=== PATIENT | female | born 1935 | race Caucasian/White ===

== ENCOUNTER 2018-02-10 00:02 | Outpatient (CLI) | payer MEDICARE, BC, SELFPAY ==
--- NOTE | 2018-02-10 09:00 | DI.MAMMO_ITS ---
SYMPTOMS/DIAGNOSIS: SCREENING MAMMO, Z12.31, FAMILY H/O BREAST CA, Z80.3 BILATERAL SCREENING MAMMOGRAM: Mammograms were interpreted according to the usual protocol including computer analysis with CAD system, tomosynthesis and C view imaging. Comparison is made with exams from 2014 through 2017. The breasts are composed of scattered fibroglandular densities. No suspicious masses or suspicious microcalcifications are seen. There has been no significant change. IMPRESSION: Category 1B, negative mammogram. Continued screening should be based on the patient's clinical status given her age. [facility] ASSESSMENT OF FINDINGS: Negative. Category 1. Patient will receive a letter notifying them of these results. BI-RADS category B. There are scattered areas of fibroglandular density.
== END 2018-02-10 00:22 ==
PROVIDERS: PCP Nurse Practitioner Family; Visit Provider Nurse Practitioner Family
DX: Z12.31 Encounter for screening mammogram for malignant neoplasm of breast (principal); Z80.3 Family history of malignant neoplasm of breast
CPT/HCPCS: 77063; 77067

== ENCOUNTER 2018-02-12 08:05 | Outpatient (REF) | payer MEDICARE, BC, SELFPAY ==
[2018-02-12 13:03] LABS: Anion Gap 6.3 mmol/L (3-11); BUN 15 mg/dL (7-18); CO2 30.7 mmol/L (21.0-32.0); CREATININE 0.67 mg/dL (0.55-1.02); Calcium 9.2 mg/dL (8.5-10.1); Chloride 104 mmol/L (98-107); Cholesterol 279 mg/dL (50-200); Glucose 94 mg/dL (70-100); HDL Cholesterol 73 mg/dL (40-60); LDL CHOLESTEROL 188 mg/dL (<100); Potassium 4.1 mmol/L (3.5-5.1); Sodium 141 mmol/L (136-145); Triglyceride 89 mg/dL (30-150)
== END 2018-02-12 08:25 ==
LOC: NCHCN 08:05
PROVIDERS: PCP Nurse Practitioner Family; Visit Provider Nurse Practitioner Family
DX: I10 Essential (primary) hypertension (principal); E78.5 Hyperlipidemia, unspecified
CPT/HCPCS: 80048; 80061; 83721

== ENCOUNTER 2018-03-31 08:09 | Emergency (ER) | payer MEDICARE, BC, SELFPAY ==
[2018-03-31 08:23] VITALS: BP 159/78; PULSE 77; RESP 16; TEMP 36.5; O2SAT 97
[2018-03-31 08:28] LABS: Bilirubin Negative (Negative); Blood Small (Negative); Clarity Clear; Glucose Negative (Negative); Ketones Negative (Negative); Leukocyte Esterase Negative (Negative); Nitrite Negative (Negative); Specific Gravity 1.015 (1.005-1.025); Urobilinogen 0.2 EU/dL (Up TO 0.2); pH 7.5 (5-8)
[2018-03-31 08:40] LABS: Bacteria Few HPF (Negative); C & S Indicated? No/Sq. Contamination; Casts Negative LPF (Negative); Crystals Negative HPF (Negative); Epithelial Cells Moderate HPF (Negative); Mucus Moderate (Negative); Other Cells Rare Yeast (Negative); RBC 0-2 (0-2); WBC 0-2 HPF (0-5)
--- NOTE | 2018-03-31 08:42 | DI.CT_ITS ---
SYMPTOM/DIAGNOSIS: RT LOWER/ ? ABD WALL PAIN CT ABDOMEN AND PELVIS: There are no prior comparison exams. Images were performed from the lung bases through the ischial tuberosities after IV and oral contrast. The lung bases are clear. There is a small hiatal hernia. There are several liver cysts, the largest in the right lobe measuring k7.5 cm in diameter. The patient is status post cholecystectomy. There is no biliary dilatation. The spleen, adrenals and pancreas appear normal. There are no renal calculi or hydronephrosis. The bladder appears normal. The patient is status post hysterectomy. There is prominent colonic diverticulosis, greatest at the sigmoid. There is a moderate increased quantity of stool. There are no inflammatory changes. The appendix appears normal. There is no small bowel dilatation. Degenerative changes are seen in the spine. The aorta shows calcification and is normal in diameter. There is no inguinal or abdominal wall hernia. IMPRESSION: Diverticulosis. No evidence of diverticulitis. Small hiatal hernia. Large liver cysts.
--- NOTE | 2018-03-31 08:46 | ED.GENADUL_ITS ---
Discharge Plan Disposition Patient Disposition: HOME Condition: Improving Discharge Details Chief Complaint: Abd Prob Clinical Impression: Abdominal wall strain Primary Care Provider: Elyssa Mi ED Provider: Jerman Severino Home Meds and New Rx's Prescriptions: No Action No Known Home Meds RF: 0 Discharge Instructions Instructions: Muscle Strain (ED) Additional Instructions: May use ibuprofen 400-600 mg every 8 hours as needed for pain, take with food. May apply warm compress to area. Resume routine and activities as tolerated. Please follow-up with regular doctor if not improving in 3-5 days time Return if you develop a fever, vomiting, worsening pain, a rash or any other acute concern Medical Decision Making Pleasant 82-year-old female with intermittent episodes of abdominal pain that has been primarily positional over days to weeks time. No change of bowel or bladder habits. No fever. No weight loss or night sweats. She is well-appearing with unremarkable vital signs. I do not appreciate a spigelian hernia or other mass on exam. Differential diagnosis would include colitis, adenitis, abdominal wall strain or pathology. Patient's laboratories including CBC, conference of panel with LFTs, and urinalysis are unremarkable. Her imaging reveals a hepatic cyst and other chronic changes but no acute findings. She subsequently recalls initiating a new abdominal exercise program and this may be abdominal wall strain. Discussed with her home management as well as return precautions. Stable for outpatient management at this time. Lab Data Lab results reviewed: Yes I reviewed the patient's lab results. Laboratory Results - last 24 hr 03/31/18 03/31/18 03/31/18 08:20 08:50 08:50 WBC 6.12 RBC 4.83 Hgb 15.1 Hct 44.0 MCV 91.1 MCH 31.3 MCHC 34.3 RDW 12.9 Plt Count 263 MPV 10.5 Immature Gran % 0.0 Neutrophils % 71.3 Lymphocytes % 16.2 Monocytes % 8.3 Eosinophils % 3.9 Basophils % 0.3 Absolute Neutrophils 4.36 Absolute Lymphocytes 0.99 L Absolute Monocytes 0.51 Absolute Eosinophils 0.24 Absolute Basophils 0.02 Sodium 142 Potassium 3.8 Chloride 105 Carbon Dioxide 27.4 Anion Gap 9.6 BUN 14 Creatinine 0.67 Estimated GFR/1.73 m2 >= 60.00 Glucose 105 H Calcium 8.7 Magnesium 2.2 Total Bilirubin 0.6 AST 15 ALT 19 Alkaline Phosphatase 93 Total Protein 7.3 Albumin 3.6 Urine Color Yellow Urine Clarity Clear Urine pH 7.5 Ur Specific [place] 1.015 Urine Protein Negative Urine Ketones Negative Urine Blood Small H Urine Nitrite Negative Urine Bilirubin Negative Urine Urobilinogen 0.2 Ur Leukocyte Esterase Negative Urine RBC 0-2 Urine WBC 0-2 Ur Epithelial Cells Moderate Urine Crystals Negative Urine Bacteria Few Urine Casts Negative Urine Mucus Moderate Urine Other Rare yeast Ur Culture Indicated? No/sq. contamination Urine Glucose Negative HPI General Mode of arrival: ambulatory . Date/Time Provider Initiated Documentation: 03/31/18 08:21 . Limitations to Documentation: no limitations . Information obtained by: patient . History of Present Illness 82 year old F presents to the emergency department with the chief complaint of Right abdominal pain, intermittent over days time. No change with urine, described as mild, Quality is described as dull, and is localized to the abdomen and right. Patient reports no radiation. Patient started experiencing this day(s) and it has been intermittent. No relieving factors improve symptom(s), No exacerbating factors reported . Patient notes no other symptoms.. HPI Narrative: Abdominal pain is been intermittent, primarily occurs while standing, improved with resting. Denies trauma or injury. No bowel or bladder changes per Related Data Home Medications Medication Instructions Recorded Confirmed Unknown [No Known Home Meds] 03/31/18 03/31/18 Allergies Allergy/AdvReac Type Severity Reaction Status Date / Time No Known Allergies Allergy Unverified 03/31/18 08:30 General Stated Complaint: Abd Prob NADINE: 3 Review of Systems Review of Systems 8 systems reviewed and otherwise neg PFSH Social History Smoking/Tobacco Use Status: Former Tobacco Use Social History Smoking/Tobacco Use Status: Former Tobacco Use Exam Narrative Exam Narrative: GEN: awake, alert, oriented 3. Pleasant, well groomed, interactive. HEAD: Normocephalic, atraumatic ENT: Mucous membranes moist, oropharynx unremarkable, External ear exam unremarkable EYES: PERRL, EOMI NECK: Full ROM, no JACKI, no menigismus CHEST/RESP: Nontender, clear to auscultation bilateral, no wheeze/rhonchi/rales CARDIOVASCULAR: RRR, no murmur, rub minna. 2+ Rad pulse bilateral ABDOMEN: Soft, tender in the right lower quadrant/abdominal wall, no mass. + Bowel sounds EXT: Full ROM, no edema, no rash Neuro: Grossly normal neurologic exam, conversant, interactive. Psych: Speech fluent, thoughts congruent, affect normal Course Vital Signs Temperature 36.5 C 03/31/18 08:23 Pulse 77 03/31/18 08:23 Respiratory Rate 16 03/31/18 08:23 Blood Pressure 159/78 H 03/31/18 08:23 Pulse Oximetry 97 03/31/18 08:23 Temperature 36.5 C 03/31/18 08:23 Temperature Source Temporal Artery Scan 03/31/18 08:23 Pulse 77 03/31/18 08:23 Respiratory Rate 16 03/31/18 08:23 Respiratory Effort Non-Labored 03/31/18 08:28 Blood Pressure 159/78 H 03/31/18 08:23 Blood Pressure Position Sitting 03/31/18 08:23 Pulse Oximetry 97 03/31/18 08:23 Oxygen Delivery Method Room Air 03/31/18 08:23 Oxygen Flow Rate 0 03/31/18 08:23 Pain Level 2 03/31/18 08:23 Lab/Test Results Lab/Test Results: Laboratory Tests Range/Units 03/31/18 08:20 Urine Color (Yellow) Yellow Urine Clarity Clear Urine pH (5-8) 7.5 Ur Specific [place] (1.005-1.025) 1.015 Urine Protein (Negative) mg/dL Negative Urine Ketones (Negative) mg/dL Negative Urine Blood (Negative) Small H Urine Nitrite (Negative) Negative Urine Bilirubin (Negative) Negative Urine Urobilinogen (Up TO 0.2) EU/dL 0.2 Ur Leukocyte Esterase (Negative) Negative Urine RBC (0-2) 0-2 Urine WBC (0-5) HPF 0-2 Ur Epithelial Cells (Negative) HPF Moderate Urine Crystals (Negative) HPF Negative Urine Bacteria (Negative) HPF Few Urine Casts (Negative) LPF Negative Urine Mucus (Negative) Moderate Urine Other (Negative) Rare yeast Ur Culture Indicated? No/sq. contamination Urine Glucose (Negative) mg/dL Negative
[2018-03-31] MEDS: Omnipaque 350 MG/ML 50 ML BTL PO (08:52)
[2018-03-31 09:02] LABS: Absolute Basophil Count 0.02 k/cumm (0.0-0.2); Absolute Eosinophil Count 0.24 k/cumm (0.0-0.7); Absolute Lymphocyte Count 0.99 k/cumm (1.2-3.4); Absolute Monocyte Count 0.51 k/cumm (0.11-0.7); Absolute Neutrophil Count 4.36 k/cumm (1.2-6.7); Basophils % 0.3; Eosinophils % 3.9; HGB 15.1 g/dL (12.0-15.5); Lymphocytes % 16.2; Mean Corp. HGB Concentration 34.3 g/dL (32.0-36.0); Mean Corpuscular Hemoglobin 31.3 pg (27.0-33.0); Mean Corpuscular Volume 91.1 fL (80-95); Mean Platelet Volume 10.5 fL (8.0-11.0); Monocytes % 8.3; Neutrophils % 71.3; Platelet Count 263 x1000/uL (130-400); RBC 4.83 m/cumm (4.00-5.20); RBC Distribution Width 12.9 % (11.7-14.6); White Blood Cell Count 6.12 k/cumm (4.4-10.8)
[2018-03-31 09:13] LABS: ALT 19 U/L (12-78); AST 15 U/L (15-37); Albumin 3.6 g/dL (3.4-5.0); Alkaline Phosphatase 93 U/L (46-116); Anion Gap 9.6 mmol/L (3-11); BUN 14 mg/dL (7-18); Bilirubin, Total 0.6 mg/dL (0.2-1.0); CO2 27.4 mmol/L (21.0-32.0); CREATININE 0.67 mg/dL (0.55-1.02); Calcium 8.7 mg/dL (8.5-10.1); Chloride 105 mmol/L (98-107); Glucose 105 mg/dL (70-100); Magnesium 2.2 mg/dL (1.8-2.4); Potassium 3.8 mmol/L (3.5-5.1); Sodium 142 mmol/L (136-145); Total Protein 7.3 g/dL (6.4-8.2)
[2018-03-31] MEDS: Omnipaque 350 MG/ML 100 ML BTL IV (10:37)
[2018-03-31 10:39] VITALS: BP 172/65; PULSE 70; RESP 18; TEMP 36.7; O2SAT 97
[2018-03-31 11:06] VITALS: BP 172/65; PULSE 70; RESP 18; TEMP 36.7; O2SAT 97
== END 2018-03-31 10:57 | disposition home or self-care (01) ==
LOC: ER 11:24
PROVIDERS: Emergency Provider Emergency Medicine; PCP Nurse Practitioner Family
DX: S39.011A Strain of muscle, fascia and tendon of abdomen, initial encounter (principal); X50.9XXA Other and unspecified overexertion or strenuous movements or postures, initial encounter; I10 Essential (primary) hypertension
CPT/HCPCS: 36415; 80053; 99285; 74177; 81003; 81015; 83735; 85025; 99284; J3490; Q9967

== ENCOUNTER 2019-03-31 11:45 | Outpatient (REF) | payer MEDICARE, BC, SELFPAY ==
[2019-03-31 20:43] LABS: ALT 19 U/L (14-59); AST 15 U/L (15-37); Albumin 3.6 g/dL (3.4-5.0); Alkaline Phosphatase 85 U/L (46-116); BUN 17 mg/dL (7-18); Bilirubin, Total 0.5 mg/dL (0.2-1.0); CREATININE 0.71 mg/dL (0.55-1.02); Calcium 9.1 mg/dL (8.5-10.1); Calculated LDL 193 mg/dL; Chloride 106 mmol/L (98-107); Cholesterol 271 mg/dL (<200); Glucose 90 mg/dL (74-106); HDL Cholesterol 68 mg/dL (40-60); Potassium 4.4 mmol/L (3.5-5.1); Sodium 144 mmol/L (136-145); Triglyceride 54 mg/dL (<150)
== END 2019-03-31 12:05 ==
LOC: NCHCN 11:45
PROVIDERS: PCP Nurse Practitioner Family; Visit Provider Nurse Practitioner Family
DX: E78.5 Hyperlipidemia, unspecified (principal); I10 Essential (primary) hypertension; K30 Functional dyspepsia; M85.80 Other specified disorders of bone density and structure, unspecified site; F17.210 Nicotine dependence, cigarettes, uncomplicated
CPT/HCPCS: 80053; 80061

== ENCOUNTER 2019-05-14 12:32 | Outpatient (REF) | payer MEDICARE, BC, SELFPAY ==
[2019-05-14 14:00] LABS: ALT 20 U/L (14-59); AST 16 U/L (15-37); Albumin 3.8 g/dL (3.4-5.0); Alkaline Phosphatase 95 U/L (46-116); Anion Gap 9.1 mmol/L (3-11); BUN 14 mg/dL (7-18); Bilirubin, Total 0.6 mg/dL (0.2-1.0); CO2 29.9 mmol/L (21.0-32.0); CREATININE 0.71 mg/dL (0.55-1.02); Calcium 9.4 mg/dL (8.5-10.1); Calculated LDL 171 mg/dL; Chloride 105 mmol/L (98-107); Cholesterol 257 mg/dL (<200); Glucose 94 mg/dL (74-106); HDL Cholesterol 70 mg/dL (40-60); Potassium 4.7 mmol/L (3.5-5.1); Sodium 144 mmol/L (136-145); Total Protein 7.1 g/dL (6.4-8.2); Triglyceride 80 mg/dL (<150)
== END 2019-05-14 12:52 ==
LOC: NCHCN 12:32
PROVIDERS: PCP Nurse Practitioner Family; Visit Provider Nurse Practitioner Family
DX: E78.5 Hyperlipidemia, unspecified (principal); I10 Essential (primary) hypertension
CPT/HCPCS: 80053; 80061

== ENCOUNTER 2019-06-11 16:34 | Outpatient (REF) | payer MEDICARE, BC, SELFPAY ==
[2019-06-11 21:21] LABS: Abs Immature Grans 0.01 k/cumm (0.0-0.09); Absolute Basophil Count 0.01 k/cumm (0.0-0.2); Absolute Eosinophil Count 0.17 k/cumm (0.0-0.7); Absolute Monocyte Count 0.58 k/cumm (0.11-0.7); Absolute Neutrophil Count 2.72 k/cumm (1.2-6.7); Basophils % 0.2; Eosinophils % 3.5; HCT 43.7 % (36.0-46.0); HGB 15.3 g/dL (12.0-15.5); Immature Grans % 0.2 %; Lymphocytes % 28.6; Mean Corpuscular Hemoglobin 31.7 pg (27.0-33.0); Mean Corpuscular Volume 90.7 fL (80-95); Mean Platelet Volume 10.8 fL (8.0-11.0); Monocytes % 11.9; Neutrophils % 55.6; Platelet Count 274 x1000/uL (130-400); RBC 4.82 m/cumm (4.00-5.20); RBC Distribution Width 13.1 % (11.7-14.6); White Blood Cell Count 4.89 k/cumm (4.4-10.8)
[2019-06-11 21:27] LABS: ALT 20 U/L (14-59); AST 23 U/L (15-37); Albumin 3.6 g/dL (3.4-5.0); Alkaline Phosphatase 93 U/L (46-116); Anion Gap 7.7 mmol/L (3-11); BUN 10 mg/dL (7-18); Bilirubin, Total 0.4 mg/dL (0.2-1.0); CO2 29.3 mmol/L (21.0-32.0); CREATININE 0.69 mg/dL (0.55-1.02); Calcium 9.7 mg/dL (8.5-10.1); Chloride 106 mmol/L (98-107); Creatine Kinase 38 U/L (26-192); Glucose 83 mg/dL (74-106); Potassium 3.5 mmol/L (3.5-5.1); Sodium 143 mmol/L (136-145); Total Protein 6.7 g/dL (6.4-8.2)
== END 2019-06-11 16:54 ==
LOC: NCHCN 16:34
PROVIDERS: PCP Nurse Practitioner Family; Visit Provider Internal Medicine
DX: R53.1 Weakness (principal); R07.89 Other chest pain
CPT/HCPCS: 80053; 82550; 85025

== ENCOUNTER 2019-06-15 01:21 | Outpatient (CLI) | payer MEDICARE, BC, SELFPAY ==
--- NOTE | 2019-06-15 | DI.RAD_ITS ---
EXAM: XR CHEST 2V PA LATERAL CLINICAL HISTORY: ATYPICAL CHEST PAIN R07.89, WEAKNESS R53.1 TECHNIQUE: COMPARISON: No exams were available for comparison FINDINGS: PA and lateral chest was performed. No prior radiographs available for comparison. Cardiac size is within normal limits. Lungs are predominantly clear but there is a question of a vaguely nodular rad iodensity projected over the right infrahilar region, possibility of intrapulmonary nodule or consoli dation is raised. No pleural effusion seen. IMPRESSION: A question nodular right infrahilar radiodensity, intrapulmonary nodule or consolidation may be prese nt. Follow-up chest film recommended following treatment, if the findings do not resolve additional evaluation with chest CT would be recommended to evaluate the possibility of intrapulmonary mass.
== END 2019-06-15 01:41 ==
PROVIDERS: PCP Nurse Practitioner Family; Visit Provider Internal Medicine
DX: R07.89 Other chest pain (principal); R53.1 Weakness; R91.8 Other nonspecific abnormal finding of lung field
CPT/HCPCS: 71046

== ENCOUNTER 2019-06-29 00:46 | Outpatient (CLI) | payer MEDICARE, BC, SELFPAY ==
--- NOTE | 2019-06-29 | DI.CT_ITS ---
EXAM: CT CHEST W CLINICAL HISTORY: F/U ABNL CHEST XRAY, R91.8, ? RT HILAR MASS OR ADENOPATHY TECHNIQUE: Imaging Protocol: Axial computed tomography images with coronal and sagittal reformatted images were created and reviewed CONTRAST MATERIAL: Intravenous: Omnipaque 350 Contrast volume:70 mL contrast route:IV - XR CHEST 2V PA LATERAL from 06/15/2019 FINDINGS: Tracheobronchial tree: Patent where visualized. Mediastinum and Mine: No dominant adenopathy or fluid collection. Small hiatal hernia. Pulmonary parenchyma: Small infiltrate in the posterior aspect of the right upper lobe. No wireless architect ural distortion. No pulmonary nodule. Pleura: No effusion or pneumothorax. Heart: The heart is not dilated. Mild coronary artery calcification. Aorta: No pericardial effusion. Atherosclerosis. Upper abdomen: Stable hepatic cysts. Lymph nodes: Within normal limits. Bones: Degenerative changes present. IMPRESSION: 1. No evidence of a pulmonary nodule or thoracic metastatic disease. 2. Right upper lobe infiltrate. This may represent atelectasis or pneumonia. 3. Stable hepatic cysts. DATA REPOSITORY: All CT scans at this facility are submitted to the National Radiology Data Registry (NRDR) Dose Index Registry (DIR) with the [employer] (A[employer]). RADIATION OPTIMIZATION: All CT scans at this facility use at least one of these dose optimization te chniques: automated exposure control; mA and/or kV adjustment per patient size (includes targeted exa ms where dose is matched to clinical indication); or iterative reconstruction.
[2019-06-29] MEDS: Omnipaque 350 MG/ML 100 ML BTL IV (13:56)
== END 2019-06-29 01:06 ==
PROVIDERS: PCP Nurse Practitioner Family; Visit Provider Internal Medicine
DX: R91.8 Other nonspecific abnormal finding of lung field (principal); K44.9 Diaphragmatic hernia without obstruction or gangrene; K76.89 Other specified diseases of liver
CPT/HCPCS: 71260; J3490

== ENCOUNTER 2019-07-02 13:51 | Outpatient (REF) | payer MEDICARE, BC, SELFPAY ==
[2019-07-02 13:00] LABS: ALT 18 U/L (14-59); AST 17 U/L (15-37); Albumin 3.4 g/dL (3.4-5.0); Alkaline Phosphatase 95 U/L (46-116); Anion Gap 7.2 mmol/L (3-11); BUN 20 mg/dL (7-18); Bilirubin, Total 0.3 mg/dL (0.2-1.0); CO2 28.8 mmol/L (21.0-32.0); CREATININE 0.66 mg/dL (0.55-1.02); Calcium 8.6 mg/dL (8.5-10.1); Calculated LDL 183 mg/dL (<100); Chloride 105 mmol/L (98-107); Cholesterol 264 mg/dL (<200); Glucose 99 mg/dL (74-106); HDL Cholesterol 67 mg/dL (40-60); Potassium 4.1 mmol/L (3.5-5.1); Sodium 141 mmol/L (136-145); Total Protein 6.6 g/dL (6.4-8.2); Triglyceride 73 mg/dL (<150)
== END 2019-07-02 14:11 ==
LOC: NCHCN 13:51
PROVIDERS: PCP Nurse Practitioner Family; Visit Provider Nurse Practitioner Family
DX: E78.5 Hyperlipidemia, unspecified (principal); I10 Essential (primary) hypertension; K30 Functional dyspepsia; R07.89 Other chest pain; A60.00 Herpesviral infection of urogenital system, unspecified; M85.80 Other specified disorders of bone density and structure, unspecified site; Z80.3 Family history of malignant neoplasm of breast; R32 Unspecified urinary incontinence
CPT/HCPCS: 80053; 80061

== ENCOUNTER 2020-07-06 09:06 | Outpatient (REF) | payer MEDICARE, BC, SELFPAY ==
[2020-07-06 14:22] LABS: ALT 19 U/L (14-59); AST 15 U/L (15-37); Albumin 3.6 g/dL (3.4-5.0); Alkaline Phosphatase 94 U/L (46-116); Anion Gap 6.2 mmol/L (3-11); BUN 19 mg/dL (7-18); Bilirubin, Total 0.6 mg/dL (0.2-1.0); CO2 29.8 mmol/L (21.0-32.0); CREATININE 0.7 mg/dL (0.55-1.02); Calcium 9.6 mg/dL (8.5-10.1); Chloride 106 mmol/L (98-107); Glucose 108 mg/dL (74-106); Potassium 4.9 mmol/L (3.5-5.1); Sodium 142 mmol/L (136-145); Total Protein 7.1 g/dL (6.4-8.2)
== END 2020-07-06 09:07 | disposition home or self-care (01) ==
LOC: NCHCN 09:06
PROVIDERS: PCP Nurse Practitioner Family; Visit Provider Nurse Practitioner Family
DX: I10 Essential (primary) hypertension (principal); E78.5 Hyperlipidemia, unspecified
CPT/HCPCS: 80053

== ENCOUNTER 2020-09-08 13:17 | Outpatient (REF) | payer MEDICARE, BC, SELFPAY ==
[2020-09-08 21:34] LABS: Anion Gap 11.1 mmol/L (3-11); BUN 10 mg/dL (7-18); CO2 23.9 mmol/L (21.0-32.0); CREATININE 0.6 mg/dL (0.55-1.02); Chloride 108 mmol/L (98-107); Glucose 92 mg/dL (74-106); Sodium 143 mmol/L (136-145); TSH (W/Ref FT4) 2.09 uIU/mL (0.36-3.74); Vitamin B12 601 pg/mL (193-986)
== END 2020-09-08 13:18 | disposition home or self-care (01) ==
LOC: NCHCN 13:17
PROVIDERS: PCP Nurse Practitioner Family; Visit Provider Nurse Practitioner Family
DX: G60.9 Hereditary and idiopathic neuropathy, unspecified (principal); R25.1 Tremor, unspecified
CPT/HCPCS: 80048; 82607; 84443

== ENCOUNTER 2020-09-09 19:14 | Outpatient (REF) | payer MEDICARE, BC, SELFPAY ==
[2020-09-09 19:33] LABS: Hemoglobin A1C 5.7 % (<5.7)
== END 2020-09-09 19:15 | disposition home or self-care (01) ==
LOC: NCHCN 19:14
PROVIDERS: PCP Nurse Practitioner Family; Visit Provider Nurse Practitioner Family
DX: G60.9 Hereditary and idiopathic neuropathy, unspecified (principal); R79.89 Other specified abnormal findings of blood chemistry
CPT/HCPCS: 83036

== ENCOUNTER 2020-12-22 17:17 | Outpatient (REF) | payer MEDICARE, BC, SELFPAY ==
[2020-12-22 20:45] LABS: Abs Immature Grans 0.01 10^3/uL (0.0-0.06); Absolute Basophil Count 0.05 10^3/uL (0.0-0.2); Absolute Eosinophil Count 0.17 10^3/uL (0.0-0.7); Absolute Lymphocyte Count 1.27 10^3/uL (1.2-3.4); Absolute Monocyte Count 0.57 10^3/uL (0.1-0.8); Absolute Neutrophil Count 3.58 10^3/uL (1.2-6.7); Basophils % 0.9; HCT 45.3 % (36.0-46.0); Immature Grans % 0.2; Lymphocytes % 22.5; MCH 30.8 pg (27.0-33.0); MCHC 33.1 % (32.0-36.0); MPV 11.4 fL (8.0-11.0); Monocytes % 10.1; Neutrophils % 63.3; Nucleated RBC 0 %; Platelet Count 261 10^3/uL (130-400); RBC 4.87 10^6/uL (3.93-5.22); RDW 13.1 % (11.7-14.6); WBC 5.65 10^3/uL (4.4-10.8)
[2020-12-22 21:06] LABS: ALT 21 U/L (14-59); AST 19 U/L (15-37); Albumin 3.9 g/dL (3.4-5.0); Alkaline Phosphatase 95 U/L (46-116); Anion Gap 9.1 mmol/L (3-11); BUN 10 mg/dL (7-18); Bilirubin, Total 0.4 mg/dL (0.2-1.0); CO2 28.9 mmol/L (21.0-32.0); CREATININE 0.7 mg/dL (0.55-1.02); Calcium 9.1 mg/dL (8.5-10.1); Chloride 105 mmol/L (98-107); Glucose 102 mg/dL (74-106); Potassium 3.9 mmol/L (3.5-5.1); Sodium 143 mmol/L (136-145); Total Protein 7.1 g/dL (6.4-8.2)
[2020-12-23 17:03] LABS: CRP, High Sensitivity 2.35 mg/L (See Note)
[2020-12-25 11:42] LABS: COVID-19 RT-PCR UVMMC Result Negative (Negative)
== END 2020-12-22 17:18 | disposition home or self-care (01) ==
LOC: NCHCN 17:17
PROVIDERS: PCP Nurse Practitioner Family; Visit Provider Family Medicine
DX: Z20.822 Contact with and (suspected) exposure to COVID-19 (principal); J06.9 Acute upper respiratory infection, unspecified; R53.83 Other fatigue
CPT/HCPCS: 80053; 86141; U0003; 85025

== ENCOUNTER 2021-01-20 16:27 | Outpatient (REF) | payer MEDICARE, BC, SELFPAY ==
[2021-01-20 20:48] LABS: Iron 83 ug/dL (50-170)
[2021-01-20 21:17] LABS: NT-proBNP 255 pg/mL (<300)
[2021-01-23 11:26] LABS: Lyme Ab w Rflx to Lyme Confirm Negative (Negative)
[2021-01-24 16:48] LABS: Anaplasma phagocytophilum Negative (Negative); B. miyamotoi PCR Negative (Negative); Babesia divergens/MO-1 Negative (Negative); Babesia duncani Negative (Negative); Babesia microti Negative (Negative); Ehrlichia chaffeensis Negative (Negative); Ehrlichia ewingii/canis Negative (Negative); Ehrlichia muris eauclairensis Negative (Negative)
== END 2021-01-20 16:28 | disposition home or self-care (01) ==
LOC: NCHCN 16:27
PROVIDERS: PCP Nurse Practitioner Family; Visit Provider Nurse Practitioner Family
DX: R53.83 Other fatigue (principal)
CPT/HCPCS: 87798; 83540; 83880; 86618

== ENCOUNTER 2021-01-24 01:09 | Outpatient (CLI) | payer MEDICARE, BC, SELFPAY ==
--- NOTE | 2021-01-24 | DI.RAD_ITS ---
Exam(s) XR CHEST 2V PA LATERAL EXAM: XR CHEST 2V PA LATERAL CLINICAL HISTORY: SOB,R06.02,FATIGUE,R53.83,SMOKER,CHEST PAIN,R07.9 TECHNIQUE: 2D digital imaging was performed of the chest. Two images were obtained. PA and lateral views were obtained. COMPARISON: CR XR CHEST 2V PA LATERAL from 06/15/2019 FINDINGS: MEDIASTINUM: Normal. HEART: Normal. PULMONARY VASCULATURE: Normal. LUNGS: Clear. PLEURAL SPACE: No pleural effusion or pneumothorax. BONE:Within normal limits for the patient's age. OTHER FINDINGS:Normal. IMPRESSION: No acute pulmonary findings. DATA REPOSITORY: RADIATION DOSE DELIVERED:
== END 2021-01-24 01:29 ==
PROVIDERS: PCP Nurse Practitioner Family; Visit Provider Nurse Practitioner Family
DX: R06.02 Shortness of breath (principal); R53.83 Other fatigue; R07.9 Chest pain, unspecified
CPT/HCPCS: 71046

== ENCOUNTER 2021-07-20 10:48 | Inpatient (IN) | payer MEDICARE, BC, SELFPAY ==
[2021-07-20] VITALS (65 sets, daily range): BP systolic 103–193; BP diastolic 49–92; PULSE 51–95; RESP 11–28; TEMP 35.7–36.6; O2SAT 94–98
--- NOTE | 2021-07-20 10:45 | RT.EKG_ITS ---
APPROVED REPORT Exam: Resting ECG Reason for Exam: Chest Pain Patient Location: E HR:79 bpm ECG Measurements Heart Rate 79 AXIS CA 174 P 55 QRSd 95 QRS -45 QT 414 T 119 QTc 474 Conclusion Sinus arrhythmia...V-rate 65- 90, variation>10% Left anterior fascicular block...axis(240,-40), init forces inf Nonspecific repol abnormality, lateral leads...ST dep, T neg, I aVL V5 V6. Sinus. T wave inversion in I and aVL. Less than 1mm ST depression in V5-6. No STEMI. I have reviewed and interpreted ECG and agree with software generated interpretation.
--- NOTE | 2021-07-20 10:45 | DI.RAD_ITS ---
Exam(s) XR CHEST 2V PA LATERAL EXAM: XR CHEST 2V PA LATERAL CLINICAL HISTORY: Chest Pain TECHNIQUE: 2D digital imaging was performed. COMPARISON: CR XR CHEST 2V PA LATERAL from 01/24/2021 FINDINGS: MEDIASTINUM: Normal. HEART: Normal. PULMONARY VASCULATURE: Normal. LUNGS: Clear. PLEURAL SPACE: No pleural effusion or pneumothorax. BONE:Unremarkable for age. IMPRESSION: No acute abnormality. DATA REPOSITORY: RADIATION DOSE DELIVERED:
--- NOTE | 2021-07-20 11:05 | W.ED.GENAD ---
Discharge Plan Disposition Patient Disposition: [facility] INPATIENT Condition: Serious Discharge Details Clinical Impression: Non-ST elevation myocardial infarction (NSTEMI) Primary Care Provider: Elyssa Mi ED Provider: Winter Sims Home Meds and New Rx's Prescriptions: No Action amlodipine [Norvasc] 5 mg tablet 5 mg PO DAILY 0RF Label Comments: Take 1 tablet by mouth once a day Medical Decision Making 85-year-old female presents to the ER with chief complaint of midsternal chest pain which radiates into her left arm which began at 3 AM in the morning. She states that it was worse earlier. Has now improved. She reports mild pain. Denies any shortness of breath, nausea vomiting diarrhea. Intermittent mild swelling noted to her bilateral lower extremities. Denies any trauma. No pain with deep inspiration. She was seen at [facility] prior to arrival and sent here for further evaluation. Cardiac work-up ordered including aspirin, chest x-ray serial troponins. EKG shows ST depression in lateral leads V5 V6 and T wave inversion in 1 and aVL 1135: Troponin 324 which is elevated 1200: [facility] transfer Center called for transfer request and cardiology consult. 1259: [facility] Symone BARNETT, also spoke with Dr. Collado who is the attending physician with cardiology regarding patient case and details. They recommend a nitro drip and they are currently lifting for tomorrow for NSTEMI. They do not feel that it is necessary to activate Field [employer] at this time. I did let them know that the repeat troponin is more elevated at 775. Symone Etienne also recommended metoprolol 12.5 mg p.o. every 6 hours as needed blood pressure. While on phone with [facility] informed by staff nurse midwife that patient is having 10 out of 10 pain midepigastrium/midsternal. Instructed to give sublingual nitro. Informed by staff nurse midwife that the sublingual nitro brought patient's pain down to a 0. Will discuss with hospitalist regarding patient. He also do recommend a echo cardiogram. 1259: Hospitalist paged. 1315: Spoke with Dr. Muhammad regarding patient case and he reccommends consult with [facility] cardiology if they cannot accept, he will accept with the expectation that patient is to be transferred possibly to [facility] in the a.m. accepting physician Dr. Daugherty for tomorrow morning for possible catheter. 1319: [facility] transfer center paged. They report that they are lifting 24 to 48 hours further NSTEMI is currently. Hospitalist repaged, he agrees to accept patient for admission. The room 1354 called to the room by staff nurse midwife patient is complaining of some increase mid epigastric/chest pain rates 5 out of 10 her blood pressure is 103/49. The nitro was turned up to 15 mics per minute. The IV was infiltrated on that left side. Nitro drip was stopped. Normal saline 1 L bolus up at bedside. Patient is laying down in supine position. Echo was at bedside. Heparin drip is infusing without difficulty. 1345: Third troponin came back at 1,120, repeat EKG performed. Seems somewhat improved still showing ST depression in 2 3 aVF. Consider left anterior fascicular block. Will relay to cardiology. 1434: [facility] transfer center notified to update on repeat elevated troponin. 1444: Patient reevaluation, she states that she feels better, she says that she still has a little bit of pain. I would estimate that this is a 1 or 2. Blood pressure is improved, blood pressure is now 158/69 after the nitro has been stopped. We will rediscuss with [facility], Spoke with Symone BARNETT, relayed Troponin information, third EKG faxed. 1445: [facility] Transfer Center called to discuss with cards attending. 1450: Spoke again with Dr. Collado with Cardiology to discuss third elevated troponin, third EKG and patient status with continued ongoing intermittent chest pain. He recommends re-starting/ continuing Nitro drip, he would like to be called if significant RVF otherwise admission should continue as planned. 1559: Informed by staff nurse midwife that PTT is greater than 155 per their protocol the heparin needs to be stopped for approximately 60-minute and restarted. Heparin stopped. I did suggest retrying PTT PT/INR to verify. I also do suggest to IV lines or central line. For the administration of medications. I did speak with Dr. Muhammad regarding patient status and update he verbalizes understanding. Patient at this time is pain-free. Patient hemodynamically stable condition up on transfer up to floor. HPI General Mode of arrival: ambulatory. Date/Time Provider Initiated Documentation: 07/20/21 10:50. Limitations to Documentation: no limitations. Information obtained by: patient, RN/MD ([facility]), RN notes reviewed and old records reviewed. HPI Narrative: 85-year-old female presents to the ER with chief complaint of midsternal chest pain which radiates into her left arm which began at 3 AM in the morning. She states that it was worse earlier. Has now improved. She reports mild pain. Denies any shortness of breath, nausea vomiting diarrhea. Intermittent mild swelling noted to her bilateral lower extremities. Denies any trauma. No pain with deep inspiration. She was seen at [facility] prior to arrival and sent here for further evaluation. Past medical history includes hypertension, hypercholesterolemia, surgical history includes cataract surgery Related Data Home Medications Medication Instructions Recorded Confirmed amlodipine 5 mg tablet (Norvasc) 5 mg PO DAILY 07/20/21 07/20/21 Allergies Allergy/AdvReac Type Severity Reaction Status Date / Time No Known Allergies Allergy Unverified 03/31/18 08:30 General Stated Complaint: Chest Pain NADINE: 2 Review of Systems All systems reviewed & are unremarkable except as noted in HPI and below Cardiovascular Cardiovascular: Reports chest pain, Reports chest pain at rest, Denies diaphoresis, Denies syncope, Reports leg edema and Denies dyspnea Respiratory Respiratory: Denies dyspnea Neurologic Neurologic: Denies syncope PFSH All Active Problems (Updated 07/20/21 @ 12:00 by Winter Sims) Non-ST elevation myocardial infarction (NSTEMI) (Acute) Social History Smoking risk assessment performed?: No Alcohol Intake: current Alcohol Intake frequency: 0-2 drinks per day Alcohol type: wine Drug use: Never Details: drinks a glass of wine each day Do you feel safe at home: Yes Do you feel safe in your relationship?: Yes Exam Narrative Exam Narrative: Constitutional: Alert and oriented x3. Appears stated age. Normal body habitus. Head: Normocephalic, no trauma. Eyes: Pupils PERRL, Red reflex noted, EOM's intact. Eyelids symmetrical without lesions, discharge, or swelling. ENT: Bilateral TM's WNL, External ear normal to inspection, no mastoid TTP, swelling, or erythema, Nasal turbinates WNL, no nasal discharge. Normal dentition, Posterior pharynx WNL, no exudate. Chest: RRR, Normal S1, S2, distal pulses intact. Resp: Lungs clear to auscultation bilaterally, no wheezes, rales, or rhonchi. Abdomen: Soft, non-distended, Normoactive bowel sounds all 4 quads. Musculoskeletal: Normal gait, 5/5 strength to all four extremities. Skin: No suspicious rashes or lesions. Capillary refill less than 2 sec. Neurologic: Cranial nerves II-XII intact. Alert and oriented x 3. Motor: No deficits noted. Sensory: Intact bilaterally all 4 extremities. Reflexes: DTR's intact bilaterally.. Hematologic/Lymphatic: No ecchymosis, no lymphadenopathy. Course Vital Signs Vital signs: Vital Signs Temperature 36.6 C 07/20/21 10:51 Pulse 77 07/20/21 10:51 Respiratory Rate 18 07/20/21 10:51 Blood Pressure 179/89 H 07/20/21 10:51 Pulse Oximetry 96 07/20/21 10:51 Temperature 36.6 C 07/20/21 10:51 Temperature Source Skin 07/20/21 10:51 Pulse 77 07/20/21 10:51 Respiratory Rate 18 07/20/21 11:03 Respiratory Effort 07/20/21 11:03 Respiratory Depth Normal 07/20/21 11:03 Respiratory Pattern Normal 07/20/21 11:03 Blood Pressure 179/89 H 07/20/21 10:51 Pulse Oximetry 96 07/20/21 10:51 Oxygen Delivery Method Room Air 07/20/21 10:51 Oxygen Flow Rate 0 07/20/21 10:51 Pain Level 4 07/20/21 10:51
[2021-07-20] MEDS: Aspirin 81 MG CHEW 324 MG CH (11:10)
[2021-07-20 11:26] LABS: Abs Immature Grans 0.02 10^3/uL (0.0-0.06); Absolute Basophil Count 0.03 10^3/uL (0.0-0.2); Absolute Lymphocyte Count 1.32 10^3/uL (1.2-3.4); Absolute Neutrophil Count 6.44 10^3/uL (1.2-6.7); Basophils % 0.4; Eosinophils % 1.2; HCT 46.9 % (36.0-46.0); HGB 15.9 g/dL (11.2-15.7); Immature Grans % 0.2; Lymphocytes % 15.7; MCH 30.9 pg (27.0-33.0); MCHC 33.9 % (32.0-36.0); MCV 91.1 fL (80-95); MPV 11.3 fL (8.0-11.0); Monocytes % 5.9; Neutrophils % 76.6; Nucleated RBC 0 %; Platelet Count 239 10^3/uL (130-400); RBC 5.15 10^6/uL (3.93-5.22); RDW-SD 43.5 fL; WBC 8.41 10^3/uL (4.4-10.8)
[2021-07-20 11:33] LABS: ALT 22 U/L (14-59); AST 31 U/L (15-37); Albumin 3.9 g/dL (3.4-5.0); Alkaline Phosphatase 107 U/L (46-116); Anion Gap 11.3 mmol/L (3-11); BUN 12 mg/dL (7-18); Bilirubin, Total 0.7 mg/dL (0.2-1.0); CO2 23.7 mmol/L (21.0-32.0); CREATININE 0.5 mg/dL (0.55-1.02); Calcium 9.1 mg/dL (8.5-10.1); Chloride 103 mmol/L (98-107); Glucose 116 mg/dL (74-106); Magnesium 2.3 mg/dL (1.8-2.4); Potassium 4.1 mmol/L (3.5-5.1); Sodium 138 mmol/L (136-145); Total Protein 7.6 g/dL (6.4-8.2)
[2021-07-20 11:36] LABS: Troponin I 324 ng/L (<or=60)
--- NOTE | 2021-07-20 11:45 | RT.EKG_ITS ---
APPROVED REPORT Exam: Resting ECG Reason for Exam: ACS Patient Location: E HR:71 bpm ECG Measurements Heart Rate 71 AXIS NC 180 P 36 QRSd 94 QRS -39 QT 447 T 125 QTc 480 Conclusion Sinus rhythm...normal P axis, V-rate 60- 99 Atrial premature complexes...SV complexes w/ short R-R intvls Left axis deviation...QRS axis (-30,-90) Abnormal T, consider ischemia, lateral leads...T <-0.20mV, I aVL V5 V6. Sinus. PACs. T wave inversion in I and aVL which are more pronounced compared to previous and now new T wave inversions in V6 with 1mm ST depression in V6. No STEMI. I have reviewed and interpreted ECG and agree with software generated interpretation.
[2021-07-20] MEDS: Clopidogrel 300 MG TAB PO (12:07)
[2021-07-20] MEDS: MORPHine 10 MG/ML VIAL 2 MG IVP (12:08)
[2021-07-20 12:50] LABS: INR 1.1 (0.9-1.1); Prothrombin Time 11.1 sec (9.3-11.0)
[2021-07-20] MEDS: nitroGLYcerin 0.4 MG TAB (12:51)
[2021-07-20 12:54] LABS: Troponin I 775 ng/L (<or=60)
[2021-07-20 12:58] LABS: Source Nasal/Nares
--- NOTE | 2021-07-20 13:00 | DI.US_ITS ---
APPROVED REPORT EXAM: Comprehensive 2D, Doppler, and color-flow Echocardiogram Patient Location: ER Abstract Maker: Rose Jaime RDCS (AE) Indications: NSTEMI Other Information Study Quality: Fair. Technically limited study due to inability to position patient, body habitus. Conclusion Normal left ventricular wall thickness and chamber size. Estimated ejection fraction is 50 to 55%. Segmental wall motion could not be accurately assessed Right ventricle was not well visualized Both atria are normal in size The aortic valve is sclerotic without stenosis or regurgitation Mild mitral annular calcification. Trace to mild mitral regurgitation Normal tricuspid valve with mild regurgitation. Estimated right ventricular systolic pressure is 28 mmHg Mildly dilated ascending aorta measuring 3.52 cm Wall motion Left Ventricle The left ventricle is normal size. Left ventricular systolic function is mildly decreased. There is n ormal left ventricular wall thickness. Regional wall motion abnormalities cannot be excluded. There i s no ventricular septal defect visualized. LVEF is 50-55%. Right Ventricle Right ventricle is not well visualized. Right ventricular systolic function could not be assessed. Th e RVSP is 27.9_ mmHg. Atria The left atrium size is normal. The right atrium size is normal. The interatrial septum is intact wit h no evidence for an atrial septal defect. Aortic Valve The Aortic valve is sclerotic. There is no aortic valvular stenosis. No aortic regurgitation is prese nt. Mitral Valve Mild mitral annular calcification. No evidence of mitral valve stenosis. Trace to mild mitral regurgi tation. Tricuspid Valve The tricuspid valve is normal in structure. There is no tricuspid valve stenosis. Mild tricuspid regu rgitation. Pulmonic Valve The pulmonary valve is normal in structure. There is no pulmonic valvular stenosis. There is no pulmo giancarlo valvular regurgitation. Great Vessels The aortic root is normal in size. The ascending aorta is mildly dilated. Aortic arch is normal in ca liber. IVC is normal in size and collapses >50% with inspiration. Pericardium There is no pericardial effusion. 2D Dimensions IVSD d PLAX 1.02 cm F: 0.6-1.0 LV Vol A2C d MOD 102.6 mL LVPW d PLAX 1.03 cm F: 0.6 - 1.0 LV Vol A4C d MOD 105.3 mL LVID d PLAX 4.69 cm F: 3.8 - 5.2 LA vol/ BSA A2C s A-L 17.3 mL/m2 LVDs 3.60 cm F: 2.2 - 3.5 LA vol/ BSA A4C s A-L 20.2 mL/m2 Ao Root d 2.97 cm F: 2.7 - 3.3 LA Vol/ BSA Biplane s A-L 20.2 mL/m2 Ao Asc Diam d 3.52 cm F: 2.3 - 3.1 LA Area A4C s MOD 13.34 cm2 LV EF Teichholz 45.4 % LA Area A2C s MOD 11.39 cm2 LVEF (Hall's) 51.28 % F: 54 - 74 LV EF A4C MOD 55.1 % LV Volume 83.99 mL F: 46 - 106 LV EF A2C MOD 51.6 % LV Volume Index 50.29 mL/m2 F: 29 - 61 LV EF Biplane MOD 51.3 % LV Vol Biplane MOD 105.1 mL SV 53.89 mL FS 22.50 % SV Index 32.26 mL/m2 M-Mode TAPSE 2.48 cm (M/F) >1.7 LV Diastology MV E' medial 0.073 (>0.07 m/s) E/A Ratio 0.9 LV E/e MED 11.70 (<14) MV E Vmax 0.85 (0.4-1.3 m/s) MV E' lateral 0.074 (>0.1 m/s) MV A Vmax 1.00 (0.4-1.3 m/s) LV E/e LAT 11.45 (<14) MV E/A Ratio 0.82 MV E/E' medial 11.74 MV E/E' lateral 11.48 Aortic Valve LVOT Area 2.90 cm2 AoV Area Vmax 2.52 cm2 LVOT Vmax 1.13 m/s AoV Area/ BSA (Vmax) 1.51 cm2/m2 LVOT Mean Americo. 0.78 m/s MIRIAN Mean Americo. 2.36 cm2 LVOT Peak Grad 5.1 mmHg MIRIAN Mean Americo. Index 1.41 cm2/m2 LVOT Mean Grad 2.8 mmHg LVOT VTI 0.240 m LVOT Diam s 1.90 cm AoV Vmax 1.30 m/s Velocity Ratio 0.86 AoV Mean Americo. 0.96 m/s AoV Peak Grad 6.8 mmHg LVOT SV 69.60 mL AoV Mean Grad 4.0 mmHg AoV VTI 0.291 m AoV Area VTI 2.39 cm2 AoV Area/ BSA (VTI) 1.43 cm/m2 Mitral Valve MV DT 258 (160-240 msec) MV PHT 75 msec MV Area PHT 2.94 cm2 Pulmonary Valve PV Vmax 0.75 (0.5-1.5 m/s) RVOT Peak Gr. 1.58 mmHg PV Peak Grad 2.3 mmHg RVOT Mean Gr. 1.05 mmHg PV Mean Grad 1.5 mmHg RVOT VTI 0.162 m PV VTI 0.174 m RVOT Vmax 0.63 m/s Tricuspid Valve TR Peak Grad 24.8 mmHg TR Vmax 2.49 m/s RA Pressure 3.00 mmHg RVSP (TR) 27.9 mmHg
[2021-07-20] MEDS: nitroGLYcerin in D5W 50 MG/250 ML BTL IV (13:27)
[2021-07-20 13:37] LABS: COVID-19 PCR Negative (Negative)
--- NOTE | 2021-07-20 13:45 | RT.EKG_ITS ---
APPROVED REPORT Exam: Resting ECG Reason for Exam: Chest Pain, NSTEMI Patient Location: E HR:71 bpm ECG Measurements Heart Rate 71 AXIS ND 182 P 62 QRSd 110 QRS -46 QT 452 T 119 QTc 491 Conclusion Sinus rhythm...normal P axis, V-rate 60- 99 LAD, consider left anterior fascicular block...axis(240,-40), S>R II III aVF. Sinus. T wave inversion in I and aVL, V5. No STEMI. I have reviewed and interpreted ECG and agree with software generated interpretation.
[2021-07-20] MEDS: Normal Saline 1,000 ML 1000 ML IV (14:00)
[2021-07-20 14:08] LABS: Troponin I 1120 ng/L (<or=60)
[2021-07-20 16:59] LABS: PTT Activated 27.2 sec (21.0-27.5)
[2021-07-20 17:06] LABS: Troponin I 2291 ng/L (<or=60)
--- NOTE | 2021-07-20 17:33 | W.PM.HP.N ---
Date of service: 07/20/21 Time of Service: 18:53 Assessment and Plan Assessment and plan (1) Non-ST elevation myocardial infarction (NSTEMI): Status: Acute Assessment and plan: [facility] plans transfer in AM to their facility. ICU admission with telemetry. Cont Heparin and Nitro drips. Troponin trend: 324 > 775 > 1120 > 2291> pending If has recurrent CP, obtain EKG and contact [facility]. Cont daily ASA, Plavix. (2) Essential hypertension: Status: Acute Assessment and plan: Cont Amlodipine. History of Present Illness History of Present Illness Chief Complaint: Chest pain Narrative: This is an 85 yo female with a PMH of HTN. She presented with concerns about CP under the left breast that radiated to the left arm. The pain began at 3 AM. Pain described as mild. Not sharp. No shortness of air, diaphoresis, palpitations, nausea. No fever/chills. She proceeded to an appt at the [facility] for evaluation and then was sent to the ED from there. Initial vitals: Temperature ?36.6 C ?07/20/21 10:51 Pulse ?77 ?07/20/21 10:51 Respiratory Rate ?18 ?07/20/21 10:51 Blood Pressure ?179/89 H ?07/20/21 10:51 Pulse Oximetry ?96 ?07/20/21 10:51 She was given an ASA. EKG showed ST depression in the lateral leads and T wave inversion in 1 and AvL Troponin 324. [facility] contacted by ED provider. Symone BARNETT spoke with and she consulted with Dr Collado, attending cardiology physician. Recommendation made for nitroglycerine and heparin drips as well as a loading dose of plavix. She did endorse a 10/10 episode of CP in the ED and was given a SL nitro that resolved the pain. [facility] plans to transfer to their facility in the AM; accepting physician Dr Daugherty. Planning a possible cardiac cath. Review of Systems All systems reviewed & are unremarkable except as noted in HPI and below PFSH All Active Problems (Updated 07/20/21 @ 19:05 by Savage Muhammad MD) Essential hypertension (Acute) Non-ST elevation myocardial infarction (NSTEMI) (Acute) Social History Smoking risk assessment performed?: No Alcohol Intake: current Alcohol Intake frequency: 0-2 drinks per day Alcohol type: wine Drug use: Never Details: drinks a glass of wine each day Do you feel safe at home: Yes Do you feel safe in your relationship?: Yes Meds Allergies and Home Medications Allergies Allergy/AdvReac Type Severity Reaction Status Date / Time No Known Allergies Allergy Unverified 03/31/18 08:30 Home Medications Medication Instructions Recorded Confirmed Type amlodipine 5 mg tablet (Norvasc) 5 mg PO DAILY 07/20/21 07/20/21 History Exam Narrative Exam Narrative: Sitting up in bed. Two daughters are present. Const General: cooperative and no acute distress Nutritional Appearance: average body habitus Orientation: alert and oriented x3 Eyes General: appearance normal, both eyes and all related structures Sclera: sclerae normal Neck Neck: full ROM and no JVD Resp Effort & Inspection: normal respiratory effort Auscultation: clear to auscultation bilaterally Cardio Rate: regular rate Rhythm: regular rhythm Heart Sounds: S1 normal and S2 normal GI Palpation: soft and nontender Auscultation: normal bowel sounds Skin General skin exam: no rashes or lesions noted Neuro General: no focal motor deficits Cognition: normal cognition Speech: speech normal Extrem General: no pedal edema and no calf tenderness Psych Appearance: grossly normal Mental Status: mental status grossly normal Speech and Movement: speech and movement normal Affect: normal affect Results Labs Result diagrams: 07/20/21 11:00 07/20/21 11:00 Labs: Laboratory Results - last 24 hr 07/20/21 07/20/21 07/20/21 11:00 11:00 12:00 WBC 8.41 RBC 5.15 Hgb 15.9 H Hct 46.9 H MCV 91.1 MCH 30.9 MCHC 33.9 RDW 13.0 Plt Count 239 MPV 11.3 H Immature Gran % 0.2 Neutrophils % 76.6 Lymphocytes % 15.7 Monocytes % 5.9 Eosinophils % 1.2 Basophils % 0.4 Nucleated RBC % 0 Absolute Neutrophils 6.44 Absolute Lymphocytes 1.32 Absolute Monocytes 0.50 Absolute Eosinophils 0.10 Absolute Basophils 0.03 PT INR APTT Sodium 138 Potassium 4.1 Chloride 103 Carbon Dioxide 23.7 Anion Gap 11.3 H BUN 12 Creatinine 0.5 L Estimated GFR/1.73 m2 >= 60.00 Glucose 116 H Calcium 9.1 Magnesium 2.3 Total Bilirubin 0.7 AST 31 ALT 22 Alkaline Phosphatase 107 Troponin I 324 H* Cancelled Total Protein 7.6 Albumin 3.9 COVID-19 Source SARS-CoV-2 (PCR) 07/20/21 07/20/21 07/20/21 12:00 12:30 12:30 WBC RBC Hgb Hct MCV MCH MCHC RDW Plt Count MPV Immature Gran % Neutrophils % Lymphocytes % Monocytes % Eosinophils % Basophils % Nucleated RBC % Absolute Neutrophils Absolute Lymphocytes Absolute Monocytes Absolute Eosinophils Absolute Basophils PT Cancelled 11.1 H INR Cancelled 1.1 APTT Cancelled > 155.1 H* Sodium Potassium Chloride Carbon Dioxide Anion Gap BUN Creatinine Estimated GFR/1.73 m2 Glucose Calcium Magnesium Total Bilirubin AST ALT Alkaline Phosphatase Troponin I 775 H* Total Protein Albumin COVID-19 Source SARS-CoV-2 (PCR) 07/20/21 07/20/21 07/20/21 12:45 13:45 16:40 WBC RBC Hgb Hct MCV MCH MCHC RDW Plt Count MPV Immature Gran % Neutrophils % Lymphocytes % Monocytes % Eosinophils % Basophils % Nucleated RBC % Absolute Neutrophils Absolute Lymphocytes Absolute Monocytes Absolute Eosinophils Absolute Basophils PT INR APTT Sodium Potassium Chloride Carbon Dioxide Anion Gap BUN Creatinine Estimated GFR/1.73 m2 Glucose Calcium Magnesium Total Bilirubin AST ALT Alkaline Phosphatase Troponin I 1120 H* 2291 H* Total Protein Albumin COVID-19 Source Nasal/Nares SARS-CoV-2 (PCR) Negative 07/20/21 07/20/21 16:40 17:30 WBC RBC Hgb Hct MCV MCH MCHC RDW Plt Count MPV Immature Gran % Neutrophils % Lymphocytes % Monocytes % Eosinophils % Basophils % Nucleated RBC % Absolute Neutrophils Absolute Lymphocytes Absolute Monocytes Absolute Eosinophils Absolute Basophils PT INR APTT 27.2 D Sodium Potassium Chloride Carbon Dioxide Anion Gap BUN Creatinine Estimated GFR/1.73 m2 Glucose Calcium Magnesium Total Bilirubin AST ALT Alkaline Phosphatase Troponin I Cancelled Total Protein Albumin COVID-19 Source SARS-CoV-2 (PCR) Last Vital Signs Temp 35.7 C L 07/20/21 16:05 Pulse 71 07/20/21 16:05 Resp 15 07/20/21 16:05 BP 117/92 H 07/20/21 16:05 Pulse Ox 96 07/20/21 16:05
[2021-07-20] MEDS: Metoprolol 12.5 MG TAB PO (17:36)
[2021-07-20 19:28] LABS: Troponin I 3496 ng/L (<or=60)
[2021-07-20] MEDS: Famotidine 20 MG TAB PO (20:48)
--- NOTE | 2021-07-20 21:47 | NUR.NOTE ---
Nursing Note: Pt's daughter Eliane Rollins called and enquired about her mother, while [facility] Informed Ms Del Rio that pt is being shifted to [facility]. Pt aware that her family is informed about the transfer to [facility].
== END 2021-07-20 21:15 | disposition short-term general hospital (02) | DRG 282 ==
LOC: ER 14:14 → ICU 17:46
PROVIDERS: Admitting Provider Family Medicine; Emergency Provider Registered Nurse Emergency; PCP Nurse Practitioner Family; Visit Provider Family Medicine
DX: I21.4 Non-ST elevation (NSTEMI) myocardial infarction (principal); I10 Essential (primary) hypertension; E78.00 Pure hypercholesterolemia, unspecified
CPT/HCPCS: 36415; 80053; 87635; 93005; 93306; 96361; 96365; 96366; 96368; 96375; 96376; 99285; 71046; 83735; 84484; 85025; 85610; 85730; 93010; 99223; J2270; J3490

== ENCOUNTER 2021-08-04 11:49 | Observation (INO) | payer MEDICARE, BC, SELFPAY ==
[2021-08-04] VITALS (9 sets, daily range): BP systolic 102–144; BP diastolic 54–81; PULSE 63–74; RESP 14–19; TEMP 36.6–37; O2SAT 95–100
--- NOTE | 2021-08-04 11:45 | RT.EKG_ITS ---
APPROVED REPORT Exam: Resting ECG Reason for Exam: chest pain, recent stents Patient Location: E HR:74 bpm ECG Measurements Heart Rate 74 AXIS IL 182 P 49 QRSd 94 QRS -32 QT 455 T 91 QTc 505 Conclusion Sinus rhythm...normal P axis, V-rate 60- 99 Left axis deviation...QRS axis (-30,-90) Posterior infarct, old...prom R T, V1-V3 or Q >40mS, V7-V9 Nonspecific T abnormalities, lateral leads...T <-0.10mV, I aVL V5 V6 Prolonged QT interval...QTc >500mS sinus rhythm, left axis, ST depression V5, T wave invertion V6
--- NOTE | 2021-08-04 12:15 | DI.RAD_ITS ---
Exam(s) XR CHEST 2V PA LATERAL EXAM: XR CHEST 2V PA LATERAL CLINICAL HISTORY: NSTEMI last week, L arm pain TECHNIQUE: 2D digital imaging was performed of the chest. To images were obtained. PA and lateral views were obtained. COMPARISON: CR XR CHEST 2V PA LATERAL from 07/20/2021 FINDINGS: MEDIASTINUM: Normal. HEART: Normal. PULMONARY VASCULATURE: Normal. LUNGS: Clear. PLEURAL SPACE: No pleural effusion or pneumothorax. BONE:Within normal limits for the patient's age. OTHER FINDINGS:Normal. IMPRESSION: No acute pulmonary findings. DATA REPOSITORY: RADIATION DOSE DELIVERED:
--- NOTE | 2021-08-04 12:37 | ED.GENADUL_ITS ---
Discharge Plan Disposition Patient Disposition: [facility] INPATIENT Condition: Stable Discharge Details Chief Complaint: Chest Pain Clinical Impression: Elevated troponin, Arm pain, left Primary Care Provider: Elyssa Mi ED Provider: Dylan Peterson Home Meds and New Rx's Prescriptions: No Action metoprolol succinate 50 mg tablet extended release 24 hr 50 mg PO DAILY 0RF clopidogrel 75 mg tablet 75 mg PO DAILY 0RF aspirin 81 mg tablet,delayed release (DR/EC) 81 mg PO DAILY 0RF nitroglycerin 0.4 mg tablet, sublingual 0.4 mg sublingual Q5 MIN PRN X3 PRN0RF rosuvastatin 20 mg tablet 20 mg PO HS 0RF amlodipine [Norvasc] 5 mg tablet 5 mg PO DAILY 0RF Label Comments: Take 1 tablet by mouth once a day Medical Decision Making This is an 85 year old female, past medical history of hypertension, recent NSTEMI with 4 stents placed at [facility]. She reports that they were going to place 3 more stents and she has appointment with cardiology on the . Today she developed left upper arm pain and/or pressure at rest, initially told me for a fleeting second it radiated to the chest and then later told me she had no chest pain or sensation whatsoever. She took 2 nitro prior to coming to the ER and upon presentation asymptomatic clinically she appears well, nontoxic and is hemodynamically stable. Plan is to give a single full dose aspirin and initiate cardiac work-up. Patient does admit that she is forgetful at times but she tells me she is taking all of her medications as directed and her son tells me that this is true, she has a pillbox with all of her pills ready for the day. Initial laboratory revealed a troponin of 335. The EKG was faxed to [facility] and I requested a consult, I was able to speak with cardiology [employer] Yelena Bradshaw at 1410. Patient remained hemodynamic stable and asymptomatic. It is difficult to say whether the troponin is residual from her recent NSTEMI or if in fact it is trending upward. She recommends repeating the troponin and then contacting cardiology once again. Patient remains asymptomatic and hemodynamically stable. Delta troponin is 293. I was again able to speak with SHARI Bradshaw at 1622. She reviewed the case with the division head as well. Given she is asymptomatic, troponin is trending downward, they do not feel as though emergent transfer to their facility for intervention is necessary. She has known vessel disease, pain was alleviated with nitro, and she is scheduled to be seen by cardiology on 17 August. They believe that admission to our facility for observation and serial troponin is reasonable, if she decompensates then they could reevaluate the overall situation. This plan was discussed with patient and family who are agreeable. I then discussed admission with our hospitalist team, Dr. Muhammad, who is agreeable to admission and will write admission orders This documentation was generated using [employer] system, please disregard any oddities of phrase or misspellings. Medical Records Medical records reviewed: Yes I reviewed the patient's medical records. Imaging Data Radiologic Study: Attestation: I personally reviewed and interpreted this imaging study as follows: Imaging: X-Ray Radiologist's impression: Exam(s) XR CHEST 2V PA LATERAL EXAM: XR CHEST 2V PA LATERAL CLINICAL HISTORY: NSTEMI last week, L arm pain TECHNIQUE: 2D digital imaging was performed of the chest. To images were obtained. PA and lateral views were obtained. COMPARISON: CR XR CHEST 2V PA LATERAL from 07/20/2021 FINDINGS: MEDIASTINUM: Normal. HEART: Normal. PULMONARY VASCULATURE: Normal. LUNGS: Clear. PLEURAL SPACE: No pleural effusion or pneumothorax. BONE:Within normal limits for the patient's age. OTHER FINDINGS:Normal. IMPRESSION: No acute pulmonary findings. Lab Data Lab results reviewed: Yes I reviewed the patient's lab results. Labs: Laboratory Tests Range/Units 08/04/21 08/04/21 08/04/21 12:15 12:15 15:00 WBC (4.4-10.8) 10^3/uL 10.13 RBC (3.93-5.22) 10^6/uL 4.68 Hgb (11.2-15.7) g/dL 14.5 Hct (36.0-46.0) % 43.2 MCV (80-95) fL 92.3 MCH (27.0-33.0) pg 31.0 MCHC (32.0-36.0) % 33.6 RDW (11.7-14.6) % 12.3 Plt Count (130-400) 10^3/uL 458 H D MPV (8.0-11.0) fL 9.5 Immature Gran % 0.4 Neutrophils % 74.5 Lymphocytes % 13.4 Monocytes % 8.3 Eosinophils % 2.9 Basophils % 0.5 Nucleated RBC % (0.0-0.3) % 0.0 Absolute Neutrophils (1.2-6.7) 10^3/uL 7.55 H Absolute Lymphocytes (1.2-3.4) 10^3/uL 1.36 Absolute Monocytes (0.1-0.8) 10^3/uL 0.84 H Absolute Eosinophils (0.0-0.7) 10^3/uL 0.29 Absolute Basophils (0.0-0.2) 10^3/uL 0.05 Sodium (136-145) mmol/L 141 Potassium (3.5-5.1) mmol/L 3.9 Chloride (98-107) mmol/L 105 Carbon Dioxide (21.0-32.0) mmol/L 28.0 Anion Gap (3-11) mmol/L 8.0 BUN (7-18) mg/dL 16 Creatinine (0.55-1.02) mg/dL 0.7 Estimated GFR/1.73 m2 (mL/min/1.73m2) >= 60.00 Glucose (74-106) mg/dL 101 Calcium (8.5-10.1) mg/dL 9.0 Magnesium (1.8-2.4) mg/dL 2.3 Total Bilirubin (0.2-1.0) mg/dL 0.4 AST (15-37) U/L 23 ALT (14-59) U/L 31 Alkaline Phosphatase (46-116) U/L 117 H Troponin I (<or=60) ng/L 335 H* 293 H* Total Protein (6.4-8.2) g/dL 7.4 Albumin (3.4-5.0) g/dL 3.3 L ECG Data Attestation: I personally reviewed and interpreted this ECG (s) as follows: Interpretation: Please see report by Dr. Carmona. Sinus Rhythm, Vent rate of 74, Nonspecific T wave abnormalities, no STEMI HPI General Mode of arrival: ambulatory . Date/Time Provider Initiated Documentation: 08/04/21 11:52 . Limitations to Documentation: no limitations . Information obtained by: patient and family . History of Present Illness described as moderate, with intensity rated at 4. Quality is described as aching, and is localized to the left and upper extremity. Patient reports no radiation. Patient started experiencing this hour(s) (1) and it has been now resolved. improves with other things that improve symptom(s), (Nitro x 2) No exacerbating factors reported . Patient notes no other symptoms.. Patient did receive the following treatments prior to arrival, other (Nitro x 2) Related Data Home Medications Medication Instructions Recorded Confirmed amlodipine 5 mg tablet (Norvasc) 5 mg PO DAILY 07/20/21 08/04/21 aspirin 81 mg tablet,delayed 81 mg PO DAILY 08/04/21 08/04/21 release clopidogrel 75 mg tablet 75 mg PO DAILY 08/04/21 08/04/21 metoprolol succinate 50 mg 50 mg PO DAILY 08/04/21 08/04/21 tablet,extended release 24 hr nitroglycerin 0.4 mg sublingual 0.4 mg SUBLINGUAL Q5 MIN PRN X3 PRN 08/04/21 08/04/21 tablet rosuvastatin 20 mg tablet 20 mg PO HS 08/04/21 08/04/21 Allergies Allergy/AdvReac Type Severity Reaction Status Date / Time No Known Allergies Allergy Unverified 08/04/21 12:23 General Stated Complaint: Chest Pain NADINE: 2 Review of Systems Constitutional Constitutional: Denies fatigue, Denies fever(s), Denies headache(s) and Denies weakness ENT Ears, Nose, Mouth, and Throat: Denies headache(s) and Denies neck pain Cardiovascular Cardiovascular: Denies chest pain and Denies dyspnea Respiratory Respiratory: Denies cough and Denies dyspnea Gastrointestinal Gastrointestinal: Denies abdominal pain, Denies nausea and Denies vomiting Musculoskeletal Musculoskeletal: Denies back pain and Denies neck pain Integumentary/Breasts Skin/Breast: Denies rash Neurologic Neurologic: Denies headache(s) and Denies weakness Endocrine Endocrine: Denies fatigue Hematologic/Lymphatic Hematologic/Lymphatic: Reports easy bruising PFSH All Active Problems (Updated 08/04/21 @ 16:56 by ERICKA Wheeler) Elevated troponin (Acute) Arm pain, left (Acute) Essential hypertension (Acute) Non-ST elevation myocardial infarction (NSTEMI) (Acute) Social History Smoking/Tobacco Use Status: Former Tobacco Use Smoking risk assessment performed?: Yes Alcohol Intake: current Alcohol Intake frequency: 0-2 drinks per day Alcohol type: wine Drug use: Never Substance use type: does not use Details: drinks a glass of wine each day Do you feel safe at home: Yes Do you feel safe in your relationship?: Yes Exam Const General: cooperative, healthy appearing, comfortable and no acute distress Orientation: alert and awake HENMT Head: normal to inspection, normocephalic and atraumatic Face and sinus: normal facial exam Mouth: moist mucous membranes Eyes General: appearance normal, both eyes and all related structures Conjunctivae: conjunctivae normal Neck Neck: normal visual inspection, full ROM, trachea midline and supple Chest Chest: normal palpation of entire chest wall Resp Effort & Inspection: normal respiratory effort and able to speak in complete sentences Auscultation: clear to auscultation bilaterally Cardio Rate: regular rate Rhythm: regular rhythm GI Palpation: soft, not firm, no guarding, no pulsatile masses and nontender Back/Spine/Pelvis Back: No back tenderness Skin General skin exam: no rashes or lesions noted Neuro General: patient alert, patient awake, moves all extremities and no focal motor deficits Cognition: normal cognition Speech: speech normal Gait: normal gait Motor: muscle tone normal throughout Sensory Exam: no sensory deficits noted Extrem General: normal to inspection, full ROM, capillary refill normal, no pedal edema and no calf tenderness Psych Appearance: grossly normal Mental Status: mental status grossly normal Course Vital Signs Vital signs: Vital Signs Temperature 36.7 C 08/04/21 12:01 Pulse 72 08/04/21 12:01 Respiratory Rate 18 08/04/21 12:01 Blood Pressure 144/64 H 08/04/21 12:01 Pulse Oximetry 100 08/04/21 12:01 Temperature 36.7 C 08/04/21 12:01 Temperature Source Skin 08/04/21 12:01 Pulse 72 08/04/21 12:01 Respiratory Rate 19 08/04/21 12:18 Respiratory Effort Non-Labored 08/04/21 12:18 Respiratory Depth Normal 08/04/21 12:18 Respiratory Pattern Normal 08/04/21 12:18 Blood Pressure 144/64 H 08/04/21 12:01 Blood Pressure Position Sitting 08/04/21 12:01 Pulse Oximetry 100 08/04/21 12:01 Oxygen Delivery Method Room Air 08/04/21 12:01 Oxygen Flow Rate 0 08/04/21 12:01 Pain Level 5 08/04/21 12:18 PAWSS Have you Been Recently Intoxicated or Drunk Within the Last 30 days?: No Have you Ever Experienced Previous Episodes of Alcohol Withdrawal?: No Have you ever Experienced Withdrawal Seizures?: No Have you ever Experienced Delirium Tremens(DT)s?: No Have you ever undergone Alcohol Rehabilitation Treatment (i.e, inpt ot outpatient treatment programs)?: No Have you ever Experienced Blackouts?: No Have you ever Combined Alcohol with other Downers within the last 90 days?: No Have you ever Combined Alcohol with any other Substance of Abuse during the last 90 days?: No Result: 0
[2021-08-04] MEDS: Aspirin 81 MG CHEW 324 MG CH (12:41)
[2021-08-04 12:42] LABS: Abs Immature Grans 0.04 10^3/uL (0.0-0.06); Absolute Basophil Count 0.05 10^3/uL (0.0-0.2); Absolute Eosinophil Count 0.29 10^3/uL (0.0-0.7); Absolute Lymphocyte Count 1.36 10^3/uL (1.2-3.4); Absolute Monocyte Count 0.84 10^3/uL (0.1-0.8); Absolute Neutrophil Count 7.55 10^3/uL (1.2-6.7); Basophils % 0.5; Eosinophils % 2.9; HCT 43.2 % (36.0-46.0); HGB 14.5 g/dL (11.2-15.7); Immature Grans % 0.4; Lymphocytes % 13.4; MCHC 33.6 % (32.0-36.0); MCV 92.3 fL (80-95); MPV 9.5 fL (8.0-11.0); Monocytes % 8.3; Neutrophils % 74.5; Platelet Count 458 10^3/uL (130-400); RBC 4.68 10^6/uL (3.93-5.22); RDW 12.3 % (11.7-14.6); RDW-SD 41.8 fL; WBC 10.13 10^3/uL (4.4-10.8)
[2021-08-04 12:56] LABS: ALT 31 U/L (14-59); AST 23 U/L (15-37); Albumin 3.3 g/dL (3.4-5.0); Alkaline Phosphatase 117 U/L (46-116); BUN 16 mg/dL (7-18); Bilirubin, Total 0.4 mg/dL (0.2-1.0); CREATININE 0.7 mg/dL (0.55-1.02); Chloride 105 mmol/L (98-107); Glucose 101 mg/dL (74-106); Magnesium 2.3 mg/dL (1.8-2.4); Potassium 3.9 mmol/L (3.5-5.1); Sodium 141 mmol/L (136-145); Total Protein 7.4 g/dL (6.4-8.2)
[2021-08-04 12:57] LABS: Troponin I 335 ng/L (<or=60)
[2021-08-04 15:58] LABS: Troponin I 293 ng/L (<or=60)
[2021-08-04 17:11] LABS: Source Nasal/Nares
[2021-08-04 17:50] LABS: COVID-19 PCR Negative (Negative)
[2021-08-04 18:51] LABS: Troponin I 290 ng/L (<or=60)
--- NOTE | 2021-08-04 19:20 | W.PM.HP.N ---
Date of service: 08/04/21 Time of Service: 19:20 Assessment and Plan Assessment and plan (1) Essential hypertension: Status: Acute Assessment and plan: Cont amlodipine, metoprolol and monitor (2) CAD (coronary artery disease): Status: Chronic Assessment and plan: s/p NSTEMI with placement of 4 stents. Cont aspirin 81mg daily, clopidogrel 75mg daily, metoprolol succinate 50mg daily and rosuvastatin 20mg nightly. Third troponin 290; troponin level declining. Monitor on telemetry. She has need for 3 more stents; cardiology appt on 08/17. (3) Elevated troponin: Status: Acute Assessment and plan: Still elevated from previous NSTEMI vs new elevation. Appears to have peaked and trending downward. History of Present Illness History of Present Illness Chief Complaint: Left upper arm pain. Narrative: This is an 85 year old female with a past medical history of hypertension, recent NSTEMI with 4 stents placed at [facility].? She reports that the placement of 3 more stents if planned for 08/17. She presented with c/o left upper arm pain and/or pressure at rest, Initially she stated to the ED physician that for a fleeting second the pain radiated to the chest and then later stated she had no chest pain or sensation whatsoever.? She took 2 nitro prior to coming to the ER and upon presentation asymptomatic clinically she appeared well, nontoxic and was hemodynamically stable. She received a single full dose aspirin.? ED w/u: troponin of 335.? The EKG was faxed to [facility] and cardiology consulted. Yelena Bradshaw WIND TURBINE ERECTOR spoke with ED provider as well as a motion graphics artist. The recommendation was overnight observation and to trend troponin levels. The second troponin was 290. Review of Systems All systems reviewed & are unremarkable except as noted in HPI and below PFSH All Active Problems (Updated 08/04/21 @ 21:04 by Savage Muhammad MD) CAD (coronary artery disease) (Chronic) Elevated troponin (Acute) Arm pain, left (Acute) Essential hypertension (Acute) Non-ST elevation myocardial infarction (NSTEMI) (Acute) Social History Smoking/Tobacco Use Status: Former Tobacco Use Smoking risk assessment performed?: Yes Alcohol Intake: current Alcohol Intake frequency: 0-2 drinks per day Alcohol type: wine Drug use: Never Substance use type: does not use Details: drinks a glass of wine each day Do you feel safe at home: Yes Do you feel safe in your relationship?: Yes Meds Allergies and Home Medications Allergies Allergy/AdvReac Type Severity Reaction Status Date / Time No Known Allergies Allergy Unverified 08/04/21 12:23 Home Medications Medication Instructions Recorded Confirmed Type amlodipine 5 mg tablet (Norvasc) 5 mg PO DAILY 07/20/21 08/04/21 History aspirin 81 mg tablet,delayed 81 mg PO DAILY 08/04/21 08/04/21 History release clopidogrel 75 mg tablet 75 mg PO DAILY 08/04/21 08/04/21 History metoprolol succinate 50 mg 50 mg PO DAILY 08/04/21 08/04/21 History tablet,extended release 24 hr nitroglycerin 0.4 mg sublingual 0.4 mg SUBLINGUAL Q5 MIN PRN X3 PRN 08/04/21 08/04/21 History tablet rosuvastatin 20 mg tablet 20 mg PO HS 08/04/21 08/04/21 History Exam Narrative Exam Narrative: Pleasant elderly female. Sitting upright in bed. Const General: cooperative and no acute distress Nutritional Appearance: average body habitus Orientation: alert and oriented x3 Eyes General: appearance normal, both eyes and all related structures Sclera: sclerae normal Neck Neck: normal visual inspection and no JVD Resp Effort & Inspection: normal respiratory effort Auscultation: clear to auscultation bilaterally Cardio Rate: regular rate Rhythm: regular rhythm Heart Sounds: S1 normal and S2 normal GI Palpation: soft and nontender Neuro General: moves all extremities Cranial Nerves: facial strength normal Extrem General: no pedal edema and no calf tenderness Results Labs Result diagrams: 08/04/21 12:15 08/04/21 12:15 Labs: Laboratory Results - last 24 hr 08/04/21 08/04/21 08/04/21 12:15 12:15 15:00 WBC 10.13 RBC 4.68 Hgb 14.5 Hct 43.2 MCV 92.3 MCH 31.0 MCHC 33.6 RDW 12.3 Plt Count 458 H D MPV 9.5 Immature Gran % 0.4 Neutrophils % 74.5 Lymphocytes % 13.4 Monocytes % 8.3 Eosinophils % 2.9 Basophils % 0.5 Nucleated RBC % 0.0 Absolute Neutrophils 7.55 H Absolute Lymphocytes 1.36 Absolute Monocytes 0.84 H Absolute Eosinophils 0.29 Absolute Basophils 0.05 Sodium 141 Potassium 3.9 Chloride 105 Carbon Dioxide 28.0 Anion Gap 8.0 BUN 16 Creatinine 0.7 Estimated GFR/1.73 m2 >= 60.00 Glucose 101 Calcium 9.0 Magnesium 2.3 Total Bilirubin 0.4 AST 23 ALT 31 Alkaline Phosphatase 117 H Troponin I 335 H* 293 H* Total Protein 7.4 Albumin 3.3 L COVID-19 Source SARS-CoV-2 (PCR) 08/04/21 08/04/21 16:53 18:20 WBC RBC Hgb Hct MCV MCH MCHC RDW Plt Count MPV Immature Gran % Neutrophils % Lymphocytes % Monocytes % Eosinophils % Basophils % Nucleated RBC % Absolute Neutrophils Absolute Lymphocytes Absolute Monocytes Absolute Eosinophils Absolute Basophils Sodium Potassium Chloride Carbon Dioxide Anion Gap BUN Creatinine Estimated GFR/1.73 m2 Glucose Calcium Magnesium Total Bilirubin AST ALT Alkaline Phosphatase Troponin I 290 H* Total Protein Albumin COVID-19 Source Nasal/Nares SARS-CoV-2 (PCR) Negative Last Vital Signs Temp 36.8 C 08/04/21 17:52 Pulse 73 08/04/21 17:52 Resp 14 08/04/21 17:52 BP 127/81 08/04/21 17:52 Pulse Ox 96 08/04/21 17:52 PAWSS Have you Been Recently Intoxicated or Drunk Within the Last 30 days?: No Have you Ever Experienced Previous Episodes of Alcohol Withdrawal?: No Have you ever Experienced Withdrawal Seizures?: No Have you ever Experienced Delirium Tremens(DT)s?: No Have you ever undergone Alcohol Rehabilitation Treatment (i.e, inpt ot outpatient treatment programs)?: No Have you ever Experienced Blackouts?: No Have you ever Combined Alcohol with other Downers within the last 90 days?: No Have you ever Combined Alcohol with any other Substance of Abuse during the last 90 days?: No Result: 0
[2021-08-04] MEDS: Rosuvastatin 10 MG TAB 20 MG PO (19:27)
[2021-08-05 04:00] VITALS: PULSE 56
[2021-08-05 05:11] VITALS: BP 120/68; PULSE 70; RESP 18; TEMP 36; O2SAT 95
[2021-08-05 07:16] VITALS: BP 126/72; PULSE 60; RESP 17; TEMP 36.7; O2SAT 94
[2021-08-05 07:22] VITALS: PULSE 64
[2021-08-05] MEDS: Clopidogrel 75 MG TAB PO (08:40)
[2021-08-05] MEDS: Metoprolol CR 50 MG TABCR PO (08:41)
[2021-08-05] MEDS: Aspirin E.C. 81 MG TABEC PO (08:41)
[2021-08-05] MEDS: amLODIPine 5 MG TAB PO (08:41)
[2021-08-05] MEDS: Normal Saline Flush 10 ML SYR IVP (10:38)
[2021-08-05 11:23] VITALS: BP 117/70; PULSE 66; RESP 17; TEMP 36.2; O2SAT 95
--- NOTE | 2021-08-05 14:02 | W.PM.DS.N ---
Date of service: 08/05/21 Time of Service: 14:02 DS: Diagnosis Discharge Diagnosis (1) Essential hypertension: Status: Acute (2) CAD (coronary artery disease): Status: Chronic (3) Elevated troponin: Status: Acute Discharge Plan Disposition Patient Disposition: HOME Condition: Improving Discharge Details Reason For Visit: CHEST PAIN, CORONARY ARTERY DISEASE Admit Date/Time: 08/04/21 16:33 Admit Provider: Savage Muhammad Attending Provider: Savage Muhammad Primary Care Provider: Elyssa Mi [facility] Course Hospital Course: This is an 85 year old female with a past medical history of hypertension, recent NSTEMI with 4 stents placed at [facility].? She reports that the placement of 3 more stents if planned for 08/17. She presented with c/o left upper arm pain and/or pressure at rest, Initially she stated to the ED physician that for a fleeting second the pain radiated to the chest and then later stated she had no chest pain or sensation whatsoever.? She took 2 nitro prior to coming to the ER and upon presentation asymptomatic clinically she appeared well, nontoxic and was hemodynamically stable. She received a? single full dose aspirin.? ED w/u:? troponin of 335.? The EKG was faxed to [facility] and cardiology consulted.? Yelena Bradshaw DRY WALL SPRAYER spoke with ED provider as well as a cardiology specialist.? The recommendation was overnight observation and to trend troponin levels. The second troponin was 293. Third troponin remained unchanged at 290 ng/L. Patient had no further arm pain nor chest pain nor dyspnea. Patient reluctantly agreed to remain hospitalized overnight. She had no arrhythmias overnight and no further symptoms. She desired to return home and was dc home on a new Rx for Imdur 30 mg daily. She and her significant other were advised about the signs and symptoms of an CT and to call 911 if she has recurrent angina that does quickly resolve w/ NTG. Home Meds and New Rx's Prescriptions: New isosorbide mononitrate 30 mg tablet extended release 24 hr 30 mg PO DAILY Qty: 30 0RF Continued metoprolol succinate 50 mg tablet extended release 24 hr 50 mg PO DAILY 0RF clopidogrel 75 mg tablet 75 mg PO DAILY 0RF aspirin 81 mg tablet,delayed release (DR/EC) 81 mg PO DAILY 0RF nitroglycerin 0.4 mg tablet, sublingual 0.4 mg sublingual Q5 MIN PRN X3 PRN0RF rosuvastatin 20 mg tablet 20 mg PO HS 0RF amlodipine [Norvasc] 5 mg tablet 5 mg PO DAILY 0RF Label Comments: Take 1 tablet by mouth once a day Discharge Instructions Instructions: Heart Attack (DC), Coronary Artery Disease (DC), Chest Pain (DC), Heart Healthy Diet (DC), Acute Coronary Syndrome (DC) Additional Instructions: You have had symptoms of unstable angina and your troponin I level was mildly elevated but your EKG did not demonstrate any new changes. [facility] cardiology was consulted by [facility] emergency room staff and [facility] advised overnight observation at [facility]. Your cardiac enzymes have remained stable and did not rise any further and repeat EKG's did not show any changes. At this point you have been free of any angina quality symptoms which in your case was manifested as left arm discomfort tightness. You should continue your current medications and a new anti-anginal medication was prescribed call isosorbide moninitrate (trade name Imdur). This is a long acting sustained release form of nitroglycerin. You should monitor your blood pressure twice a day to be sure that this new medication does not drop your blood pressure too low. If you have further angina symptoms, you should use your nitroglycerin tablets as previously prescribed. If your symptoms are not quickly resolved after one or two tablets then call 911. If your symptoms are associated w/ dizziness, shortness of breath or acute sweating or your symptoms are lasting more than a few minutes, call 911. Stand Alone Forms: Nursing Discharge Form Referrals: Elyssa Mi [Primary Care Provider] - (call office on Saturday for follow up appt) Activity:: Activity as Tolerated Equipment/Supplies:: No Equipment Needed Diet:: low fat Discharge Orders Discharge Orders: Discharge Order (Routine); Ordered 08/05/21 Ordered By: Dylan Barahona Discharge Data Discharge Date/Time-TO BE ENTERED AT DEPARTURE: 08/05/21 14:45 DS: Summary Time Spent with Patient providing and/or coordinating discharge services: Less than 30 minutes Specific discharge activities: discussion about signs/symptoms of CT and how to treat angina and advising on new meds Status at Discharge Functional status at discharge: independent ambulation Overall status at discharge: patient is back to baseline Mental Status: mental status grossly normal Speech and Movement: speech and movement normal Mood: congruent mood Affect: normal affect Exam Narrative Exam Narrative: Patient is already dressed and has her cardiac catheterization technologist off. She is ready to leave the hospital. She is in no acute discomfort. Lungs clear, heart is regular, she has no edema or JVD Psych Mental Status: mental status grossly normal Speech and Movement: speech and movement normal Mood: congruent mood Affect: normal affect DS: Data Vitals/I&O Vitals and I&O: Vital Signs Temperature 36.2 C L 08/05/21 11:23 Temperature Source Tympanic 08/05/21 11:23 Pulse 66 08/05/21 11:23 Pulse Rhythm Regular 08/05/21 10:43 Respiratory Rate 17 08/05/21 11:23 Respiratory Effort 08/05/21 10:43 Respiratory Depth Normal 08/05/21 10:43 Respiratory Pattern Normal 08/05/21 10:43 Blood Pressure 117/70 08/05/21 11:23 Blood Pressure Position Sitting 08/04/21 12:01 Pulse Oximetry 95 08/05/21 11:23 Oxygen Delivery Method Room Air 08/05/21 11:23 Oxygen Flow Rate 0 08/05/21 11:23 Pain Level 0 08/05/21 11:23 Intake & Output 08/04/21 08/05/21 08/05/21 23:59 11:59 23:59 Intake Total 360 / 540 180 / 540 Balance 360 / 540 180 / 540 Weight 62.596 kg 62.369 kg Intake: IV Oral 360 / 540 180 / 540 Other: Urine Appearance Clear Data Completed and Pending Labs on day of discharge: Labs from last 24 hours 08/04/21 08/04/21 08/04/21 18:20 16:53 15:00 Troponin I 290 H* 293 H* COVID-19 Source Nasal/Nares SARS-CoV-2 (PCR) Negative PFSH All Active Problems (Updated 08/06/21 @ 00:04 by JUAN DRIVER) CAD (coronary artery disease) (Chronic) Elevated troponin (Acute) Essential hypertension (Acute) Non-ST elevation myocardial infarction (NSTEMI) (Acute) Social History Smoking/Tobacco Use Status: Former Tobacco Use Smoking risk assessment performed?: Yes Alcohol Intake: current Alcohol Intake frequency: 0-2 drinks per day Alcohol type: wine Drug use: Never Substance use type: does not use Details: drinks a glass of wine each day Do you feel safe at home: Yes Do you feel safe in your relationship?: Yes
--- NOTE | 2021-08-05 14:26 | CMPROGNOTE_ITS ---
- If Service Date Differs Date of service: 08/05/21 Time of Service: 14:26 Care Management Progress Note Per MD, patient will follow up with [facility], as she had recent NSTEMI with 4 stents placed at [facility] and has need for 3 more stents; cardiology appt on 08/17.
--- NOTE | 2021-08-05 14:26 | PDOC.CMPRO ---
- If Service Date Differs Date of service: 08/05/21 Time of Service: 14:26 Care Management Progress Note Per MD, patient will follow up with [facility], as she had recent NSTEMI with 4 stents placed at [facility] and has need for 3 more stents; cardiology appt on 08/17.
== END 2021-08-05 14:45 | disposition home or self-care (01) ==
LOC: ER 17:40 → MS 08-05 14:02
PROVIDERS: Admitting Provider Family Medicine; Emergency Provider Physician Assistant; PCP Nurse Practitioner Family; Visit Provider Family Medicine
DX: R07.89 Other chest pain (principal); R74.8 Abnormal levels of other serum enzymes; I10 Essential (primary) hypertension; Z95.5 Presence of coronary angioplasty implant and graft; I25.2 Old myocardial infarction; M79.602 Pain in left arm; Z20.822 Contact with and (suspected) exposure to COVID-19
CPT/HCPCS: 36415; 80053; 87635; 93005; 99284; 99285; 71046; 83735; 84484; 85025; 93010; 99217; 99219; G0378

== ENCOUNTER 2021-08-29 19:36 | Outpatient (REF) | payer MEDICARE, BC, SELFPAY ==
[2021-08-29 14:30] LABS: Calculated LDL 119 mg/dL (<100); Cholesterol 188 mg/dL (<200); HDL Cholesterol 58 mg/dL (40-60); Triglyceride 55 mg/dL (<150)
== END 2021-08-29 19:37 | disposition home or self-care (01) ==
LOC: NCHCN 19:36
PROVIDERS: PCP Nurse Practitioner Family; Visit Provider Nurse Practitioner Family
DX: E78.5 Hyperlipidemia, unspecified (principal)
CPT/HCPCS: 80061

== ENCOUNTER 2021-09-07 09:42 | Outpatient (CLI) | payer MEDICARE, BC, SELFPAY ==
--- NOTE | 2021-09-07 09:30 | RT.EKG_ITS ---
APPROVED REPORT Exam: Resting ECG Reason for Exam: MS Patient Location: O HR:71 bpm ECG Measurements Heart Rate 71 AXIS ID 199 P 29 QRSd 107 QRS -42 QT 444 T 95 QTc 483 Conclusion Sinus rhythm...normal P axis, V-rate 50- 99 Left anterior fascicular block...axis(240,-40), init forces inf Posterior infarct, old...prom R T, V1-V3 or Q >40mS, V7-V9 Nonspecific repol abnormality, lateral leads...ST dep, T neg, I aVL V5 V6 No change compared to EKG at [facility] 08/17/2021
== END 2021-09-07 09:43 | disposition home or self-care (01) ==
LOC: DI.CARD 09:43
PROVIDERS: PCP Nurse Practitioner Family; Visit Provider Internal Medicine Cardiovascular Disease
DX: I21.4 Non-ST elevation (NSTEMI) myocardial infarction (principal); I25.10 Atherosclerotic heart disease of native coronary artery without angina pectoris
CPT/HCPCS: 93010

== ENCOUNTER → 2021-09-07 09:54 | Outpatient (BNVA) | payer MEDICARE, BC, SELFPAY | PROVIDERS: PCP Nurse Practitioner Family; Referring Provider Nurse Practitioner Family; Visit Provider Internal Medicine Cardiovascular Disease | DX: I25.2 Old myocardial infarction (principal); I25.10 Atherosclerotic heart disease of native coronary artery without angina pectoris; I10 Essential (primary) hypertension | CPT/HCPCS: 93005; 99203; 99214 ==

== ENCOUNTER 2021-10-02 09:00 | Outpatient (RCR) | payer MEDICARE, BC, SELFPAY | END 2021-10-19 23:59 | disposition home or self-care (01) | LOC: CR 09:00 | PROVIDERS: PCP Nurse Practitioner Family; Visit Provider Internal Medicine Cardiovascular Disease | DX: Z51.89 Encounter for other specified aftercare (principal); I25.2 Old myocardial infarction; Z95.5 Presence of coronary angioplasty implant and graft | CPT/HCPCS: S9472 ==

== ENCOUNTER 2021-11-17 13:00 | Outpatient (RCR) | payer MEDICARE, BC, SELFPAY | END 2021-11-19 23:59 | disposition home or self-care (01) | LOC: CR 13:00 | PROVIDERS: PCP Nurse Practitioner Family; Referring Provider Student in an Organized Health Care Education/Training Program; Visit Provider Internal Medicine Cardiovascular Disease | DX: Z51.89 Encounter for other specified aftercare (principal); I25.2 Old myocardial infarction; Z95.5 Presence of coronary angioplasty implant and graft | CPT/HCPCS: S9472 ==

== ENCOUNTER → 2021-12-04 10:33 | Outpatient (BNVA) | payer MEDICARE, BC, SELFPAY | PROVIDERS: PCP Nurse Practitioner Family; Referring Provider Nurse Practitioner Family; Visit Provider Internal Medicine Cardiovascular Disease | DX: F17.210 Nicotine dependence, cigarettes, uncomplicated (principal); I25.2 Old myocardial infarction; Z95.5 Presence of coronary angioplasty implant and graft; I25.10 Atherosclerotic heart disease of native coronary artery without angina pectoris; I10 Essential (primary) hypertension; E78.5 Hyperlipidemia, unspecified | CPT/HCPCS: 99213 ==

== ENCOUNTER → 2021-12-07 01:59 | Outpatient (CLI) | payer MEDICARE, BC, SELFPAY ==
--- NOTE | 2021-12-07 08:00 | DI.US_ITS ---
Exam(s) US AAA SCREENING EXAM: US AAA SCREENING CLINICAL HISTORY: ABD MASS, R19.00; MULTIPLE VESSEL CAD, I25.10; PERSISTENT LLQ PAIN FINDINGS: Abdominal Aorta: Proximal: 1.8 cm Mid: 2.0 cm Distal: 1.3 cm Iliacs: Right: 1 x 1 cm Left: 1 x 1 cm Moderate atherosclerotic disease is seen. IMPRESSION: No evidence of abdominal aortic aneurysm. DATA REPOSITORY:
--- NOTE | 2021-12-07 08:00 | DI.US_ITS ---
Exam(s) US SOFT TISS ABD WALL/LOW BACK EXAM: US SOFT TISS ABD WALL/LOW BACK CLINICAL HISTORY: ABD MASS, R19.0; EPIGASTRIC MASS. TECHNIQUE: Ultrasound was performed using standard protocol. CT CT CHEST W from 06/29/2019 FINDINGS: Sonographic assessment utilizing grayscale and color Doppler imaging was performed and targeted to th e area of clinical concern in the midline below the xiphoid. A fatty hernia is demonstrated measurin g 3.1 x 1 x 2.5 cm. The fascial defect measures 4 millimeters.. IMPRESSION: Fatty containing hernia corresponding to the palpable abnormality. DATA REPOSITORY:
== END ==
PROVIDERS: PCP Nurse Practitioner Family; Visit Provider Nurse Practitioner Family
DX: K46.9 Unspecified abdominal hernia without obstruction or gangrene (principal)
CPT/HCPCS: 76706; 76705

== ENCOUNTER 2021-12-08 13:45 | Outpatient (RCR) | payer MEDICARE, BC, SELFPAY | END 2021-12-20 23:59 | disposition home or self-care (01) | LOC: CR 13:45 | PROVIDERS: PCP Nurse Practitioner Family; Referring Provider Student in an Organized Health Care Education/Training Program; Visit Provider Internal Medicine Cardiovascular Disease | DX: Z51.89 Encounter for other specified aftercare (principal); I25.2 Old myocardial infarction; Z95.5 Presence of coronary angioplasty implant and graft | CPT/HCPCS: S9472 ==

== ENCOUNTER 2022-01-19 13:07 | Outpatient (RCR) | payer MEDICARE, BC, SELFPAY | END 2022-01-19 23:59 | disposition home or self-care (01) | LOC: CR 13:07 | PROVIDERS: PCP Nurse Practitioner Family; Referring Provider Student in an Organized Health Care Education/Training Program; Visit Provider Internal Medicine Cardiovascular Disease | DX: Z51.89 Encounter for other specified aftercare (principal); I25.2 Old myocardial infarction; Z95.5 Presence of coronary angioplasty implant and graft | CPT/HCPCS: S9472 ==

== ENCOUNTER 2022-02-12 13:21 | Outpatient (RCR) | payer MEDICARE, BC, SELFPAY | END 2022-02-19 23:59 | disposition home or self-care (01) | LOC: CR 13:21 | PROVIDERS: PCP Nurse Practitioner Family; Referring Provider Student in an Organized Health Care Education/Training Program; Visit Provider Internal Medicine Cardiovascular Disease | DX: Z51.89 Encounter for other specified aftercare (principal); I25.2 Old myocardial infarction; Z95.5 Presence of coronary angioplasty implant and graft | CPT/HCPCS: S9472 ==

== ENCOUNTER 2022-05-29 02:27 | Outpatient (CLI) | payer MEDICARE, BC, SELFPAY ==
--- NOTE | 2022-05-29 | DI.DEXA_ITS ---
Exam(s) XR DEXA BONE DENSITY W/WO ALVAREZ EXAM: XR DEXA BONE DENSITY W/WO ALVAREZ CLINICAL HISTORY: OSTEOPENIA,OTHER DISORDER BONE DENSITY STRUCTURE, M85.88 TECHNIQUE: Routine DEXA evaluation of the lumbar spine, hip, or forearm. COMPARISON: Prior DEXA scan January 2016. FINDINGS: Performed on a [employer] unit. Lateral image: No compression fracture evident. Lumbar Spine total T-score: 0.4. Prior 2016 reading was -0.3 Hip total T-score:-0.8. Prior 2016 reading was -0.3. Independent reading at the level of the femoral neck yields T-score of -1.4 Forearm total T-score: -1.5 IMPRESSION: Bone mineral density measures in the osteopenia range. Fracture risk is moderate. Note: Any spine fracture indicates 5x risk for subsequent spine fracture and 2x risk for subsequent h ip fracture. World Health Organization criteria for BMD interpretation classify patients: Normal...... T- Score at or above -1.0 Osteopenic... T- Score between -1.0 and -2.5 Osteoporosis... T-Score at or below -2.5
== END 2022-05-29 02:47 ==
LOC: DI 02:27
PROVIDERS: PCP Nurse Practitioner Family; Visit Provider Nurse Practitioner Family
DX: M85.88 Other specified disorders of bone density and structure, other site (principal)
CPT/HCPCS: 77080

== ENCOUNTER → 2022-06-05 10:30 | Outpatient (BNVA) | payer MEDICARE, BC, SELFPAY | PROVIDERS: PCP Nurse Practitioner Family; Referring Provider Nurse Practitioner Family; Visit Provider Internal Medicine Cardiovascular Disease | DX: I25.10 Atherosclerotic heart disease of native coronary artery without angina pectoris (principal); I10 Essential (primary) hypertension; E78.5 Hyperlipidemia, unspecified; I25.2 Old myocardial infarction | CPT/HCPCS: 99214 ==

== ENCOUNTER 2022-08-09 12:15 | Outpatient (REF) | payer MEDICARE, BC, SELFPAY ==
[2022-08-09 17:08] LABS: Anion Gap 10.5 mmol/L (3-11); BUN 17 mg/dL (7-18); CO2 27.5 mmol/L (21.0-32.0); CREATININE 0.8 mg/dL (0.55-1.02); Calcium 9.2 mg/dL (8.5-10.1); Chloride 105 mmol/L (98-107); Estimated GFR 72.61 (mL/min/1.73m2); Glucose 168 mg/dL (74-106); Sodium 143 mmol/L (136-145)
[2022-08-09 17:35] LABS: Vitamin D 25 Total 26.6 ng/mL (30-100)
== END 2022-08-09 12:16 | disposition home or self-care (01) ==
LOC: NCHCN 12:15
PROVIDERS: PCP Nurse Practitioner Family; Visit Provider Nurse Practitioner Family
DX: I25.10 Atherosclerotic heart disease of native coronary artery without angina pectoris (principal); I10 Essential (primary) hypertension; E78.5 Hyperlipidemia, unspecified; F41.8 Other specified anxiety disorders; R25.1 Tremor, unspecified; M85.88 Other specified disorders of bone density and structure, other site; F17.210 Nicotine dependence, cigarettes, uncomplicated
CPT/HCPCS: 80048; 82306

== ENCOUNTER 2022-09-05 00:54 | Outpatient (CLI) | payer MEDICARE, BC, SELFPAY ==
--- NOTE | 2022-09-05 13:07 | DI.RAD_ITS ---
Exam(s) XR HAND RT COMPLETE EXAM: XR HAND RT COMPLETE CLINICAL HISTORY: RT THUMB PAIN, M79.644,? ARTHRITIS. TECHNIQUE: 2D digital imaging was performed. Three views. COMPARISON: No exams were available for comparison FINDINGS: BONES: No acute fracture is present. No bony destructive lesion is seen. JOINTS: No dislocation present. Severe narrowing and prominent periarticular spurring at the 1st ca rpal metacarpal joint. Minimal degenerative changes elsewhere. Mild negative ulnar variance. SOFT TISSUE: Normal. 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 DATA REPOSITORY: RADIATION DOSE DELIVERED:
== END 2022-09-05 01:14 ==
LOC: DI 00:56
PROVIDERS: PCP Nurse Practitioner Family; Visit Provider Nurse Practitioner Family
DX: M18.11 Unilateral primary osteoarthritis of first carpometacarpal joint, right hand (principal); M79.644 Pain in right finger(s)
CPT/HCPCS: 73130

== ENCOUNTER 2022-10-15 13:19 | Outpatient (REF) | payer MEDICARE, BC, SELFPAY ==
[2022-10-15 16:26] LABS: Hemoglobin A1C 5.8 % (<5.7)
[2022-10-15 16:45] LABS: ALT 19 U/L (14-59); AST 16 U/L (15-37); Albumin 4.2 g/dL (3.4-5.0); Alkaline Phosphatase 95 U/L (46-116); Anion Gap 10.7 mmol/L (3-11); BUN 17 mg/dL (7-18); Bilirubin, Total 0.5 mg/dL (0.2-1.0); CO2 26.3 mmol/L (21.0-32.0); CREATININE 0.7 mg/dL (0.55-1.02); Calcium 9.2 mg/dL (8.5-10.1); Chloride 108 mmol/L (98-107); Estimated GFR 85.23 (mL/min/1.73m2); Glucose 84 mg/dL (74-106); Potassium 4.3 mmol/L (3.5-5.1); Sodium 145 mmol/L (136-145); TSH (W/Ref FT4) 2.78 uIU/mL (0.36-3.74); Total Protein 7.3 g/dL (6.4-8.2); Vitamin B12 477 pg/mL (193-986)
[2022-10-17 12:12] LABS: Lyme Ab w Rflx to Lyme Confirm Negative (Negative)
== END 2022-10-15 13:20 | disposition home or self-care (01) ==
LOC: LBN 13:19
PROVIDERS: PCP Nurse Practitioner Family; Visit Provider Family Medicine
DX: G60.8 Other hereditary and idiopathic neuropathies (principal); R73.03 Prediabetes
CPT/HCPCS: 80053; 82607; 83036; 84443; 86618

== ENCOUNTER 2022-10-20 11:54 | Emergency (ER) | payer MEDICARE, BC, SELFPAY ==
[2022-10-20 11:57] VITALS: BP 145/74; PULSE 80; RESP 18; TEMP 37; O2SAT 98
[2022-10-20 12:05] VITALS: RESP 16
--- NOTE | 2022-10-20 12:13 | ED.GENADUL_ITS ---
Discharge Plan Disposition Patient Disposition: Home Condition: Stable Discharge Details Clinical Impression: Cellulitis of great toe of left foot Primary Care Provider: Elyssa Mi ED Provider: Winter Sims Home Meds and New Rx's Prescriptions: New cephalexin 500 mg tablet 500 mg PO BID 5 Days Qty: 10 0RF Rx Instructions: Take one tablet by mouth twice a day x 5 days No Action metoprolol succinate 50 mg tablet extended release 24 hr 50 mg PO DAILY clopidogrel 75 mg tablet 75 mg PO DAILY aspirin 81 mg tablet,delayed release (DR/EC) 81 mg PO DAILY nitroglycerin 0.4 mg tablet, sublingual 0.4 mg sublingual Q5 MIN PRN X3 PRN rosuvastatin 20 mg tablet 20 mg PO HS amlodipine [Norvasc] 5 mg tablet 5 mg PO DAILY Patient Comments: Take 1 tablet by mouth once a day Discharge Instructions Instructions: Cellulitis (ED) Additional Instructions: Take the antibiotic with yogurt or probiotic as directed for the next 5 days. Continue using the mupirocin cream as previously prescribed. Follow up with primary care provider in 3-5 days. Return to ED sooner if any worsening or concerns. Increase oral fluids. Please take Tylenol with food every 4-6 hours as needed for pain and swelling. Referrals: Elyssa Mi [Primary Care Provider] - 3 days Medical Decision Making 86-year-old female presents to the ER with a chief complaint of left great toe redness and pain. She has been placing mupirocin ointment on it for the last 5 days. Denies any fever chills or any other associated symptoms. We will give 5 days of oral antibiotic. She is not a diabetic. She does have a history of coronary artery disease, hyperlipidemia hypertension and NSTEMI. We will give 5 days of cephalexin. To go bottle given. This text was generated using [employer] system, please disregard any oddities of phrase or misspellings. HPI General Mode of arrival: ambulatory . Date/Time Provider Initiated Documentation: 10/20/22 11:59 . Limitations to Documentation: no limitations . Information obtained by: patient, RN notes reviewed and old records reviewed . HPI Narrative: 86-year-old female presents to the ER with a chief complaint of left great toe redness and pain. She has been placing mupirocin ointment on it for the last 5 days. Denies any fever chills or any other associated symptoms. We will give 5 days of oral antibiotic. She is not a diabetic. She does have a history of coronary artery disease, hyperlipidemia hypertension and NSTEMI. Related Data Home Medications Medication Instructions Recorded Confirmed amlodipine 5 mg tablet (Norvasc) 5 mg PO DAILY 07/20/21 06/05/22 aspirin 81 mg tablet,delayed 81 mg PO DAILY 08/04/21 10/20/22 release clopidogrel 75 mg tablet 75 mg PO DAILY 08/04/21 06/05/22 metoprolol succinate 50 mg 50 mg PO DAILY 08/04/21 10/20/22 tablet,extended release 24 hr nitroglycerin 0.4 mg sublingual 0.4 mg sublingual Q5 MIN PRN X3 PRN 08/04/21 10/20/22 tablet rosuvastatin 20 mg tablet 20 mg PO HS 08/04/21 10/20/22 cephalexin 500 mg tablet 500 mg PO BID Cellulitis 5 days 10/20/22 #10 tabs Previous Rx's Medication Instructions Recorded cephalexin 500 mg tablet 500 mg PO BID Cellulitis 5 days 10/20/22 #10 tabs Allergies Allergy/AdvReac Type Severity Reaction Status Date / Time No Known Allergies Allergy Verified 10/20/22 12:03 General Stated Complaint: GenMedical NADINE: 4 Review of Systems Integumentary/Breasts Skin/Breast: Reports as per HPI and Reports erythema PFSH All Active Problems (Updated 10/20/22 @ 12:22 by Winter Sims NP) Cellulitis of great toe of left foot (Acute) Hyperlipidemia (Acute) CAD (coronary artery disease) (Chronic) Essential hypertension (Acute) Non-ST elevation myocardial infarction (NSTEMI) (Acute) 07/2021 [facility] stents to RCA and cx LAD disease not intervened on. Social History Smoking/Tobacco Use Status: Current-Occasional Tobacco Type: cigarettes Smoking risk assessment performed?: Yes Alcohol Intake: current Alcohol Intake frequency: 0-2 drinks per day Alcohol type: wine Drug use: Never Substance use type: does not use Details: drinks a glass of wine each day Do you feel safe at home: Yes Do you feel safe in your relationship?: Yes Exam Extrem Left lower extremity: foot Details: tenderness and ecchymosis (Left great toe erythema tenderness) Course Vital Signs Vital signs: Vital Signs Temperature 37.0 C 10/20/22 11:57 Pulse 80 10/20/22 11:57 Respiratory Rate 18 10/20/22 11:57 Blood Pressure 145/74 H 10/20/22 11:57 Pulse Oximetry 98 10/20/22 11:57 Temperature 37.0 C 10/20/22 11:57 Pulse 80 10/20/22 11:57 Respiratory Rate 16 10/20/22 12:05 Respiratory Effort Normal 10/20/22 12:05 Respiratory Depth Normal 10/20/22 12:05 Respiratory Pattern Normal 10/20/22 12:05 Blood Pressure 145/74 H 10/20/22 11:57 Pulse Oximetry 98 10/20/22 11:57 Oxygen Delivery Method Room Air 10/20/22 11:57 Oxygen Flow Rate 0 10/20/22 11:57
[2022-10-20] MEDS: Cephalexin 500 MG CAP, 2 CAPS/BTL PO (12:20)
== END 2022-10-20 12:26 | disposition home or self-care (01) ==
PROVIDERS: Emergency Provider Registered Nurse Emergency; PCP Nurse Practitioner Family
DX: L03.032 Cellulitis of left toe (principal)
CPT/HCPCS: 99283; 99284

== ENCOUNTER 2022-10-28 07:44 | Emergency (ER) | payer MEDICARE, BC, SELFPAY ==
[2022-10-28 07:50] VITALS: BP 123/69; PULSE 76; RESP 18; TEMP 36.5; O2SAT 98
--- NOTE | 2022-10-28 08:01 | W.ED.GENAD ---
Discharge Plan Disposition Patient Disposition: Home Condition: Good Discharge Details Clinical Impression: Cellulitis of great toe of left foot Primary Care Provider: Elyssa Mi ED Provider: Cary Waite Home Meds and New Rx's Prescriptions: Continued metoprolol succinate 50 mg tablet extended release 24 hr 50 mg PO DAILY clopidogrel 75 mg tablet 75 mg PO DAILY Patient Comments: pt states they took me off aspirin 81 mg tablet,delayed release (DR/EC) 81 mg PO DAILY nitroglycerin 0.4 mg tablet, sublingual 0.4 mg sublingual Q5 MIN PRN X3 PRN rosuvastatin 20 mg tablet 20 mg PO HS amlodipine [Norvasc] 5 mg tablet 5 mg PO DAILY Patient Comments: Take 1 tablet by mouth once a day Discharge Instructions Instructions: Cellulitis (ED) Additional Instructions: Do the Epsom salt soaks 6 times per day. Keflex 500 mg 4 times per day. Return to ED for worsening redness including red streaks going up your leg, fever of 100.4 or above, any other concerns. Recheck with your PCP in 48 hours if not improved. HPI General Date/Time Provider Initiated Documentation: 10/28/22 08:01. HPI Narrative: This 86-year-old female patient presents with a chief complaint of possible infection to her left great toe. The patient reports that last week she had a medial ingrown toenail removed at a local clinic. She states that prior to this the area hurt but felt better after the ingrown portion of the nail was removed. She has been doing Epsom salt soaks twice a day. There is some bruising around the area and I note that she is on Plavix. She presents today because she is concerned about infection. The toe is more swollen and red compared to the right-hand side. It also is warm to the touch. She says she feels like she has some mild numbness over her forefoot. There is no foot erythema or red streaks going up her leg. She has no calf pain. She denies fever or shaking chills and otherwise has felt well. Related Data Home Medications Medication Instructions Recorded Confirmed amlodipine 5 mg tablet (Norvasc) 5 mg PO DAILY 07/20/21 10/28/22 aspirin 81 mg tablet,delayed 81 mg PO DAILY 08/04/21 10/28/22 release clopidogrel 75 mg tablet 75 mg PO DAILY 08/04/21 06/05/22 metoprolol succinate 50 mg 50 mg PO DAILY 08/04/21 10/28/22 tablet,extended release 24 hr nitroglycerin 0.4 mg sublingual 0.4 mg sublingual Q5 MIN PRN X3 PRN 08/04/21 10/28/22 tablet rosuvastatin 20 mg tablet 20 mg PO HS 08/04/21 10/28/22 Allergies Allergy/AdvReac Type Severity Reaction Status Date / Time No Known Allergies Allergy Verified 10/28/22 07:56 General Stated Complaint: Cellulitis NADINE: 4 Review of Systems Constitutional Constitutional: Denies chills and Denies fever(s) Musculoskeletal Musculoskeletal: Reports other (Has left great toe erythema, warmth, ecchymosis) PFSH All Active Problems Cellulitis of great toe of left foot (Acute) Hyperlipidemia (Acute) CAD (coronary artery disease) (Chronic) Essential hypertension (Acute) Non-ST elevation myocardial infarction (NSTEMI) (Acute) [place] [facility] [place]CA and cx LAD disease not intervened on. Social History Smoking/Tobacco Use Status: Current-Occasional Tobacco Type: cigarettes Smoking risk assessment performed?: Yes Alcohol Intake: current Alcohol Intake frequency: 0-2 drinks per day Alcohol type: wine Drug use: Never Substance use type: does not use Details: drinks a glass of wine each day Do you feel safe at home: Yes Do you feel safe in your relationship?: Yes Exam Const General: healthy appearing, comfortable, no acute distress, well developed and well groomed [facility] Head: normocephalic and atraumatic Eyes Conjunctivae: conjunctivae normal Neck Neck: full ROM and supple Resp Effort & Inspection: normal respiratory effort Skin General skin exam: other (PWD) Other: Left great toe medially with ecchymosis. A small amount of dried exudate was gently removed and the trimmed nail looks appropriate. The area otherwise appears clean dry and intact. The toe is vaguely pinker than the opposite side and warmer to the touch. Capillary refill is intact. Sensation is intact. Course The patient will take Keflex as prescribed and increase the Epsom salts soaks to 4 times per day. She will return to the ED for fever of 100.4 or above with worsening redness or red streaks. She will get a recheck with her PCP if not improved in 48 hours. Vital Signs Vital signs: Vital Signs Temperature 36.5 C 10/28/22 07:50 Pulse 76 10/28/22 07:50 Respiratory Rate 18 10/28/22 07:50 Blood Pressure 123/69 10/28/22 07:50 Pulse Oximetry 98 10/28/22 07:50 Temperature 36.5 C 10/28/22 07:50 Temperature Source Oral 10/28/22 07:50 Pulse 76 10/28/22 07:50 Respiratory Rate 18 10/28/22 07:50 Blood Pressure 123/69 10/28/22 07:50 Blood Pressure Position Sitting 10/28/22 07:50 Pulse Oximetry 98 10/28/22 07:50 Oxygen Delivery Method Room Air 10/28/22 07:50 Oxygen Flow Rate 0 10/28/22 07:50 Pain Level 5 10/28/22 07:50
[2022-10-28] MEDS: Cephalexin 500 MG CAP PO (08:33)
== END 2022-10-28 08:33 | disposition home or self-care (01) ==
PROVIDERS: Emergency Provider Emergency Medicine; PCP Nurse Practitioner Family
DX: L03.032 Cellulitis of left toe; I10 Essential (primary) hypertension; I25.10 Atherosclerotic heart disease of native coronary artery without angina pectoris; E78.5 Hyperlipidemia, unspecified; F17.210 Nicotine dependence, cigarettes, uncomplicated; I25.2 Old myocardial infarction
CPT/HCPCS: 99283

== ENCOUNTER 2022-11-07 07:24 | Outpatient (CLI) | payer MEDICARE, BC, SELFPAY ==
--- NOTE | 2022-11-07 | DI.RAD_ITS ---
Exam(s) XR TOE LT GREAT EXAM: XR TOE LT GREAT CLINICAL HISTORY: CELLULITIS, L03.90, INGROWN TOENAIL, L60.0. TECHNIQUE: 2D digital imaging was performed. Three views. COMPARISON: No exams were available for comparison FINDINGS: BONES: No acute fracture is present. No bony destructive lesion is seen. JOINTS: No dislocation present. SOFT TISSUE: Some swelling around toenail. IMPRESSION: No bony abnormality. DATA REPOSITORY: RADIATION DOSE DELIVERED:
== END 2022-11-07 07:44 ==
LOC: DI 07:25
PROVIDERS: PCP Nurse Practitioner Family; Visit Provider Nurse Practitioner Family
DX: L60.0 Ingrowing nail (principal); L03.90 Cellulitis, unspecified
CPT/HCPCS: 73660

== ENCOUNTER → 2022-12-04 09:38 | Outpatient (BNVA) | payer MEDICARE, BC, SELFPAY | PROVIDERS: PCP Nurse Practitioner Family; Visit Provider Internal Medicine Cardiovascular Disease | DX: I25.10 Atherosclerotic heart disease of native coronary artery without angina pectoris (principal); I10 Essential (primary) hypertension; E78.5 Hyperlipidemia, unspecified | CPT/HCPCS: 99214 ==

== ENCOUNTER 2022-12-20 14:54 | Outpatient (REF) | payer MEDICARE, BC, SELFPAY ==
[2022-12-20 20:46] LABS: Abs Immature Grans 0.02 10^3/uL (0.0-0.06); Absolute Basophil Count 0.04 10^3/uL (0.0-0.2); Absolute Eosinophil Count 0.12 10^3/uL (0.0-0.7); Absolute Neutrophil Count 6.12 10^3/uL (1.2-6.7); Basophils % 0.5; Eosinophils % 1.4; HCT 44.9 % (36.0-46.0); HGB 15.3 g/dL (11.2-15.7); Immature Grans % 0.2; Lymphocytes % 15.7; MCHC 34.1 % (32.0-36.0); MCV 91 fL (80-95); MPV 11.7 fL (8.0-11.0); Monocytes % 8.4; Neutrophils % 73.8; Platelet Count 349 10^3/uL (130-400); RBC 4.94 10^6/uL (3.93-5.22); RDW 13.2 % (11.7-14.6); RDW-SD 44.1 fL
[2022-12-20 20:58] LABS: Bilirubin Small (Negative); Blood Small (Negative); Clarity Clear (Clear); Glucose Negative (Negative); Ketones Trace mg/dL (Negative); Leukocyte Esterase Trace (Negative); Nitrite Negative (Negative); Urobilinogen 0.2 mg/dL (Up to 0.2); pH 5.5 (5-8)
[2022-12-20 21:01] LABS: Iron 45 ug/dL (50-170); Total Iron Binding Capacity 276 ug/dL (250-450); Transferrin Sat 16 % (15-50)
[2022-12-20 21:33] LABS: ALT 40 U/L (14-59); AST 25 U/L (15-37); Albumin 3.7 g/dL (3.4-5.0); Alkaline Phosphatase 147 U/L (46-116); Anion Gap 9.2 mmol/L (3-11); BUN 11 mg/dL (7-18); Bilirubin, Total 0.4 mg/dL (0.2-1.0); CO2 29.8 mmol/L (21.0-32.0); CREATININE 0.9 mg/dL (0.55-1.02); Calcium 9.2 mg/dL (8.5-10.1); Chloride 103 mmol/L (98-107); Estimated GFR 62.65 (mL/min/1.73m2); Ferritin 187 ng/mL (8-252); Glucose 105 mg/dL (74-106); Potassium 3.9 mmol/L (3.5-5.1); Sodium 142 mmol/L (136-145); TSH (W/Ref FT4) 2.34 uIU/mL (0.36-3.74); Total Protein 6.8 g/dL (6.4-8.2); Vitamin B12 880 pg/mL (193-986)
[2022-12-20 21:36] LABS: Epithelial Cells Many HPF (Negative)
[2022-12-20 21:37] LABS: Bacteria Rare HPF (Negative); C & S Indicated? No/Sq. Contamination; Casts 0-2 Hyaline LPF (Negative); Crystals Negative HPF (Negative); Mucus Moderate (Negative); Other Cells Negative (Negative)
[2022-12-20 21:52] LABS: NT-proBNP 265 pg/mL (<300)
== END 2022-12-20 14:55 | disposition home or self-care (01) ==
LOC: NCHCN 14:54
PROVIDERS: PCP Nurse Practitioner Family; Visit Provider Nurse Practitioner Family
DX: R41.3 Other amnesia (principal); E55.9 Vitamin D deficiency, unspecified; R19.7 Diarrhea, unspecified; G62.9 Polyneuropathy, unspecified; R25.1 Tremor, unspecified
CPT/HCPCS: 80053; 82306; 81003; 81015; 82607; 82728; 83540; 83550; 83735; 83880; 84443; 85025

== ENCOUNTER 2022-12-25 20:13 | Outpatient (REF) | payer MEDICARE, BC, SELFPAY ==
[2022-12-25 17:01] LABS: C Diff PCR Negative (Negative)
[2022-12-27 10:57] LABS: Campylobacter PCR Negative (Negative); Salmonella PCR Negative (Negative); Shiga Toxin PCR Negative (Negative); Shigella/Enteroinvasive Ecoli Negative (Negative)
== END 2022-12-25 20:14 | disposition home or self-care (01) ==
LOC: NCHCN 20:13
PROVIDERS: PCP Nurse Practitioner Family; Visit Provider Nurse Practitioner Family
DX: R19.7 Diarrhea, unspecified (principal); E55.9 Vitamin D deficiency, unspecified; R53.83 Other fatigue; R25.1 Tremor, unspecified
CPT/HCPCS: 87493; 87505; 87177

== ENCOUNTER 2022-12-29 18:40 | Inpatient (IN) | payer MEDICARE, BC, SELFPAY ==
[2022-12-29] VITALS (32 sets, daily range): BP systolic 87–130; BP diastolic 31–49; PULSE 60–73; RESP 18; TEMP 36.6; O2SAT 94–98
--- NOTE | 2022-12-29 19:00 | DI.CT_ITS ---
Exam(s) CT ABDOMEN PELVIS W EXAM: CT ABDOMEN PELVIS W CLINICAL HISTORY: abdominal pain, n/v. TECHNIQUE: Imaging Protocol: Axial computed tomography images with coronal and sagittal reformatted images were created and reviewed CONTRAST MATERIAL: Intravenous: Omnipaque-350 100cc Oral: None FINDINGS: VISUALIZED LUNG BASES: No nodules nor pleural effusions evident. ABDOMEN: There is no ascites. LIVER: There are benign cysts in both hepatic lobes again noted. The largest is in the right hepatic lobe and has further increased in size from 2018, presently measuring 9.6 cm wide by 8.6 cm AP by 8. 5 cm cephalocaudal. Slightly smaller cyst in the left hepatic lobe has also slightly increased in si ze, presently measuring 4.5 cm wide by 3.3 cm AP x 2.7 cm cephalocaudal. No solid liver masses. Mil d dilatation of intrahepatic ducts noted in this elderly patient who has had prior cholecystectomy. GALLBLADDER/BILIARY: Gallbladder is again noted to be surgically absent. CBD diameter upper normal. PANCREAS: No evidence of pancreatic mass nor dilatation of the pancreatic duct. SPLEEN: Spleen is not enlarged. No obvious intrasplenic lesions. Splenic and portal veins are paten t. ADRENALS: There are no significant adrenal masses. KIDNEYS:No cysts evident. No solid renal masses. No calculi nor hydronephrosis.. ABDOMINAL AORTA: Calcified but not enlarged. Common iliac arteries also calcified but not enlarged. LYMPH NODES:There is no retroperitoneal nor paraaortic adenopathy. ABDOMINAL WALL: No evidence of significant anterior abdominal wall nor inguinal hernia. GI: Small hiatal hernia. There are fluid-filled mid-distal small bowel loops which exhibit diameters up to 2.4 cm. These loops do not appear edematous and there is no ascites evident. The terminal il eum is collapsed but doubtful for stricture. There is also fluid seen within colon loops consistent with probable diarrhea state. There does not appear to be an obvious colitis pattern. There is exte nsive sigmoid diverticulosis. Possible subtle diverticulitis in the sigmoid. No perforation. No ab scess. No free fluid. No appendicitis. PELVIS: LYMPH NODES: There is no intrapelvic nor inguinal adenopathy. REPRODUCTIVE: Uterus again noted be surgically absent. No abnormal adnexal masses nor free fluid in the pelvis. URINARY BLADDER: Collapsed. OSSEOUS: No fractures and no significant osseous lesions. IMPRESSION: 1. Extensive sigmoid diverticulosis. Possible very subtle diverticulitis at this level. No abscess. No free air. No free fluid. The colon is also filled with fluid consistent with diarrhea state. 2. Mild enteritis pattern of the small bowel but no evidence of true small-bowel obstruction. 3. Previous cholecystectomy and hysterectomy. 4. Benign appearing cysts in the liver which have slightly further increased in size from April 10. however, these hepatic cysts exhibit no internal solid components. Discussed with hospitalist 12/30/2022 RADIATION DOSE DELIVERED: 760.66mGy.cm Total DLP DATA REPOSITORY: All CT scans at this facility are submitted to the National Radiology Data Registry (NRDR) Dose Index Registry (DIR) with the [employer] (ACR). RADIATION OPTIMIZATION: All CT scans at this facility use at least one of these dose optimization te chniques: automated exposure control; mA and/or kV adjustment per patient size (includes targeted exa ms where dose is matched to clinical indication); or iterative reconstruction.
--- NOTE | 2022-12-29 19:00 | DI.RAD_ITS ---
Exam(s) XR CHEST 2V PA LATERAL EXAM: XR CHEST 2V PA LATERAL CLINICAL HISTORY: ?pneumonia. TECHNIQUE: 2D digital imaging was performed. COMPARISON: CR XR CHEST 2V PA LATERAL from 08/04/2021 FINDINGS: 2 views: Endovascular stent noted in left side of the heart. Heart size is normal. The mediastinum is not widened. Lungs are clear. No infiltrates nor pleural effusions. No pulmonary edema. IMPRESSION: No acute pulmonary findings. DATA REPOSITORY: RADIATION DOSE DELIVERED:
--- NOTE | 2022-12-29 19:12 | ED.GENADUL_ITS ---
Discharge Plan Discharge Details Chief Complaint: Nausea/Vomit/Diar Primary Care Provider: Elyssa Mi ED Provider: Derik Sen Home Meds and New Rx's Prescriptions: No Action metoprolol succinate 50 mg tablet extended release 24 hr 50 mg PO DAILY aspirin 81 mg tablet,delayed release (DR/EC) 81 mg PO DAILY nitroglycerin 0.4 mg tablet, sublingual 0.4 mg sublingual Q5 MIN PRN X3 PRN rosuvastatin 20 mg tablet 20 mg PO HS amlodipine [Norvasc] 5 mg tablet 5 mg PO DAILY Patient Comments: Take 1 tablet by mouth once a day Medical Decision Making 87 yo pleasant female with hx of CAD, hld, htn, who comes in with approximately 2 weeks of diarrhea. She denies recent travel, no fevers, though she did have chills yesterday. She states the last few days she has also had some lower abdominal discomfort earlier along with n/v. She is stable on arrival, caox4 with clear speech. She denies headaches, chest pain, dyspnea, rashes. She has a soft abdomen, is tender in the right lower abdomen and left lower abdomen. Unclear etiology for her symptoms but seems likely infectious gastroenteritis with her diarrhea. Will evaluate for other potential causes such as diverticulitis, appendicitis, and electrolyte abnormalities from the diarrhea with cbc, cmp, and ct abd/pelvis. Will also obtain c diff screen and fecal bacterial pathogen testing as well if she is able to provide a stool sample. Pt will be signed out to oncoming provider pending labs, ct results and dispo. Differential Diagnosis Differential Diagnosis: diverticulitis, colitis, sbo Medical Records Medical records reviewed: Yes I reviewed the patient's medical records. Lab Data Lab results reviewed: Yes I reviewed the patient's lab results. HPI General Mode of arrival: ambulatory . Date/Time Provider Initiated Documentation: 12/29/22 18:49 . Limitations to Documentation: no limitations . Information obtained by: patient and family . History of Present Illness 87 year old F presents to the emergency department with the chief complaint of diarrhea, described as moderate, Quality is described as aching, and is localized to the abdomen. Patient reports no radiation. Patient started experiencing this week(s) (2) and it has been constant. No relieving factors improve symptom(s), No exacerbating factors reported . Patient notes nausea/vomiting. Patient did receive the following treatments prior to arrival, none Related Data Home Medications Medication Instructions Recorded Confirmed amlodipine 5 mg tablet (Norvasc) 5 mg PO DAILY 07/20/21 12/04/22 aspirin 81 mg tablet,delayed 81 mg PO DAILY 08/04/21 12/04/22 release metoprolol succinate 50 mg 50 mg PO DAILY 08/04/21 12/04/22 tablet,extended release 24 hr nitroglycerin 0.4 mg sublingual 0.4 mg sublingual Q5 MIN PRN X3 PRN 08/04/21 tablet rosuvastatin 20 mg tablet 20 mg PO HS 08/04/21 12/04/22 Allergies Allergy/AdvReac Type Severity Reaction Status Date / Time No Known Allergies Allergy Verified 12/29/22 18:49 General Stated Complaint: Nausea/Vomit/Diar NADINE: 2 Review of Systems All systems reviewed & are unremarkable except as noted in HPI and below Constitutional Constitutional: Denies chills, Denies fever(s) and Denies weakness Cardiovascular Cardiovascular: Denies chest pain and Denies dyspnea Respiratory Respiratory: Denies cough and Denies dyspnea Gastrointestinal Gastrointestinal: Reports abdominal pain, Reports nausea and Reports vomiting Musculoskeletal Musculoskeletal: Denies joint swelling Neurologic Neurologic: Denies weakness PFSH All Active Problems Hyperlipidemia (Acute) CAD (coronary artery disease) (Chronic) Essential hypertension (Acute) Non-ST elevation myocardial infarction (NSTEMI) (Acute) 07/2021 [facility] [place] stents to RCA and cx LAD disease not intervened on. Social History Smoking/Tobacco Use Status: Current-Occasional Tobacco Type: cigarettes Smoking risk assessment performed?: Yes Alcohol Intake: current Alcohol Intake frequency: 0-2 drinks per day Alcohol type: wine Drug use: Never Substance use type: does not use Details: drinks a glass of wine each day Housing: house Do you feel safe at home: Yes Do you feel safe in your relationship?: Yes Exam Const General: no acute distress Orientation: alert HENMT Head: normal to inspection Ears: external ears normal General nose exam: external nose normal Mouth: moist mucous membranes Eyes General: appearance normal, both eyes and all related structures Neck Neck: normal visual inspection Resp Effort & Inspection: normal respiratory effort and able to speak in complete sentences Auscultation: clear to auscultation bilaterally Cardio Jugular venous pressure: no JVD Rate: regular rate GI Palpation: soft and tender Skin General skin exam: no rashes or lesions noted Neuro General: patient alert and patient oriented x3 Extrem General: normal to inspection Psych Mental Status: mental status grossly normal Course Vital Signs Vital signs: Vital Signs Temperature 36.6 C 12/29/22 18:43 Pulse 73 12/29/22 18:43 Respiratory Rate 18 12/29/22 18:43 Blood Pressure 87/45 L 12/29/22 18:43 Pulse Oximetry 94 12/29/22 18:43 Temperature 36.6 C 12/29/22 18:43 Temperature Source Skin 12/29/22 18:43 Pulse 73 12/29/22 18:43 Respiratory Rate 18 12/29/22 18:43 Blood Pressure 87/45 L 12/29/22 18:43 Blood Pressure Position Sitting 12/29/22 18:43 Pulse Oximetry 94 12/29/22 18:43 Oxygen Delivery Method Room Air 12/29/22 18:43 Oxygen Flow Rate 0 12/29/22 18:43 Pain Level 0 12/29/22 18:43
[2022-12-29] MEDS: Normal Saline 1,000 ML 1000 ML IV (19:35)
[2022-12-29 19:37] LABS: Bilirubin Moderate (Negative); Blood Moderate (Negative); Clarity Cloudy (Clear); Glucose Negative (Negative); Ketones 15 mg/dL (Negative); Leukocyte Esterase Small (Negative); Nitrite Positive (Negative); Specific Gravity >= 1.030 (1.005-1.025); Urobilinogen 0.2 mg/dL (Up to 0.2); pH 5.5 (5-8)
[2022-12-29 19:41] LABS: Abs Immature Grans 0.04 10^3/uL (0.0-0.06); Absolute Basophil Count 0.07 10^3/uL (0.0-0.2); Absolute Eosinophil Count 0.18 10^3/uL (0.0-0.7); Absolute Lymphocyte Count 1.07 10^3/uL (1.2-3.4); Absolute Monocyte Count 0.83 10^3/uL (0.1-0.8); Absolute Neutrophil Count 8.57 10^3/uL (1.2-6.7); Basophils % 0.7; Eosinophils % 1.7; HCT 45.7 % (36.0-46.0); HGB 15.7 g/dL (11.2-15.7); Immature Grans % 0.4; Lymphocytes % 9.9; MCH 30.5 pg (27.0-33.0); MCHC 34.4 % (32.0-36.0); MCV 89 fL (80-95); MPV 9.7 fL (8.0-11.0); Monocytes % 7.7; Neutrophils % 79.6; Platelet Count 272 10^3/uL (130-400); RBC 5.14 10^6/uL (3.93-5.22); RDW 12.5 % (11.7-14.6); RDW-SD 41.5 fL; WBC 10.76 10^3/uL (4.4-10.8)
[2022-12-29 19:46] LABS: Bacteria Moderate HPF (Negative); C & S Indicated? No/Sq. Contamination; Casts Negative LPF (Negative); Crystals Negative HPF (Negative); Epithelial Cells Many HPF (Negative); Mucus Moderate (Negative)
[2022-12-29 20:03] LABS: ALT 388 U/L (14-59); AST 383 U/L (15-37); Albumin 3.1 g/dL (3.4-5.0); Alkaline Phosphatase 592 U/L (46-116); Anion Gap 9.8 mmol/L (3-11); BUN 13 mg/dL (7-18); Bilirubin, Total 0.7 mg/dL (0.2-1.0); CO2 26.2 mmol/L (21.0-32.0); Calcium 8.6 mg/dL (8.5-10.1); Chloride 102 mmol/L (98-107); Estimated GFR 55.21 (mL/min/1.73m2); Glucose 105 mg/dL (74-106); Lipase < 10 U/L (16-77); Magnesium 1.7 mg/dL (1.8-2.4); Potassium 3.1 mmol/L (3.5-5.1); Sodium 138 mmol/L (136-145); TSH (W/Ref FT4) 4.15 uIU/mL (0.36-3.74); Total Protein 6.8 g/dL (6.4-8.2)
[2022-12-29] MEDS: Ondansetron 4 MG/2 ML VIAL IVP (20:04)
[2022-12-29] MEDS: cefTRIAXone 2 GM/50 ML BAG IVPB (20:05)
[2022-12-29] MEDS: Omnipaque 350 MG/ML 100 ML BTL IJ (20:13)
[2022-12-29] MEDS: Normal Saline - Diluent 50 ML VIAL IJ (20:14)
[2022-12-29 20:17] LABS: COVID-19 PCR Negative (Negative); Influenza A PCR Negative (Negative); Influenza B PCR Negative (Negative); RSV PCR Negative (Negative)
[2022-12-29 20:18] LABS: Source Nasopharynx
[2022-12-29 20:20] LABS: FREE T4 1.34 ng/dL (0.76-1.46)
[2022-12-29 20:32] LABS: C Diff PCR Negative (Negative)
--- NOTE | 2022-12-29 20:50 | W.EDPROG ---
Date of service: 12/29/22 Time of Service: 20:50 Medical Decision Making I received signout on this 87-year-old female with abdominal pain and diarrhea. She is pending a CT scan. She has a history of coronary artery disease. She is not having chest pain at the moment. Her urinalysis is concerning for infection and she has received 2 g of ceftriaxone. 8:48 PM Mild hypokalemia. No MADELIN. Markedly elevated LFTs. New compared to prior. Mild hypomagnesemia. Mildly elevated TSH reassuring lipase. CBC with no anemia thrombocytopenia nor leukocytosis. Negative COVID RSV and influenza. Free T4 within the normal limits. PCR negative for C. difficile. She initially had a soft blood pressure. Her current blood pressure is 114/41. 9:15 PM Patient does have 2 large hepatic cysts, the largest of which measures 9.5 cm. I am concerned about the possibility of obstruction given her markedly elevated LFTs in the 100s. She has new, mild hypoalbuminemia. She is status post remote cholecystectomy. She does have dilated intrahepatic biliary ducts. [place] [facility] [place] 10:56 PM I spoke with Dr. Goff from [place] [facility] [place] He advised local hospitalization for trending LFTs and right upper quadrant ultrasound. He also reported that the patient would benefit from an MRCP and that if this could not be done locally that the patient could possibly be transferred on Saturday [place] [facility] [place] LFTs worsened. He also advised additional lab tests which I ordered: PTT, INR, acetaminophen level, antinuclear antibiotic, and anti-smooth muscle antibody to assess for autoimmune hepatitis, and acute hepatitis panel. He advised holding antibiotics but ordering 2 sets of blood cultures. I also ordered a right upper quadrant ultrasound. Patient reported no new drugs. 11:04 PM I spoke with Dr. Colon who agreed graciously to accept the patient for hospitalization. Sign Out Sign Out Data: Sign Out Comment: 2 weeks of diarrhea, last few days abdominal pain and today n/v. She is tender in the lower abdomen on exam, pending labs and ct abdomen/pelvis, reevaluation for dispo after results and response to fluids and zofran. Last updated by Dreik Sen MD at 12/29/22 19:19 Discharge Plan Disposition Patient Disposition: Admit to [facility] Discharge Details Clinical Impression: Elevated LFTs, Hepatic cyst, Intrahepatic bile duct dilation, Hypoalbuminemia Primary Care Provider: Elyssa Mi ED Provider: Lv Olivier [place] Meds and New Rx's Prescriptions: No Action metoprolol succinate 50 mg tablet extended release 24 hr 50 mg PO DAILY aspirin 81 mg tablet,delayed release (DR/EC) 81 mg PO DAILY nitroglycerin 0.4 mg tablet, sublingual 0.4 mg sublingual Q5 MIN PRN X3 PRN rosuvastatin 20 mg tablet 20 mg PO HS amlodipine [Norvasc] 5 mg tablet 5 mg PO DAILY Patient Comments: Take 1 tablet by mouth once a day
--- NOTE | 2022-12-29 21:05 | DI.VRAD_ITS ---
PROCEDURE INFORMATION: Exam: XR Chest Exam date and time: 12/29/2022 8:28 PM Age: 87 years old Clinical indication: Other: Weakness; Patient HX: ? Pneumonia; Weak TECHNIQUE: Imaging protocol: Radiologic exam of the chest. Views: 2 views. COMPARISON: CR XR CHEST 2V PA LATERAL 08/04/2021 1:19 PM FINDINGS: Lungs: [id number] hyperinflation suggesting underlying emphysema or COPD. No acute infiltrates. No edema. Pleural spaces: No pleural effusion. Heart/Mediastinum: Normal heart size. Coronary artery endovascular stents. Bones/joints: No acute skeletal change. Mild degenerative thoracic spine. IMPRESSION: 1. No acute infiltrates or edema. 2. No pleural effusion. 3. Coronary artery endovascular stents. No cardiac enlargement. Dictated and Authenticated by: Rakesh Huang MD. Ordering:RUEL More MD
--- NOTE | 2022-12-29 21:11 | DI.VRAD_ITS ---
PROCEDURE INFORMATION: Exam: CT Abdomen And Pelvis With Contrast Exam date and time: 12/29/2022 8:19 PM Age: 87 years old Clinical indication: Nausea and vomiting; Abdominal pain; Patient HX: Abd pain, n/v TECHNIQUE: Imaging protocol: Computed tomography of the abdomen and pelvis with contrast. COMPARISON: CT Abdomen^ROUTINE ABDOMEN PELVIS WITH CONTRAST (Adult) 03/31/2018 10:16 AM FINDINGS: Lungs: Mild bronchiectasis of the lung bases consistent with COPD. No acute infiltrates. Pleural spaces: No pleural effusion. Heart: Mild cardiac enlargement. Coronary artery endovascular stents. Liver: Mild diffuse fatty liver change. Large right hepatic cyst measuring 9.5 cm. This has enlarged since 2018. Cyst was 7.8 cm at that time. There is also a cyst in the medial segment of the left lobe of the liver currently 4.5 cm in long dimension. Previously 3.2 cm. Gallbladder and bile ducts: Patient has had a previous cholecystectomy. Mildly prominent intrahepatic bile ducts. This is likely reservoir effect from cholecystectomy. Correlation with serum bilirubin recommended. There are no ductal stones visible. Pancreas: Severe pancreatic atrophy. No acute change. Spleen: The spleen is normal in size, contour and attenuation. Adrenal glands: The adrenal glands are normal in size and contour bilaterally. Kidneys and ureters: The kidneys bilaterally are unremarkable. Normal attenutation. No hydronephrosis. No calculi. Stomach and bowel: Small sliding hiatal hernia. This is stable since 03/31/2018. Gastric morphology is otherwise unremarkable. Small bowel loops are normal in course and caliber. No edema. No obstructive change. Can not exclude a mild small bowel enteritis based on imaging characteristics. Large bowel with scattered diverticulosis. This is severe in the sigmoid colon. There is no focal diverticulitis. Large bowel fecal contents are liquified consistent with a diarrheal process. This is nonspecific. Appendix: A non inflamed appendix is identified. Series 4: Images 44 through 40. Intraperitoneal space: No free fluid. No free air. Vasculature: Atherosclerotic aortoiliac calcium. No aneurysm or acute change. No abdominal aortic aneurysm. Lymph nodes: Unremarkable. No enlarged lymph nodes. Urinary bladder: Urinary bladder is unremarkable in appearance. No wall thickening. No intravesicular calculi. No intravesicular gas. Reproductive: Previous hysterectomy. Bones/joints: Degenerative lumbar spine. No acute skeletal change. Lumbar spine levoscoliosis. Soft tissues: Abdominal wall soft tissues are unremarkable. IMPRESSION: 1. Small bowel pattern may represent a mild enteritis. No mechanical obstruction. 2. Large bowel with liquified fecal contents consistent with a diarrheal process. No lenka edema. 3. Benign-appearing hepatic cysts which have enlarged since 2018. 4. Previous cholecystectomy. No acute biliary features. Dictated and Authenticated by: Rakesh Huang MD. Ordering:RUEL More MD
[2022-12-29 22:56] LABS: Acetaminophen < 2 ug/mL (10-30)
[2022-12-29 23:15] LABS: INR 1.2 (0.9-1.1)
--- NOTE | 2022-12-29 23:26 | HPE_ITS ---
Date of service: 12/29/22 Time of Service: 23:26 Assessment and Plan Assessment and plan (1) Abdominal pain: Start date: 12/29/22 Status: Acute Assessment and plan: This is a 87-year-old lady who has had intermittent abdominal pain for 1 year. She had normal liver function test in November 2022 presents with acute diarrhea and worsening abdominal pain over 3 weeks which is nonfocal. She is status post cholecystectomy and was found to have increased liver function tests which were new this hospitalization. [place] [facility] [place] and autoimmune labs were sent along with acute hepatitis profile with patient. Patient abdominal pain persisted and she was admitted for observation watching for possible fever and cholangitis if she persists with discomfort. Pain management will be maintained with IV morphine. GI consultation also recommend ultrasound of the right upper quadrant which will be performed. (2) Acute hepatitis: Start date: 12/29/22 Status: Acute Assessment and plan: Follow-up lab evaluation as recommended by [place] [facility] Trend labs and IV fluids for repletion of potassium and magnesium (3) Hepatic cyst: Status: Chronic Assessment and plan: The 2 large cysts in the liver are worsening probably not contributing to her acute process. Follow-up with ultrasound and GI (4) Intrahepatic bile duct dilation: Status: Chronic Assessment and plan: Most likely secondary to post cholecystectomy but may consider common duct stone and obstruction though bilirubin is not elevated. Ultrasound and consider MRCP if indicated (5) Diarrhea: Start date: 12/29/22 Status: Acute Assessment and plan: IV fluid resuscitation and bowel rest with clear fluid diet. Follow-up stool evaluations. C. difficile. (6) UTI (urinary tract infection): Start date: 12/29/22 Status: Acute Assessment and plan: Follow-up urine culture and adjust antibiotics to palpation when sensitivities are known. She did receive Rocephin which will be completed this would not be adequate for: Dialysis treatment patient's fever and will need to be expanded if she has fever with her elevated liver function tests. (7) Hypomagnesemia: Start date: 12/29/22 Status: Acute Assessment and plan: Most likely from loss of acute diarrhea. Replete with IV magnesium follow-up labs daily. (8) Hypokalemia: Start date: 12/29/22 Status: Acute Assessment and plan: Patient has a history of hypertension but is not on diuretics. Presenting with fairly severe hypokalemia most likely secondary to acute diarrhea. Oral potassium supplement once and IV fluids with potassium follow-up labs in morning. (9) Essential hypertension: Status: Chronic Assessment and plan: Continue outpatient medical therapy monitoring with adjustment as needed with acute process. (10) Hyperlipidemia: Status: Chronic Assessment and plan: Continue outpatient medical therapy while hospitalized. Patient does have an elevated TSH and is not on thyroid supplement which can be followed up when she is not acutely ill and as an outpatient. History of Present Illness History of Present Illness Chief Complaint: Diarrhea with incontinence and chronic abdominal pain Narrative: This is a 89-year-old female patient who has a 1 year history of intermittent abdominal pain which is similar to her presentation except worsening over the last 3 weeks. She denies any nausea or vomiting but has had onset of loose stools with problems make it to the bathroom in time and stool incontinence. No melena or hematochezia. She denies any fever or chills. She does have a history of hepatic cyst which on imaging in the ED upon presentation today were enlarging. She also had new onset elevation of liver function tests with no severe jaundice. Pain is not necessarily right upper quadrant but more diffuse and intermittent. She is status postcholecystectomy. In the ED she did receive some IV fluids and was found to be hypomagnesemic and hypokalemic probably from diarrhea not being on diuretics chronically. She is on treatment for hypertension and heart disease. She also has hyperlipidemia. She did not take her meds as usual. She denies any weakness or dizziness and has not had any syncope. She is eating and drinking fairly well up to this time. Imaging did reveal dilated intrahepatic biliary ducts and GI was consulted by [place] [facility] [place] they advised further lab testing for the acute hepatitis and observation for cholangitis which should be considered if patient has fever. She was placed on Rocephin for possible UTI in the ED. She is having no urinary symptoms. She is a full code. Review of Systems Narrative: 13 point review of systems otherwise unrevealing or stable. PFSH All Active Problems (Updated 12/30/22 @ 06:50 by Nabeel Colon) Hypokalemia (Acute) Hypomagnesemia (Acute) Diarrhea (Acute) Abdominal pain (Acute) Right upper quadrant abdominal pain (Acute) UTI (urinary tract infection) (Acute) Acute hepatitis (Acute) Elevated LFTs (Acute) Hepatic cyst (Chronic) Intrahepatic bile duct dilation (Chronic) Hyperlipidemia (Chronic) CAD (coronary artery disease) (Chronic) Essential hypertension (Chronic) Non-ST elevation myocardial infarction (NSTEMI) (Acute) 07[place]20[place] [facility] [place] to RCA and cx LAD disease not intervened on. Social History Smoking/Tobacco Use Status: Current-Occasional Tobacco Type: cigarettes Years smoked: 3 Smoking risk assessment performed?: Yes Alcohol Intake: current Alcohol Intake frequency: 0-2 drinks per day Alcohol type: wine Drug use: Never Substance use type: does not use Details: drinks a glass of wine each day Housing: house Do you feel safe at home: Yes Do you feel safe in your relationship?: Yes Meds Allergies and Home Medications Allergies Allergy/AdvReac Type Severity Reaction Status Date / Time No Known Allergies Allergy Verified 12/29/22 18:49 Home Medications Medication Instructions Recorded Confirmed Type amlodipine 5 mg tablet (Norvasc) 5 mg PO DAILY 07/20/21 12/30/22 History aspirin 81 mg tablet,delayed 81 mg PO DAILY 08/04/21 12/30/22 History release metoprolol succinate 50 mg 50 mg PO DAILY 08/04/21 12/30/22 History tablet,extended release 24 hr nitroglycerin 0.4 mg sublingual 0.4 mg sublingual Q5 MIN PRN X3 PRN 08/04/21 12/30/22 History tablet rosuvastatin 20 mg tablet 20 mg PO HS 08/04/21 12/30/22 History Exam Narrative Exam Narrative: General: Patient appears younger than stated age, thin, pleasant affect alert and oriented x3 and in no acute distress. She is slightly anxious. HEENT: Normocephalic, pupils equal react light symmetrically, extraocular movements sclera anicteric. Oropharynx with moist mucosa and fair dentition. Neck: Supple without JVD. Back: Normal posture without CVA tenderness. Lungs: Clear to auscultation percussion no focalizing rales or rhonchi. Breast: Exam deferred. Heart: Regular rate and rhythm with 3/6 systolic murmur left sternal border and no gallops or rubs. Abdomen: Slightly protuberant but soft and tender over right upper quadrant more than lower abdomen but no focalizing guarding with repeat exam and no rebound. Bowel sounds positive all quadrants. Genitalia/rectal: Exam deferred. Extremities: No clubbing, cyanosis or pitting edema. Peripheral pulses intact. Skin: Normal color, warm and dry. Neuro: Cranial nerves II through XII grossly intact, no focalizing motor deficits and no tremor. Psych: Flattened affect with normal mood. Slightly anxious. No abnormal thought processes. Remote and recent memory intact. Results Imaging Imaging Studies: Exam: CT Abdomen And Pelvis With Contrast Exam date and time: 12/29/2022 8:19 PM Age: 87 years old Clinical indication: Nausea and vomiting; Abdominal pain; Patient HX: Abd pain, n/v TECHNIQUE: Imaging protocol: Computed tomography of the abdomen and pelvis with contrast. COMPARISON: CT Abdomen^ROUTINE ABDOMEN PELVIS WITH CONTRAST (Adult) 03/31/2018 10:16 AM FINDINGS: Lungs: Mild bronchiectasis of the lung bases consistent with COPD. No acute infiltrates. Pleural spaces: No pleural effusion. Heart: Mild cardiac enlargement. Coronary artery endovascular stents. Liver: Mild diffuse fatty liver change. Large right hepatic cyst measuring 9.5 cm. This has enlarged since 2018. Cyst was 7.8 cm at that time. There is also a cyst in the medial segment of the left lobe of the liver currently 4.5 cm in long dimension. Previously 3.2 cm. Gallbladder and bile ducts: Patient has had a previous cholecystectomy. Mildly prominent intrahepatic bile ducts. This is likely reservoir effect from cholecystectomy. Correlation with serum bilirubin recommended. There are no ductal stones visible. Pancreas: Severe pancreatic atrophy. No acute change. Spleen: The spleen is normal in size, contour and attenuation. Adrenal glands: The adrenal glands are normal in size and contour bilaterally. Kidneys and ureters: The kidneys bilaterally are unremarkable. Normal attenutation. No hydronephrosis. No calculi. Stomach and bowel: Small sliding hiatal hernia. This is stable since 03/31/2018. Gastric morphology is otherwise unremarkable. Small bowel loops are normal in course and caliber. No edema. No obstructive change. Can not exclude a mild small bowel enteritis based on imaging characteristics. Large bowel with scattered diverticulosis. This is severe in the sigmoid colon. There is no focal diverticulitis. Large bowel fecal contents are liquified consistent with a diarrheal process. This is nonspecific. Appendix: A non inflamed appendix is identified. Series 4: Images 44 through 40. Intraperitoneal space: No free fluid. No free air. Vasculature: Atherosclerotic aortoiliac calcium. No aneurysm or acute change. No abdominal aortic aneurysm. Lymph nodes: Unremarkable. No enlarged lymph nodes. Urinary bladder: Urinary bladder is unremarkable in appearance. No wall thickening. No intravesicular calculi. No intravesicular gas. Reproductive: Previous hysterectomy. Bones/joints: Degenerative lumbar spine. No acute skeletal change. Lumbar spine levoscoliosis. Soft tissues: Abdominal wall soft tissues are unremarkable. IMPRESSION: 1. ? Small bowel pattern may represent a mild enteritis. No mechanical obstruction. 2. ? Large bowel with liquified fecal contents consistent with a diarrheal process. No lenka edema. 3. ? Benign-appearing hepatic cysts which have enlarged since 2018. 4. ? Previous cholecystectomy. No acute biliary features. Exam: XR Chest Exam date and time: 12/29/2022 8:28 PM Age: 87 years old Clinical indication: Other: Weakness; Patient HX: ? Pneumonia; Weak TECHNIQUE: Imaging protocol: Radiologic exam of the chest. Views: 2 views. COMPARISON: CR XR CHEST 2V PA LATERAL 08/04/2021 1:19 PM FINDINGS: Lungs: [id number] hyperinflation suggesting underlying emphysema or COPD. No acute infiltrates. No edema. Pleural spaces: No pleural effusion. Heart/Mediastinum: Normal heart size. Coronary artery endovascular stents. Bones/joints: No acute skeletal change. Mild degenerative thoracic spine. IMPRESSION: 1. ? No acute infiltrates or edema. 2. ? No pleural effusion. 3. ? Coronary artery endovascular stents. No cardiac enlargement. Labs 12/30/22 05:30 12/30/22 05:30 Labs: Laboratory Results - last 24 hr 12/29/22 12/29/22 12/29/22 19:30 19:30 19:35 WBC RBC Hgb Hct MCV MCH MCHC RDW Plt Count MPV Immature Gran % Neutrophils % Lymphocytes % Monocytes % Eosinophils % Basophils % Nucleated RBC % Absolute Neutrophils Absolute Lymphocytes Absolute Monocytes Absolute Eosinophils Absolute Basophils PT INR APTT Sodium Potassium Chloride Carbon Dioxide Anion Gap BUN Creatinine Est GFR (CKD-EPI 2020) Glucose Calcium Magnesium Total Bilirubin AST ALT Alkaline Phosphatase Total Protein Albumin Lipase TSH Free T4 Urine Color Yellow Urine Clarity Cloudy Urine pH 5.5 Ur Specific [place] >= 1.030 H Urine Protein 30 H Urine Ketones 15 H Urine Blood Moderate H Urine Nitrite Positive H Urine Bilirubin Moderate H Urine Urobilinogen 0.2 Ur Leukocyte Esterase Small H Urine RBC 5-10 H Urine WBC 10-20 H Ur Epithelial Cells Many Urine Crystals Negative Urine Bacteria Moderate Urine Casts Negative Urine Mucus Moderate Ur Culture Indicated? No/Sq. Contamination Urine Glucose Negative Stl C.difficile Tox PCR Negative Acetaminophen COVID-19 Source Nasopharynx SARS-CoV-2 (PCR) Negative Influenza Type A (PCR) Negative Influenza Type B (PCR) Negative RSV (PCR) Negative 12/29/22 12/29/22 12/29/22 19:35 19:35 19:35 WBC 10.76 RBC 5.14 Hgb 15.7 Hct 45.7 MCV 89 MCH 30.5 MCHC 34.4 RDW 12.5 Plt Count 272 MPV 9.7 Immature Gran % 0.4 Neutrophils % 79.6 Lymphocytes % 9.9 Monocytes % 7.7 Eosinophils % 1.7 Basophils % 0.7 Nucleated RBC % 0.0 Absolute Neutrophils 8.57 H Absolute Lymphocytes 1.07 L Absolute Monocytes 0.83 H Absolute Eosinophils 0.18 Absolute Basophils 0.07 PT INR APTT Sodium 138 Potassium 3.1 L Chloride 102 Carbon Dioxide 26.2 Anion Gap 9.8 BUN 13 Creatinine 1.0 Est GFR (CKD-EPI 2020) 55.21 Glucose 105 Calcium 8.6 Magnesium 1.7 L Total Bilirubin 0.7 AST 383 H ALT 388 H Alkaline Phosphatase 592 H Total Protein 6.8 Albumin 3.1 L Lipase < 10 L TSH 4.15 H Free T4 1.34 Urine Color Urine Clarity Urine pH Ur Specific [place] Urine Protein Urine Ketones Urine Blood Urine Nitrite Urine Bilirubin Urine Urobilinogen Ur Leukocyte Esterase Urine RBC Urine WBC Ur Epithelial Cells Urine Crystals Urine Bacteria Urine Casts Urine Mucus Ur Culture Indicated? Urine Glucose Stl C.difficile Tox PCR Acetaminophen < 2 COVID-19 Source SARS-CoV-2 (PCR) Influenza Type A (PCR) Influenza Type B (PCR) RSV (PCR) 12/29/22 19:35 WBC RBC Hgb Hct MCV MCH MCHC RDW Plt Count MPV Immature Gran % Neutrophils % Lymphocytes % Monocytes % Eosinophils % Basophils % Nucleated RBC % Absolute Neutrophils Absolute Lymphocytes Absolute Monocytes Absolute Eosinophils Absolute Basophils PT 12.0 H INR 1.2 H APTT 27.0 Sodium Potassium Chloride Carbon Dioxide Anion Gap BUN Creatinine Est GFR (CKD-EPI 2020) Glucose Calcium Magnesium Total Bilirubin AST ALT Alkaline Phosphatase Total Protein Albumin Lipase TSH Free T4 Urine Color Urine Clarity Urine pH Ur Specific [place] Urine Protein Urine Ketones Urine Blood Urine Nitrite Urine Bilirubin Urine Urobilinogen Ur Leukocyte Esterase Urine RBC Urine WBC Ur Epithelial Cells Urine Crystals Urine Bacteria Urine Casts Urine Mucus Ur Culture Indicated? Urine Glucose Stl C.difficile Tox PCR Acetaminophen COVID-19 Source SARS-CoV-2 (PCR) Influenza Type A (PCR) Influenza Type B (PCR) RSV (PCR) Last Vital Signs Temp 36.6 C 12/29/22 18:43 Pulse 68 12/29/22 20:46 Resp 18 12/29/22 18:43 BP 114/41 L 12/29/22 20:46 Pulse Ox 97 12/29/22 20:46 Time Spent Time spent with Patient: >75 minutes Time was spent: preparing to see the patient(eg.review tests), obtaining and/or reviewing separately otained hiistory, ordering medications,tests, procedures, referring, communicating with other health health care analyst, indepentently interpreting results, counseling the patient and care coordination
[2022-12-30] VITALS (8 sets, daily range): BP systolic 100–132; BP diastolic 46–73; PULSE 60–73; RESP 16–18; TEMP 35.9–36.7; O2SAT 92–95
[2022-12-30] MEDS: MAGNESIUM SULFATE 2 GM/50 ML BAG IVPB (01:04)
[2022-12-30] MEDS: Potassium Chloride 20 MEQ TABCR 40 MEQ PO (01:05)
[2022-12-30] MEDS: Heparin 5,000 UNITS/ML VIAL 5000 UNITS SC ×2 (01:05→08:36)
[2022-12-30] MEDS: POTASSIUM CHLORIDE/0.9% NACL 1,000 ML 100 MEQ IV (01:06)
[2022-12-30 06:06] LABS: HGB 12.9 g/dL (11.2-15.7); MCH 31.4 pg (27.0-33.0); MCHC 34.9 % (32.0-36.0); MCV 90 fL (80-95); MPV 10.6 fL (8.0-11.0); Platelet Count 213 10^3/uL (130-400); RBC 4.11 10^6/uL (3.93-5.22); RDW 12.8 % (11.7-14.6); RDW-SD 42.9 fL; WBC 6.91 10^3/uL (4.4-10.8)
[2022-12-30 06:16] LABS: Prothrombin Time 11.7 sec (9.3-11.0)
[2022-12-30 06:17] LABS: INR 1.1 (0.9-1.1)
[2022-12-30 06:28] LABS: ALT 248 U/L (14-59); AST 192 U/L (15-37); Albumin 2.4 g/dL (3.4-5.0); Alkaline Phosphatase 427 U/L (46-116); Anion Gap 12.7 mmol/L (3-11); BUN 8 mg/dL (7-18); Bilirubin, Total 0.4 mg/dL (0.2-1.0); CO2 21.3 mmol/L (21.0-32.0); CREATININE 0.6 mg/dL (0.55-1.02); Calcium 7.8 mg/dL (8.5-10.1); Chloride 105 mmol/L (98-107); Estimated GFR 87.91 (mL/min/1.73m2); Glucose 58 mg/dL (74-106); Magnesium 2.3 mg/dL (1.8-2.4); Potassium 3.6 mmol/L (3.5-5.1); Sodium 139 mmol/L (136-145); Total Protein 5.4 g/dL (6.4-8.2)
--- NOTE | 2022-12-30 08:20 | INITIAL_ITS ---
Date of service: 12/30/22 Time of Service: 08:20 Care Management Initial Assmt Initial Assessment REASON FOR HOSPITALIZATION:: Abdominal pain, Acute hepatitis, Diarrhea, UTI PREVIOUS FUNCTIONAL STATUS/SOCIAL/FAMILY SUPPORTS:: Haylie lives alone in [place]. 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 Haylie drives and is active and independent at baseline. She has 2 daughters and 2 sons. ADVANCE DIRECTIVES:: None on file at [facility] Has patient been provided with info about the portal/API?: Yes Did the patient sign up for the portal?: No CODE STATUS:: Full Code INSURANCE COVERAGE / FINANCIAL ISSUES:: [place] PRIMARY CARE PHYSICIAN:: Elyssa Mi POTENTIAL DISCHARGE NEEDS:: Follow up appointment, discharge plan of care, evaluations for further needs PATIENT/FAMILY EDUCATION NEEDS:: Review discharge instructions, limitations, medications and plan to follow up with community providers. Discuss ask me three and goals of self care. ANTICIPATED BARRIERS TO DISCHARGE:: None identified TRANSPORTATION:: Via private vehicle with family PLAN:: Anticipate Haylie will discharge home via private vehicle with family when medically cleared by provider. She will follow up with community providers and her discharge plan of care as instructed. New [facility] services (if needed) based on evaluations for further needs. CM will follow. [facility] All Active Problems (Updated 12/30/22 @ 06:50 by Nabeel Colon) Hypokalemia (Acute) Hypomagnesemia (Acute) Diarrhea (Acute) Abdominal pain (Acute) Right upper quadrant abdominal pain (Acute) UTI (urinary tract infection) (Acute) Acute hepatitis (Acute) Elevated LFTs (Acute) Hepatic cyst (Chronic) Intrahepatic bile duct dilation (Chronic) Hyperlipidemia (Chronic) CAD (coronary artery disease) (Chronic) Essential hypertension (Chronic) Non-ST elevation myocardial infarction (NSTEMI) (Acute) 07/2021 [facility] [place] stents to RCA and cx LAD disease not intervened on. Social History Smoking/Tobacco Use Status: Current-Occasional Tobacco Type: cigarettes Years smoked: 3 Smoking risk assessment performed?: Yes Alcohol Intake: current Alcohol Intake frequency: 0-2 drinks per day Alcohol type: wine Drug use: Never Substance use type: does not use Details: drinks a glass of wine each day Housing: house Do you feel safe at home: Yes Do you feel safe in your relationship?: Yes
[2022-12-30] MEDS: Metoprolol 25 MG TAB PO (08:35)
[2022-12-30] MEDS: amLODIPine 5 MG TAB PO (08:35)
[2022-12-30] MEDS: Aspirin E.C. 81 MG TABEC PO (08:36)
--- NOTE | 2022-12-30 11:28 | W.PM.DS.N ---
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 outpatient follow up (4) Diarrhea: Status: Acute Asessment and Plan: outpatient stool was positive for giardia, will continue with treatment as prescribed by pcp (5) UTI (urinary tract infection): Status: Acute Asessment and Plan: cultures pending, treated with ceftriaxone inpatient, no symptoms currently. will discharge on cefpodoxime (6) Hypomagnesemia: Status: Acute Asessment and Plan: repleted and due to gi losses (7) Hypokalemia: Status: Acute Asessment and Plan: repleted and due to gi losses (8) Essential hypertension: Status: Chronic Asessment and Plan: continue home meds (9) Hyperlipidemia: Status: Chronic Asessment and Plan: stable, continue home meds Discharge Plan Disposition Patient Disposition: Home Condition: Stable Discharge Details Reason For Visit: Abdominal pain, Acute hepatitis, Diarrhea, UTI Admit Date/Time: 12/29/22 23:10 Admit Provider: Nabeel Colon Attending Provider: Nabeel Colon Primary Care Provider: Elyssa Mi Home Meds and New Rx's Prescriptions: New cefpodoxime 200 mg tablet 200 mg PO BID Qty: 10 0RF Rx Instructions: must administer with a meal/food Continued metoprolol succinate 50 mg tablet extended release 24 hr 50 mg PO DAILY aspirin 81 mg tablet,delayed release (DR/EC) 81 mg PO DAILY nitroglycerin 0.4 mg tablet, sublingual 0.4 mg sublingual Q5 MIN PRN X3 PRN rosuvastatin 20 mg tablet 20 mg PO HS amlodipine [Norvasc] 5 mg tablet 5 mg PO DAILY Patient Comments: Take 1 tablet by mouth once a day Discharge Instructions Instructions: Giardiasis (DC), Urinary Tract Infection in Women (DC) Additional Instructions: continue your tinidazole as previous directed. see primary care provider for follow up on cat scan results of your liver. increase diet as tolerated. drink 6-8 glasses of glasses of water daily to stay well hydrated. Stand Alone Forms: Nursing Discharge Form Referrals: Elyssa Mi [Primary Care Provider] - (follow up with PCP in 1-2 weeks) Activity:: Activity as Tolerated Equipment/Supplies:: No Equipment Needed Diet:: As Tolerated Discharge Orders Discharge Orders: Discharge Order (Routine); Ordered 12/30/22 Ordered By: Teresita Jamison DS: Summary Time Spent with Patient providing and/or coordinating discharge services: Less than 30 minutes Status at Discharge Functional status at discharge: independent ambulation Overall status at discharge: patient is progressing back to baseline Mental Status: mental status grossly normal Speech and Movement: speech and movement normal Mood: congruent mood Affect: normal affect Exam Psych Mental Status: mental status grossly normal Speech and Movement: speech and movement normal Mood: congruent mood Affect: normal affect DS: Data Vitals/I&O Vitals and I&O: Vital Signs Temperature 36.7 C 12/30/22 11:03 Temperature Source Tympanic 12/30/22 11:03 Pulse 73 12/30/22 11:03 Pulse Rhythm Regular 12/30/22 08:15 Respiratory Rate 16 12/30/22 11:03 Respiratory Effort Normal, Non-Labored 12/30/22 08:15 Respiratory Depth Normal 12/30/22 08:15 Respiratory Pattern Normal 12/30/22 08:15 Blood Pressure 132/73 12/30/22 11:03 Blood Pressure Mean 69 12/30/22 00:01 Blood Pressure Position Sitting 12/29/22 18:43 Pulse Oximetry 95 12/30/22 11:03 Oxygen Delivery Method Room Air 12/30/22 11:03 Oxygen Flow Rate 0 12/30/22 11:03 Pain Level 0 12/30/22 11:03 Intake & Output 12/29/22 12/29/22 12/30/22 11:59 23:59 11:59 Intake Total 1050 / 1050 50 / 50 Balance 1050 / 1050 50 / 50 Weight 63.503 kg 63.8 kg Intake: IV 1050 / 1050 50 / 50 Other: Stool Characteristics Liquid Emesis Description None Data Completed and Pending Labs on day of discharge: Labs from last 24 hours 12/30/22 12/30/22 12/30/22 05:30 05:30 05:30 WBC 6.91 RBC 4.11 Hgb 12.9 D Hct 37.0 MCV 90 MCH 31.4 MCHC 34.9 RDW 12.8 Plt Count 213 MPV 10.6 Immature Gran % Neutrophils % Lymphocytes % Monocytes % Eosinophils % Basophils % Nucleated RBC % Absolute Neutrophils Absolute Lymphocytes Absolute Monocytes Absolute Eosinophils Absolute Basophils PT 11.7 H INR 1.1 APTT Sodium 139 Potassium 3.6 Chloride 105 Carbon Dioxide 21.3 Anion Gap 12.7 H BUN 8 Creatinine 0.6 Est GFR (CKD-EPI 2020) 87.91 Glucose 58 L Calcium 7.8 L Magnesium 2.3 Total Bilirubin 0.4 AST 192 H ALT 248 H Alkaline Phosphatase 427 H Total Protein 5.4 L Albumin 2.4 L Lipase TSH Free T4 Urine Color Urine Clarity Urine pH Ur Specific [place] Urine Protein Urine Ketones Urine Blood Urine Nitrite Urine Bilirubin Urine Urobilinogen Ur Leukocyte Esterase Urine RBC Urine WBC Ur Epithelial Cells Urine Crystals Urine Bacteria Urine Casts Urine Mucus Ur Culture Indicated? Urine Glucose Stool Campylobacter PCR Stl C.difficile Tox PCR Stool Salmonella PCR Stool Shigella PCR Acetaminophen WEI Titer WEI Titer 2 WEI Titer 3 WEI Interpretation Anti-Smooth Muscle Ab COVID-19 Source SARS-CoV-2 (PCR) Hepatitis A IgM Ab Hep Bs Antigen Hep B Core Total Ab Hepatitis C Antibody Influenza Type A (PCR) Influenza Type B (PCR) RSV (PCR) Shiga Toxin (PCR) 12/29/22 12/29/22 12/29/22 23:40 23:28 19:35 WBC RBC Hgb Hct MCV MCH MCHC RDW Plt Count MPV Immature Gran % Neutrophils % Lymphocytes % Monocytes % Eosinophils % Basophils % Nucleated RBC % Absolute Neutrophils Absolute Lymphocytes Absolute Monocytes Absolute Eosinophils Absolute Basophils PT INR APTT Sodium Potassium Chloride Carbon Dioxide Anion Gap BUN Creatinine Est GFR (CKD-EPI 2020) Glucose Calcium Magnesium Total Bilirubin AST ALT Alkaline Phosphatase Total Protein Albumin Lipase TSH Free T4 Urine Color Urine Clarity Urine pH Ur Specific [place] Urine Protein Urine Ketones Urine Blood Urine Nitrite Urine Bilirubin Urine Urobilinogen Ur Leukocyte Esterase Urine RBC Urine WBC Ur Epithelial Cells Urine Crystals Urine Bacteria Urine Casts Urine Mucus Ur Culture Indicated? Urine Glucose Stool Campylobacter PCR Stl C.difficile Tox PCR Cancelled Stool Salmonella PCR Stool Shigella PCR Acetaminophen WEI Titer Pending WEI Titer 2 Pending WEI Titer 3 Pending WEI Interpretation Pending Anti-Smooth Muscle Ab Pending COVID-19 Source SARS-CoV-2 (PCR) Hepatitis A IgM Ab Pending Hep Bs Antigen Pending Hep B Core Total Ab Pending Hepatitis C Antibody Pending Influenza Type A (PCR) Influenza Type B (PCR) RSV (PCR) Shiga Toxin (PCR) 12/29/22 12/29/22 12/29/22 19:35 19:35 19:35 WBC 10.76 RBC 5.14 Hgb 15.7 Hct 45.7 MCV 89 MCH 30.5 MCHC 34.4 RDW 12.5 Plt Count 272 MPV 9.7 Immature Gran % 0.4 Neutrophils % 79.6 Lymphocytes % 9.9 Monocytes % 7.7 Eosinophils % 1.7 Basophils % 0.7 Nucleated RBC % 0.0 Absolute Neutrophils 8.57 H Absolute Lymphocytes 1.07 L Absolute Monocytes 0.83 H Absolute Eosinophils 0.18 Absolute Basophils 0.07 PT 12.0 H INR 1.2 H APTT 27.0 Sodium Potassium Chloride Carbon Dioxide Anion Gap BUN Creatinine Est GFR (CKD-EPI 2020) Glucose Calcium Magnesium Total Bilirubin AST ALT Alkaline Phosphatase Total Protein Albumin Lipase TSH Free T4 Urine Color Urine Clarity Urine pH Ur Specific [place] Urine Protein Urine Ketones Urine Blood Urine Nitrite Urine Bilirubin Urine Urobilinogen Ur Leukocyte Esterase Urine RBC Urine WBC Ur Epithelial Cells Urine Crystals Urine Bacteria Urine Casts Urine Mucus Ur Culture Indicated? Urine Glucose Stool Campylobacter PCR Stl C.difficile Tox PCR Stool Salmonella PCR Stool Shigella PCR Acetaminophen < 2 WEI Titer WEI Titer 2 WEI Titer 3 WEI Interpretation Anti-Smooth Muscle Ab COVID-19 Source SARS-CoV-2 (PCR) Hepatitis A IgM Ab Hep Bs Antigen Hep B Core Total Ab Hepatitis C Antibody Influenza Type A (PCR) Influenza Type B (PCR) RSV (PCR) Shiga Toxin (PCR) 12/29/22 12/29/22 12/29/22 19:35 19:35 19:30 WBC RBC Hgb Hct MCV MCH MCHC RDW Plt Count MPV Immature Gran % Neutrophils % Lymphocytes % Monocytes % Eosinophils % Basophils % Nucleated RBC % Absolute Neutrophils Absolute Lymphocytes Absolute Monocytes Absolute Eosinophils Absolute Basophils PT INR APTT Sodium 138 Potassium 3.1 L Chloride 102 Carbon Dioxide 26.2 Anion Gap 9.8 BUN 13 Creatinine 1.0 Est GFR (CKD-EPI 2020) 55.21 Glucose 105 Calcium 8.6 Magnesium 1.7 L Total Bilirubin 0.7 AST 383 H ALT 388 H Alkaline Phosphatase 592 H Total Protein 6.8 Albumin 3.1 L Lipase < 10 L TSH 4.15 H Free T4 1.34 Urine Color Urine Clarity Urine pH Ur Specific [place] Urine Protein Urine Ketones Urine Blood Urine Nitrite Urine Bilirubin Urine Urobilinogen Ur Leukocyte Esterase Urine RBC Urine WBC Ur Epithelial Cells Urine Crystals Urine Bacteria Urine Casts Urine Mucus Ur Culture Indicated? Urine Glucose Stool Campylobacter PCR Pending Stl C.difficile Tox PCR Stool Salmonella PCR Pending Stool Shigella PCR Pending Acetaminophen WEI Titer WEI Titer 2 WEI Titer 3 WEI Interpretation Anti-Smooth Muscle Ab COVID-19 Source Nasopharynx SARS-CoV-2 (PCR) Negative Hepatitis A IgM Ab Hep Bs Antigen Hep B Core Total Ab Hepatitis C Antibody Influenza Type A (PCR) Negative Influenza Type B (PCR) Negative RSV (PCR) Negative Shiga Toxin (PCR) Pending 12/29/22 12/29/22 19:30 19:30 WBC RBC Hgb Hct MCV MCH MCHC RDW Plt Count MPV Immature Gran % Neutrophils % Lymphocytes % Monocytes % Eosinophils % Basophils % Nucleated RBC % Absolute Neutrophils Absolute Lymphocytes Absolute Monocytes Absolute Eosinophils Absolute Basophils PT INR APTT Sodium Potassium Chloride Carbon Dioxide Anion Gap BUN Creatinine Est GFR (CKD-EPI 2020) Glucose Calcium Magnesium Total Bilirubin AST ALT Alkaline Phosphatase Total Protein Albumin Lipase TSH Free T4 Urine Color Yellow Urine Clarity Cloudy Urine pH 5.5 Ur Specific [place] >= 1.030 H Urine Protein 30 H Urine Ketones 15 H Urine Blood Moderate H Urine Nitrite Positive H Urine Bilirubin Moderate H Urine Urobilinogen 0.2 Ur Leukocyte Esterase Small H Urine RBC 5-10 H Urine WBC 10-20 H Ur Epithelial Cells Many Urine Crystals Negative Urine Bacteria Moderate Urine Casts Negative Urine Mucus Moderate Ur Culture Indicated? No/Sq. Contamination Urine Glucose Negative Stool Campylobacter PCR Stl C.difficile Tox PCR Negative Stool Salmonella PCR Stool Shigella PCR Acetaminophen WEI Titer WEI Titer 2 WEI Titer 3 WEI Interpretation Anti-Smooth Muscle Ab COVID-19 Source SARS-CoV-2 (PCR) Hepatitis A IgM Ab Hep Bs Antigen Hep B Core Total Ab Hepatitis C Antibody Influenza Type A (PCR) Influenza Type B (PCR) RSV (PCR) Shiga Toxin (PCR) 12/29/22 22:46 Blood Blood Culture - Pending 12/29/22 22:38 Blood Blood Culture - Pending 12/29/22 21:05 Urine - Clean Catch Urine Culture - Pending Preliminary micro results at discharge 12/29/22 22:46 Blood Culture - Pending Blood 12/29/22 22:38 Blood Culture - Pending Blood 12/29/22 21:05 Urine Culture - Pending Urine - Clean Catch PFSH All Active Problems (Updated 12/30/22 @ 06:50 by Nabeel Colon) Hypokalemia (Acute) Hypomagnesemia (Acute) Diarrhea (Acute) Abdominal pain (Acute) Right upper quadrant abdominal pain (Acute) UTI (urinary tract infection) (Acute) Acute hepatitis (Acute) Elevated LFTs (Acute) Hepatic cyst (Chronic) Intrahepatic bile duct dilation (Chronic) Hyperlipidemia (Chronic) CAD (coronary artery disease) (Chronic) Essential hypertension (Chronic) Non-ST elevation myocardial infarction (NSTEMI) (Acute) 07/2021 [facility] [place] to RCA and cx LAD disease not intervened on. Social History Smoking/Tobacco Use Status: Current-Occasional Tobacco Type: cigarettes Years smoked: 3 Smoking risk assessment performed?: Yes Alcohol Intake: current Alcohol Intake frequency: 0-2 drinks per day Alcohol type: wine Drug use: Never Substance use type: does not use Details: drinks a glass of wine each day Housing: house Do you feel safe at home: Yes Do you feel safe in your relationship?: Yes Time Spent with Patient Time Spent with Patient: <45 minutes Time was spent: preparing to see the patient(eg.review tests), obtaining and/or reviewing separately otained hiistory, ordering medications,tests, procedures, indepentently interpreting results and counseling the patient
--- NOTE | 2022-12-30 12:32 | PDOC.CMDIS ---
Date of service: 12/30/22 Time of Service: 12:32 LACE Index Scoring Tool Questions: Length of Stay (in days): 1 Was the patient admitted via the E.D.?: Yes E.D. Visits: 3 Answers: Total Score: 7 Risk of Readmission: Low Risk Care Management Discharge Plan Reason for Hospitalization: Abdominal Pain Discharge Plan: Haylie is discharged home on PO antibiotics. She is driven via private vehicle with family. She will follow up with community providers and her discharge plan of care as instructed. No new services are ordered prior to discharge. Patient/Family Education Needs: Review discharge instructions, limitations, medications an plan to follow up with community providers. Discuss ask me three and goals of self care.
[2022-12-30 20:36] LABS: Campylobacter PCR Negative (Negative); Salmonella PCR Negative (Negative); Shiga Toxin PCR Negative (Negative); Shigella/Enteroinvasive Ecoli Negative (Negative)
[2022-12-31 12:18] LABS: Hepatitis A Antibody IgM Negative (Negative); Hepatitis B Core Antibody Negative (Negative); Hepatitis B surface Ag Negative (Negative); Hepatitis C Ab w Rflx HCV PCR Negative (Negative)
[2023-01-01 11:33] LABS: Smooth Muscle Ab Screen Negative (Negative)
[2023-01-02 14:11] LABS: ANA Interpretation Negative (Negative)
== END 2022-12-30 13:00 | disposition home or self-care (01) | DRG 442 ==
LOC: ER 23:54 → MS 12-30 00:21
PROVIDERS: Emergency Medicine; Admitting Provider Family Medicine; Emergency Provider Emergency Medicine; PCP Nurse Practitioner Family; Visit Provider Family Medicine
DX: B17.9 Acute viral hepatitis, unspecified (principal); A07.1 Giardiasis [lambliasis]; N39.0 Urinary tract infection, site not specified; I25.10 Atherosclerotic heart disease of native coronary artery without angina pectoris; E78.5 Hyperlipidemia, unspecified; I10 Essential (primary) hypertension; I25.2 Old myocardial infarction; F17.210 Nicotine dependence, cigarettes, uncomplicated; F10.90 Alcohol use, unspecified, uncomplicated; E88.09 Other disorders of plasma-protein metabolism, not elsewhere classified; K76.89 Other specified diseases of liver; K91.5 Postcholecystectomy syndrome; E83.42 Hypomagnesemia; E87.6 Hypokalemia; Z95.5 Presence of coronary angioplasty implant and graft
CPT/HCPCS: 36415; 36416; 80053; 82962; 83690; 85027; 86704; 86709; 86803; 87040; 87340; 87493; 87505; 87637; 96365; 96366; 96367; 96372; 99285; 71046; 74177; 80329; 81003; 81015; 83735; 84439; 84443; 85025; 85610; 85730; 86038; 86255; 87086; 99223; 99239; J1644; J2405; J3490

== ENCOUNTER 2023-01-04 15:09 | Outpatient (REF) | payer MEDICARE, BC, SELFPAY ==
[2023-01-04 20:39] LABS: Abs Immature Grans 0.03 10^3/uL (0.0-0.06); Absolute Basophil Count 0.05 10^3/uL (0.0-0.2); Absolute Eosinophil Count 0.17 10^3/uL (0.0-0.7); Absolute Lymphocyte Count 1.93 10^3/uL (1.2-3.4); Absolute Monocyte Count 0.63 10^3/uL (0.1-0.8); Absolute Neutrophil Count 5.67 10^3/uL (1.2-6.7); Basophils % 0.6; HCT 44.6 % (36.0-46.0); HGB 15.2 g/dL (11.2-15.7); Immature Grans % 0.4; Lymphocytes % 22.8; MCH 30.8 pg (27.0-33.0); MCHC 34.1 % (32.0-36.0); MCV 90 fL (80-95); MPV 10.2 fL (8.0-11.0); Monocytes % 7.4; Neutrophils % 66.8; Platelet Count 419 10^3/uL (130-400); RBC 4.94 10^6/uL (3.93-5.22); RDW 12.8 % (11.7-14.6); RDW-SD 42.5 fL; WBC 8.48 10^3/uL (4.4-10.8)
[2023-01-04 21:02] LABS: ALT 77 U/L (14-59); AST 42 U/L (15-37); Alkaline Phosphatase 259 U/L (46-116); Anion Gap 4.9 mmol/L (3-11); BUN 8 mg/dL (7-18); Bilirubin, Total 0.3 mg/dL (0.2-1.0); CO2 31.1 mmol/L (21.0-32.0); CREATININE 0.7 mg/dL (0.55-1.02); Calcium 9.4 mg/dL (8.5-10.1); Chloride 104 mmol/L (98-107); Glucose 130 mg/dL (74-106); Magnesium 2.3 mg/dL (1.8-2.4); Potassium 4.1 mmol/L (3.5-5.1); Sodium 140 mmol/L (136-145); Total Protein 7.2 g/dL (6.4-8.2)
== END 2023-01-04 15:10 | disposition home or self-care (01) ==
LOC: NCHCN 15:09
PROVIDERS: PCP Nurse Practitioner Family; Visit Provider Nurse Practitioner Family
DX: K75.89 Other specified inflammatory liver diseases; I10 Essential (primary) hypertension; R79.89 Other specified abnormal findings of blood chemistry
CPT/HCPCS: 80053; 83735; 85025

== ENCOUNTER → 2023-01-07 02:01 | Outpatient (CLI) | payer MEDICARE, BC, SELFPAY ==
--- NOTE | 2023-01-07 | DI.US_ITS ---
Exam(s) US ABDOMEN LIMITED EXAM: US ABDOMEN LIMITED CLINICAL HISTORY: ACUTE HEPATITIS,K75.9,ABD PAIN WITH DIARRHEA TECHNIQUE: Ultrasound abdomen performed using standard protocol. COMPARISON: CT CT ABDOMEN PELVIS W from 12/29/2022 FINDINGS: LIVER: Normal size. Normalechogenicity. Multiple cysts noted, largest in the inferior right lobe me asuring 9.6 x 8.5 x 8.8 cm. GALLBLADDER: Status post cholecystectomy. BILIARY SYSTEM: No intrahepatic or extrahepatic biliary ductal dilation. Common bile duct measures 6 millimeters RIGHT KIDNEY: Normal size. No evidence of renal calculi. No evidence of hydronephrosis. No suspicious renal mass. No cyst identified. PANCREAS: Normal where visualized. ABDOMINAL AORTA AND IVC: Visualized portions normal caliber. ASCITES: None seen. IMPRESSION: Liver cysts. Post cholecystectomy. Acute abnormality. DATA REPOSITORY:
== END ==
PROVIDERS: PCP Nurse Practitioner Family; Visit Provider Nurse Practitioner Family
DX: K91.5 Postcholecystectomy syndrome; K75.9 Inflammatory liver disease, unspecified
CPT/HCPCS: 76705

== ENCOUNTER 2023-02-27 09:06 | Emergency (ER) | payer MEDICARE, BC, SELFPAY ==
[2023-02-27] VITALS (19 sets, daily range): BP systolic 148–173; BP diastolic 70–88; PULSE 55–73; RESP 15–25; O2SAT 96
--- NOTE | 2023-02-27 09:00 | RT.EKG_ITS ---
APPROVED REPORT Exam: Resting ECG Reason for Exam: Chest pain Patient Location: E HR:69 bpm ECG Measurements Heart Rate 69 AXIS MA 205 P 18 QRSd 93 QRS -46 QT 422 T 69 QTc 453 Conclusion Sinus rhythm... V-rate 60- [address] segment or T wave abnormalities to suggest occlusive CA
--- NOTE | 2023-02-27 09:00 | DI.RAD_ITS ---
Exam(s) XR PORTABLE CHEST AP EXAM: XR PORTABLE CHEST AP CLINICAL HISTORY: chest pain TECHNIQUE: 2D digital imaging was performed of the chest. One image was obtained. An AP view was ob tained. COMPARISON: CR,XR XR CHEST 2V PA LATERAL from 12/29/2022 FINDINGS: MEDIASTINUM: Normal. HEART: Normal. PULMONARY VASCULATURE: Normal. LUNGS: Clear. PLEURAL SPACE: No pleural effusion or pneumothorax. BONE:Within normal limits for the patient's age. OTHER FINDINGS:Normal. IMPRESSION: No acute pulmonary findings. DATA REPOSITORY: RADIATION DOSE DELIVERED:
--- NOTE | 2023-02-27 09:23 | W.ED.GENAD ---
Discharge Plan Disposition Patient Disposition: Home Condition: Good Discharge Details Clinical Impression: Arm pain Primary Care Provider: Elyssa Mi ED Provider: Karis Block Home Meds and New Rx's Prescriptions: No Action metoprolol succinate 50 mg tablet extended release 24 hr 50 mg PO DAILY aspirin 81 mg tablet,delayed release (DR/EC) 81 mg PO DAILY nitroglycerin 0.4 mg tablet, sublingual 0.4 mg sublingual Q5 MIN PRN X3 PRN rosuvastatin 20 mg tablet 20 mg PO HS amlodipine [Norvasc] 5 mg tablet 5 mg PO DAILY Patient Comments: Take 1 tablet by mouth once a day Discharge Instructions Instructions: Angina (ED), Arm Pain (ED) Additional Instructions: Call your primary care doctor and 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 You should see your gas line installer supervisor in the next 48 hours. Return to the emergency department for new or worsening symptoms, including if your pain returns, you develop chest pain or difficulty breathing, feel like you are going to pass out, or if you have any other concerns. Referrals: Elyssa Mi [Primary Care Provider] - Medical Decision Making 87yo F with hx of HTN, HLD, CAD, NSTEMI, presenting for left arm pain, similar to her prior PR, onset at rest at 8pm last night and resolved just prior to arrival at the ED. No other symptoms. Given 325 of aspirin. Hypertensive, vital signs and physical exam otherwise reassuring. No pain during my assessment, LUE nontender with full active and passive pain free ROM. Would not pursue imaging. EKG NSR, appropriate intervals, no ST segment or T wave abnormalities to suggest occlusive PR. CXR independently reviewed, no focal pneumonia or pneumothorax on my view, agree with radiology read below. Labs reviewed as below, CBC & CMP reassuring with no actionable abnormalities, initial troponin negative, BNP very mildly elevated at 467. Dimer elevated; CT PE ordered and independently reviewed, no large PE on my view, agree with radiology read below. Delta troponin also negative. On reassessment she reports feeling well, denies any recurrence of pain. HEART score 5 (H1, EKG0, A2, RF2, T0), moderate risk. Given similarity of symptoms to prior PR this may potentially represent unstable angina; I discussed with Ms. 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 Strict return precautions were reviewed. Discharged home; discharge instructions including return precautions were reviewed with patient who verbalized understanding. All questions were answered and they are in full agreement with the plan. Medical Records Medical records reviewed: Yes I reviewed the patient's medical records. Medical records narrative: prior EKGs, DC summary 12/30/22 Imaging Data Radiologic Study: Imaging: X-Ray Radiologist's impression: IMPRESSION: No acute pulmonary findings. Radiologic Study #2: Imaging: CT Scan Radiologist's impression: IMPRESSION: 1. No evidence of pulmonary embolism, thoracic aortic dissection or aneurysm. 2. No acute pulmonary process. Mild dependent atelectasis is seen in the lung bases. 3. Findings were discussed with the emergency department at 11:20 a.m. on 02/27/2023. Lab Data Lab results reviewed: Yes I reviewed the patient's lab results. Labs: Laboratory Tests Range/Units 02/27/23 09:25 WBC (4.4-10.8) 10^3/uL 6.68 RBC (3.93-5.22) 10^6/uL 5.08 Hgb (11.2-15.7) g/dL 15.2 Hct (36.0-46.0) % 45.5 MCV (80-95) fL 90 MCH (27.0-33.0) pg 29.9 MCHC (32.0-36.0) % 33.4 RDW (11.7-14.6) % 13.1 Plt Count (130-400) 10^3/uL 262 MPV (8.0-11.0) fL 9.9 Immature Gran % 0.3 Neutrophils % 71.3 Lymphocytes % 18.7 Monocytes % 7.6 Eosinophils % 1.8 Basophils % 0.3 Nucleated RBC % (0.0-0.3) % 0.0 Absolute Neutrophils (1.2-6.7) 10^3/uL 4.76 Absolute Lymphocytes (1.2-3.4) 10^3/uL 1.25 Absolute Monocytes (0.1-0.8) 10^3/uL 0.51 Absolute Eosinophils (0.0-0.7) 10^3/uL 0.12 Absolute Basophils (0.0-0.2) 10^3/uL 0.02 PT (9.1-11.1) sec 10.2 INR (0.9-1.1) 1.0 APTT (23.6-32.8) sec 26.1 D-Dimer (<500) ng/mlFEU 866 H Sodium (136-145) mmol/L 142 Potassium (3.5-5.1) mmol/L 3.5 Chloride (98-107) mmol/L 105 Carbon Dioxide (21.0-32.0) mmol/L 25.5 Anion Gap (3-11) mmol/L 11.5 H BUN (7-18) mg/dL 16 Creatinine (0.55-1.02) mg/dL 0.7 Est GFR (CKD-EPI 2020) (mL/min/1.73m2) 84.70 Glucose (74-106) mg/dL 141 H Calcium (8.5-10.1) mg/dL 9.5 Magnesium (1.8-2.4) mg/dL 2.1 Total Bilirubin (0.2-1.0) mg/dL 0.4 AST (15-37) U/L 18 ALT (14-59) U/L 20 Alkaline Phosphatase (46-116) U/L 105 Troponin I (<or=60) ng/L < 50 NT-Pro-B Natriuret Pep (<300) pg/mL 467 H Total Protein (6.4-8.2) g/dL 7.6 Albumin (3.4-5.0) g/dL 3.5 HPI General Mode of arrival: ambulatory. Date/Time Provider Initiated Documentation: 02/27/23 09:12. Limitations to Documentation: no limitations. Information obtained by: patient. HPI Narrative: 87yo F with hx of HTN, HLD, CAD, NSTEMI, presenting for left arm pain. Pain started yesterday evening around 8pm and persisted all night, was present on waking this morning. Resolved by the time arrived to the ED. Pain felt similar to the pain she felt with her prior heart attack. Cannot recall any trauma, injury, or strain to her arm. She is otherwise in her usual state of health with no fevers, chills, rash, nausea, vomiting, chest pain, shortness of breath, lightheadedness, syncope, abdominal pain, LE edema, or other concerns. Related Data Home Medications Medication Instructions Recorded Confirmed amlodipine 5 mg tablet (Norvasc) 5 mg PO DAILY 07/20/21 02/27/23 aspirin 81 mg tablet,delayed 81 mg PO DAILY 08/04/21 02/27/23 release metoprolol succinate 50 mg 50 mg PO DAILY 08/04/21 02/27/23 tablet,extended release 24 hr nitroglycerin 0.4 mg sublingual 0.4 mg sublingual Q5 MIN PRN X3 PRN 08/04/21 02/27/23 tablet rosuvastatin 20 mg tablet 20 mg PO HS 08/04/21 02/27/23 Allergies Allergy/AdvReac Type Severity Reaction Status Date / Time pravastatin Allergy Mild Verified 02/27/23 09:31 simvastatin Allergy Mild Verified 02/27/23 09:31 General Stated Complaint: GenMedical NADINE: 3 Review of Systems Narrative: see HPI PFSH All Active Problems (Updated 02/27/23 @ 12:57 by Karis Block MD) Arm pain (Acute) Hypokalemia (Acute) Hypomagnesemia (Acute) Diarrhea (Acute) Abdominal pain (Acute) Right upper quadrant abdominal pain (Acute) UTI (urinary tract infection) (Acute) Acute hepatitis (Acute) Elevated LFTs (Acute) Hepatic cyst (Chronic) Intrahepatic bile duct dilation (Chronic) Hyperlipidemia (Chronic) CAD (coronary artery disease) (Chronic) Essential hypertension (Chronic) Non-ST elevation myocardial infarction (NSTEMI) (Acute) 07/2021 [facility] stents to RCA and cx LAD disease not intervened on. Medical History (Updated 02/27/23 @ 12:57 by Karis Block MD) Nail dystrophy Multiple nevi Dyspepsia Smoker Family history of breast cancer in first degree relative Osteopenia Tremor Fatigue Seborrheic keratosis Anxiety Hypertension Abdominal mass Thumb pain History of prediabetes Asymptomatic microscopic hematuria Vitamin D deficiency Neuropathy Memory impairment Shortness of breath Surgical History (Updated 12/31/22 @ 13:43 by Radha Eugene) Hx of hysterectomy, total Social History Smoking/Tobacco Use Status: Current-Occasional Tobacco Type: cigarettes Years smoked: 3 Smoking risk assessment performed?: Yes Alcohol Intake: current Alcohol Intake frequency: 0-2 drinks per day Alcohol type: wine Drug use: Never Substance use type: does not use Details: drinks a glass of wine each day Housing: house Do you feel safe at home: Yes Do you feel safe in your relationship?: Yes Exam Narrative Exam Narrative: General: Alert, well appearing, well nourished, in no acute distress. Head: Normocephalic, atraumatic Neck: Trachea midline, Neck supple. Cardiac: RRR, no murmurs appreciated Resp: No respiratory distress. CTAB. Abd: Soft, non-distended, nontender : No suprapubic tenderness. Extremities: No deformities. No peripheral edema. Neurologic: GCS 15. Moves all extremities freely against gravity Course Vital Signs Vital signs: Vital Signs Pulse 73 02/27/23 09:13 Respiratory Rate 25 H 02/27/23 09:13 Blood Pressure 173/88 H 02/27/23 09:13 Pulse Oximetry 96 02/27/23 09:13 Pulse 73 02/27/23 09:13 Respiratory Rate 25 H 02/27/23 09:13 Blood Pressure 173/88 H 02/27/23 09:13 Blood Pressure Position Sitting 02/27/23 09:13 Pulse Oximetry 96 02/27/23 09:13 Oxygen Delivery Method Room Air 02/27/23 09:13 Oxygen Flow Rate 0 02/27/23 09:13 Pain Level 5 02/27/23 09:13
[2023-02-27] MEDS: Aspirin 81 MG CHEW 324 MG CH (09:32)
[2023-02-27 09:37] LABS: Abs Immature Grans 0.02 10^3/uL (0.0-0.06); Absolute Basophil Count 0.02 10^3/uL (0.0-0.2); Absolute Eosinophil Count 0.12 10^3/uL (0.0-0.7); Absolute Lymphocyte Count 1.25 10^3/uL (1.2-3.4); Absolute Monocyte Count 0.51 10^3/uL (0.1-0.8); Absolute Neutrophil Count 4.76 10^3/uL (1.2-6.7); Basophils % 0.3; Eosinophils % 1.8; HCT 45.5 % (36.0-46.0); HGB 15.2 g/dL (11.2-15.7); Immature Grans % 0.3; Lymphocytes % 18.7; MCH 29.9 pg (27.0-33.0); MCHC 33.4 % (32.0-36.0); MCV 90 fL (80-95); MPV 9.9 fL (8.0-11.0); Monocytes % 7.6; Neutrophils % 71.3; Platelet Count 262 10^3/uL (130-400); RBC 5.08 10^6/uL (3.93-5.22); RDW 13.1 % (11.7-14.6); RDW-SD 43.4 fL; WBC 6.68 10^3/uL (4.4-10.8)
[2023-02-27 09:46] LABS: PTT Activated 26.1 sec (23.6-32.8); Prothrombin Time 10.2 sec (9.1-11.1)
[2023-02-27 09:55] LABS: ALT 20 U/L (14-59); AST 18 U/L (15-37); Albumin 3.5 g/dL (3.4-5.0); Alkaline Phosphatase 105 U/L (46-116); Anion Gap 11.5 mmol/L (3-11); BUN 16 mg/dL (7-18); Bilirubin, Total 0.4 mg/dL (0.2-1.0); CO2 25.5 mmol/L (21.0-32.0); CREATININE 0.7 mg/dL (0.55-1.02); Calcium 9.5 mg/dL (8.5-10.1); Chloride 105 mmol/L (98-107); Glucose 141 mg/dL (74-106); Magnesium 2.1 mg/dL (1.8-2.4); NT-proBNP 467 pg/mL (<300); Potassium 3.5 mmol/L (3.5-5.1); Sodium 142 mmol/L (136-145); Total Protein 7.6 g/dL (6.4-8.2); Troponin I < 50 ng/L (<or=60)
--- NOTE | 2023-02-27 10:00 | DI.CT_ITS ---
Exam(s) CT CHEST PE CTA EXAM: CT CHEST PE CTA CLINICAL HISTORY: arm pain, elevated dimer. TECHNIQUE: Imaging Protocol: Axial CT angiography was performed with multi-slice acquisition and mu lti-planar and/or 3D reconstructions. CONTRAST MATERIAL: Intravenous: Omnipaque 350 contrast volume:100 mL COMPARISON: CT CT CHEST W from 06/29/[address] ABDOMEN PELVIS W from 12/29/2022 FINDINGS: The examination is limited due to patient motion artifact. Tracheobronchial tree: Patent where visualized. Pulmonary parenchyma: No consolidation or dominant measurable mass. No architectural distortion. Mild dependent atelectasis. Pulmonary Arteries: No evidence of filling defect to suggest pulmonary emboli. Mediastinum and Mine: No dominant adenopathy or fluid collection. The esophagus is unremarkable. Sm all hiatal hernia. Visualized thyroid gland: Unremarkable. Pleura: No effusion or pneumothorax. Heart: The heart is not dilated. Coronary artery calcification is present. No pericardial effusion. Aorta: Thoracic aorta non-dilated. No evidence of dissection. Atherosclerosis. Upper abdomen: Stable hepatic cysts. Soft tissues: Unremarkable. Bones: Within normal limits for the patient's age. IMPRESSION: 1. No evidence of pulmonary embolism, thoracic aortic dissection or aneurysm. 2. No acute pulmonary process. Mild dependent atelectasis is seen in the lung bases. 3. Findings were discussed with the emergency department at 11:20 a.m. on 02/27/2023. RADIATION DOSE DELIVERED: Total DLP DATA REPOSITORY: All CT scans at this facility are submitted to the National Radiology Data Registry (NRDR) Dose Index Registry (DIR) with the [employer] (ACR). RADIATION OPTIMIZATION: All CT scans at this facility use at least one of these dose optimization te chniques: automated exposure control; mA and/or kV adjustment per patient size (includes targeted exa ms where dose is matched to clinical indication); or iterative reconstruction.
[2023-02-27 10:03] LABS: D-Dimer 866 ng/mlFEU (<500)
[2023-02-27] MEDS: Normal Saline - Diluent 50 ML VIAL IJ (10:49)
[2023-02-27] MEDS: Omnipaque 350 MG/ML 500 ML BTL-Imaging package IJ (10:50)
[2023-02-27 12:47] LABS: Troponin I < 50 ng/L (<or=60)
--- NOTE | 2023-02-27 12:57 | NUR.NOTE ---
Nursing Note: PT needs follow up RANDY with [facility] Cardiology for chest pain. Aicha, ED
== END 2023-02-27 13:34 | disposition home or self-care (01) ==
PROVIDERS: Emergency Provider Student in an Organized Health Care Education/Training Program; PCP Nurse Practitioner Family
DX: M79.602 Pain in left arm (principal); R06.02 Shortness of breath; I10 Essential (primary) hypertension; E78.5 Hyperlipidemia, unspecified; I25.10 Atherosclerotic heart disease of native coronary artery without angina pectoris; I25.2 Old myocardial infarction
CPT/HCPCS: 36415; 71275; 80053; 93005; 99285; 71045; 83735; 83880; 84484; 85025; 85379; 85610; 85730; 93010; 99284

== ENCOUNTER → 2023-03-05 09:29 | Outpatient (BNVA) | payer MEDICARE, BC, SELFPAY | PROVIDERS: PCP Nurse Practitioner Family; Referring Provider Nurse Practitioner Family; Visit Provider Internal Medicine Cardiovascular Disease | DX: I25.10 Atherosclerotic heart disease of native coronary artery without angina pectoris (principal); I10 Essential (primary) hypertension | CPT/HCPCS: 99214 ==

== ENCOUNTER 2023-05-10 21:21 | Outpatient (REF) | payer MEDICARE, BC, SELFPAY ==
[2023-05-10 21:14] LABS: Abs Immature Grans 0.03 10^3/uL (0.0-0.06); Absolute Basophil Count 0.04 10^3/uL (0.0-0.2); Absolute Eosinophil Count 0.17 10^3/uL (0.0-0.7); Absolute Lymphocyte Count 1.63 10^3/uL (1.2-3.4); Absolute Monocyte Count 0.62 10^3/uL (0.1-0.8); Absolute Neutrophil Count 5.06 10^3/uL (1.2-6.7); Basophils % 0.5; Eosinophils % 2.3; HCT 43.8 % (36.0-46.0); Immature Grans % 0.4; Lymphocytes % 21.6; MCH 30.1 pg (27.0-33.0); MCHC 34.2 % (32.0-36.0); MCV 88 fL (80-95); MPV 10.1 fL (8.0-11.0); Monocytes % 8.2; Platelet Count 344 10^3/uL (130-400); RBC 4.99 10^6/uL (3.93-5.22); RDW 12.9 % (11.7-14.6); RDW-SD 41.8 fL; WBC 7.55 10^3/uL (4.4-10.8)
[2023-05-10 21:31] LABS: ALT 20 U/L (14-59); AST 18 U/L (15-37); Albumin 3.1 g/dL (3.4-5.0); Alkaline Phosphatase 105 U/L (46-116); Anion Gap 9.7 mmol/L (3-11); BUN 13 mg/dL (7-18); Bilirubin, Total 0.2 mg/dL (0.2-1.0); CO2 26.3 mmol/L (21.0-32.0); CREATININE 0.7 mg/dL (0.55-1.02); Calcium 9.5 mg/dL (8.5-10.1); Chloride 105 mmol/L (98-107); Glucose 96 mg/dL (74-106); Potassium 4.1 mmol/L (3.5-5.1); Sodium 141 mmol/L (136-145); Total Protein 7.5 g/dL (6.4-8.2)
[2023-05-10 22:42] LABS: Vitamin D 25 Total 64.8 ng/mL (30-100)
[2023-05-13 10:26] LABS: TSH (W/Ref FT4) 2.86 uIU/mL (0.36-3.74)
== END 2023-05-10 21:22 | disposition home or self-care (01) ==
LOC: NCHCN 21:21
PROVIDERS: PCP Nurse Practitioner Family; Visit Provider Nurse Practitioner Family
DX: E03.9 Hypothyroidism, unspecified (principal); R73.03 Prediabetes; M85.88 Other specified disorders of bone density and structure, other site; K76.89 Other specified diseases of liver
CPT/HCPCS: 80053; 82306; 83036; 84443; 85025

== ENCOUNTER → 2023-05-14 03:06 | Outpatient (CLI) | payer MEDICARE, BC, SELFPAY ==
--- NOTE | 2023-05-14 | DI.US_ITS ---
Exam(s) US ABDOMEN LIMITED EXAM: US ABDOMEN LIMITED CLINICAL HISTORY: LIVER DISEASE,K76.9 TECHNIQUE: Ultrasound abdomen performed using standard protocol. CT CT ABDOMEN PELVIS W from 12/29/2022 US US ABDOMEN LIMITED from 01/07/[address] CHEST PE CTA from 02/27/2023 FINDINGS: PANCREAS: Normal where visualized. LIVER: Normal echogenicity. There is again seen a cyst in the inferior right lobe measuring 9.0 x 7. 4 x 8.2 cm. There is also again seen a cyst in the left lobe of the liver measuring 5.4 x 2.7 x 3.1 cm. No solid hepatic masses. Hepatopetal flow in the Portal Vein. The liver measures in 13.7 cm andrea gth. GALLBLADDER:Status post cholecystectomy. BILIARY SYSTEM: Common bile duct measures < 7 mm. No intrahepatic biliary ductal dilation. RIGHT KIDNEY: Kidney is normal in size. No evidence of renal calculi. No evidence of hydronephrosis. No renal mass or cyst identified. ASCITES: None seen. IMPRESSION: 1. Stable hepatic cysts. 2. Status post cholecystectomy. No significant biliary ductal dilatation. DATA REPOSITORY:
== END ==
PROVIDERS: PCP Nurse Practitioner Family; Visit Provider Nurse Practitioner Family
DX: K76.9 Liver disease, unspecified (principal)
CPT/HCPCS: 76705

== ENCOUNTER → 2023-05-22 09:37 | Outpatient (BNVA) | payer MEDICARE, BC, SELFPAY | PROVIDERS: PCP Nurse Practitioner Family; Referring Provider Nurse Practitioner Family; Visit Provider Psychiatry & Neurology Neurology | DX: R41.3 Other amnesia (principal); G25.0 Essential tremor; I49.9 Cardiac arrhythmia, unspecified | CPT/HCPCS: 99215 ==

== ENCOUNTER → 2023-05-30 00:49 | Outpatient (CLI) | payer MEDICARE, BC, SELFPAY ==
--- NOTE | 2023-05-30 13:45 | DI.MRI_ITS ---
Exam(s) MR BRAIN WO EXAM: MR BRAIN WO CLINICAL HISTORY: Memory loss,R41.3 TECHNIQUE: Multiplanar multisequence MRI of the brain was performed. COMPARISON: No exams were available for comparison FINDINGS: VENTRICLES AND EXTRA AXIAL SPACES: Ventricles normal in size and morphology for the patient's age. L eft anterior temporal fossa arachnoid cyst. MIDLINE SHIFT: None. CEREBRAL PARENCHYMA: No focus of restricted diffusion to suggest acute infarct. No space-occupying le jasmin identified. Moderate atrophy. prominent foci of high signal in the white matter consistent wit h sequela of chronic microvascular disease. HEMORRHAGE: None. BRAINSTEM/CEREBELLUM: Normal. VISUALIZED PARANASAL SINUSES/MASTOIDS:Sinus clear. The some fluid in the both mastoid air cells Vasculature: Normal flow void. PITUITARY GLAND: Unremarkable. ORBITS: Unremarkable. IMPRESSION: Atrophy and white matter changes of small vessel disease. DATA REPOSITORY:
== END ==
PROVIDERS: PCP Nurse Practitioner Family; Visit Provider Psychiatry & Neurology Neurology
DX: I67.82 Cerebral ischemia (principal)
CPT/HCPCS: 70551

== ENCOUNTER → 2023-06-13 10:35 | Outpatient (BNVA) | payer MEDICARE, BC, SELFPAY | PROVIDERS: PCP Nurse Practitioner Family; Referring Provider Nurse Practitioner Family; Visit Provider Psychiatry & Neurology Neurology | DX: R41.3 Other amnesia (principal); G25.0 Essential tremor; I63.81 Other cerebral infarction due to occlusion or stenosis of small artery; I49.9 Cardiac arrhythmia, unspecified | CPT/HCPCS: 99214 ==

== ENCOUNTER → 2023-06-14 09:48 | Outpatient (BNVA) | payer MEDICARE, BC, SELFPAY | PROVIDERS: PCP Nurse Practitioner Family; Referring Provider Nurse Practitioner Family; Visit Provider Internal Medicine Cardiovascular Disease | DX: I63.81 Other cerebral infarction due to occlusion or stenosis of small artery (principal); I25.10 Atherosclerotic heart disease of native coronary artery without angina pectoris | CPT/HCPCS: 99213 ==

== ENCOUNTER 2023-06-20 12:48 | Outpatient (CLI) | payer MEDICARE, BC, SELFPAY | END 2023-06-20 12:49 | disposition home or self-care (01) | PROVIDERS: PCP Nurse Practitioner Family; Visit Provider Nurse Practitioner Family | DX: I63.81 Other cerebral infarction due to occlusion or stenosis of small artery (principal) | CPT/HCPCS: 93246 ==

== ENCOUNTER → 2023-06-24 02:29 | Outpatient (CLI) | payer MEDICARE, BC, SELFPAY ==
--- NOTE | 2023-06-24 10:23 | DI.US_ITS ---
Exam(s) US CAROTID EXAM: US CAROTID CLINICAL HISTORY: Left lacunar infarct, CEREBROVASCULAR ACCIDENT, I63.9. TECHNIQUE: Ultrasound carotids performed using grayscale, color-flow, and spectral Doppler imaging. COMPARISON: No exams were available for comparison FINDINGS: RIGHT CAROTID ARTERY: Plaque: Minimal calcific plaque at the bulb.. Velocity elevation: None. LEFT CAROTID ARTERY: Plaque: None Velocity elevation: None. VERTEBRAL ARTERIES: Antegrade flow. Measurements: R Bulb: 36.7cm/s PS / 5.6cm/s ED R CCA: 59.5cm/s PS / 16.7cm/s ED R ECA: 95.4cm/s PS / 7.2cm/s ED R ICA Prox: 76.2cm/s PS / 18.1cm/s ED R ICA Mid: 61.7cm/s PS / 18.1cm/s ED R ICA Distal: 62.9cm/s PS /18.1cm/s ED R Vert: 49.6cm/s PS / 16.8cm/s ED R SVR: 1.3 R DVR: 1.1 L Bulb: 54.5cm/s PS / 15.3cm/s ED L CCA: 60.5cm/s PS / 16.5cm/s ED L ECA: 72.4cm/s PS / 4.6cm/s ED L ICA Prox: 56.6cm/s PS / 11.7cm/s ED L ICA Mid: 49.2cm/s PS / 16.3cm/s ED L ICA Distal: 52.7cm/s PS / 16.3cm/s ED L Vert: 39.2cm/s PS / 7.5cm/s ED L SVR: 0.9 L DVR: 0.7 IMPRESSION: No evidence for hemodynamically significant carotid stenosis. Criteria for Carotid Stenosis: Normal: ICA PSV <125 cm/s no plaque or intimal thickening is visible. <50% stenosis: ICA PSV <125 cm/s and plaque or intimal thickening is visible. 50-69% stenosis: ICA PSV is 125-250 cm/s and plaque is visible. >70% stenosis to near occlusion: ICA PSV >250 cm/s with visible plaque and luminal narrowing. DATA REPOSITORY:
== END ==
PROVIDERS: PCP Nurse Practitioner Family; Visit Provider Psychiatry & Neurology Neurology
DX: I63.9 Cerebral infarction, unspecified (principal)
CPT/HCPCS: 93880

== ENCOUNTER 2023-07-11 07:43 | Outpatient (CLI) | payer MEDICARE, BC, SELFPAY ==
--- NOTE | 2023-07-11 10:45 | W.CARDEVENT ---
Date of service: 07/11/23 Time of Service: 10:45 Cardiac Event Recorder Referring Provider:: Luly Queen Indications:: Cerebral infarction Cardiac Event Note: This is a cardiac event monitor. Patient was monitored for 10 days and 2 hours Rhythm throughout is sinus. Average heart rate was 67. Minimum was 43, maximum 110 There were rare isolated atrial and ventricular ectopic beats There were a total of 4 self-limited atrial runs. The longest of these was 10 beats in duration There was no atrial fibrillation, no high-grade block, no pauses greater than 3 seconds No patient symptoms were reported
== END 2023-07-11 07:44 | disposition home or self-care (01) ==
LOC: CARDOPNVT 07:43
PROVIDERS: PCP Nurse Practitioner Family; Visit Provider Internal Medicine Cardiovascular Disease
DX: I63.81 Other cerebral infarction due to occlusion or stenosis of small artery (principal); I49.1 Atrial premature depolarization
CPT/HCPCS: 93248

== ENCOUNTER 2023-07-29 16:44 | Outpatient (REF) | payer MEDICARE, BC, SELFPAY ==
[2023-07-29 17:17] LABS: COMMENT (LAB VIEW ONLY) 27.57 mg/dL; Microalb ug/mg Crea 40.3 ug/mg Cr
== END 2023-07-29 16:45 | disposition home or self-care (01) ==
LOC: NCHCN 16:44
PROVIDERS: PCP Nurse Practitioner Family; Visit Provider Nurse Practitioner Family
DX: I10 Essential (primary) hypertension (principal)
CPT/HCPCS: 82043; 82570

== ENCOUNTER → 2023-08-29 13:15 | Outpatient (BNVA) | payer MEDICARE, BC, SELFPAY | PROVIDERS: PCP Nurse Practitioner Family; Referring Provider Nurse Practitioner Family; Visit Provider Psychiatry & Neurology Neurology | DX: G25.0 Essential tremor (principal); I63.81 Other cerebral infarction due to occlusion or stenosis of small artery; R41.3 Other amnesia | CPT/HCPCS: 99213 ==

== ENCOUNTER 2023-10-04 13:02 | Outpatient (CLI) | payer MEDICARE, BC, SELFPAY ==
[2023-10-04 13:06] LABS: Abs Immature Grans 0.02 10^3/uL (0.0-0.06); Absolute Basophil Count 0.04 10^3/uL (0.0-0.2); Absolute Lymphocyte Count 1.83 10^3/uL (1.2-3.4); Absolute Monocyte Count 0.61 10^3/uL (0.1-0.8); Absolute Neutrophil Count 4.91 10^3/uL (1.2-6.7); Basophils % 0.5 %; Eosinophils % 2.6 %; HCT 45.2 % (36.0-46.0); HGB 15.5 g/dL (11.2-15.7); Immature Grans % 0.3 %; MCH 31.4 pg (27.0-33.0); MCHC 34.3 % (32.0-36.0); MCV 92 fL (80-95); MPV 10.2 fL (8.0-11.0); Neutrophils % 64.6 %; Platelet Count 225 10^3/uL (130-400); RBC 4.93 10^6/uL (3.93-5.22); RDW-SD 44.3 fL; WBC 7.61 10^3/uL (4.4-10.8)
[2023-10-04 13:25] LABS: PTT Activated 26.5 sec (23.6-32.8)
[2023-10-04 13:58] LABS: ALT 21 U/L (14-59); AST 18 U/L (15-37); Albumin 3.7 g/dL (3.4-5.0); Alkaline Phosphatase 101 U/L (46-116); Anion Gap 11.4 mmol/L (3-11); BUN 14 mg/dL (7-18); Bilirubin, Total 0.5 mg/dL (0.2-1.0); CO2 26.6 mmol/L (21.0-32.0); CREATININE 0.7 mg/dL (0.55-1.02); Calcium 9.5 mg/dL (8.5-10.1); Chloride 106 mmol/L (98-107); Glucose 103 mg/dL (74-106); Potassium 3.6 mmol/L (3.5-5.1); Sodium 144 mmol/L (136-145); TSH (W/Ref FT4) 3.17 uIU/mL (0.36-3.74); Total Protein 7.3 g/dL (6.4-8.2)
== END 2023-10-04 13:03 | disposition home or self-care (01) ==
LOC: LBO 13:03
PROVIDERS: PCP Nurse Practitioner Family; Visit Provider Nurse Practitioner Family
DX: R41.3 Other amnesia (principal)
CPT/HCPCS: 36415; 80053; 70450; 81003; 84443; 85025; 85730

== ENCOUNTER → 2023-10-04 13:21 | Outpatient (CLI) | payer MEDICARE, BC, SELFPAY ==
--- NOTE | 2023-10-04 | DI.CT_ITS ---
Exam(s) CT HEAD WO EXAM: CT HEAD WO CLINICAL HISTORY: AMNESIA,R41.3. TECHNIQUE: Imaging Protocol: Axial computed tomography images with coronal and sagittal reformatted images were created and reviewed COMPARISON: MR MR BRAIN WO from 05/30/2023 FINDINGS: There are no skull fractures. There is no fluid in the visualized paranasal sinuses. There is no evidence of intracranial hemorrhage, mass effect, or shift of midline structures. There are no extra-axial fluid collections. Ventricular size is unchanged. There is abundant bilateral periventricular hypodensity consistent with chronic small vessel disease and corresponding to the abundant bilateral periventricular signal abnormality seen on MRI scan of , these findings consistent with chronic small vessel disease. No new mass effect. IMPRESSION: Abundant bilateral periventricular white matter chronic ischemic disease, as also evident on recent M RI scan of 05/30/2023. No obvious new acute findings in the brain. RADIATION DOSE DELIVERED: Total DLP DATA REPOSITORY: All CT scans at this facility are submitted to the National Radiology Data Registry (NRDR) Dose Index Registry (DIR) with the [employer] (ACR). RADIATION OPTIMIZATION: All CT scans at this facility use at least one of these dose optimization te chniques: automated exposure control; mA and/or kV adjustment per patient size (includes targeted exa ms where dose is matched to clinical indication); or iterative reconstruction.
== END ==
PROVIDERS: PCP Nurse Practitioner Family; Visit Provider Nurse Practitioner Family
DX: I67.82 Cerebral ischemia (principal)
CPT/HCPCS: 70450

== ENCOUNTER → 2023-10-14 10:05 | Outpatient (BNVA) | payer MEDICARE, BC, SELFPAY | PROVIDERS: PCP Nurse Practitioner Family; Referring Provider Nurse Practitioner Family; Visit Provider Psychiatry & Neurology Neurology | DX: R41.3 Other amnesia (principal); G25.0 Essential tremor; I63.81 Other cerebral infarction due to occlusion or stenosis of small artery | CPT/HCPCS: 99213 ==

== ENCOUNTER → 2023-12-19 09:42 | Outpatient (BNVA) | payer MEDICARE, BC, SELFPAY | PROVIDERS: PCP Nurse Practitioner Family; Visit Provider Internal Medicine Cardiovascular Disease | DX: I25.10 Atherosclerotic heart disease of native coronary artery without angina pectoris (principal); I10 Essential (primary) hypertension | CPT/HCPCS: 99213 ==

== ENCOUNTER → 2023-12-26 09:35 | Outpatient (BNVA) | payer MEDICARE, BC, SELFPAY | PROVIDERS: PCP Nurse Practitioner Family; Visit Provider Psychiatry & Neurology Neurology | DX: G25.0 Essential tremor (principal); R41.3 Other amnesia; I63.81 Other cerebral infarction due to occlusion or stenosis of small artery | CPT/HCPCS: 99213 ==

== ENCOUNTER 2024-04-07 01:38 | Outpatient (CLI) | payer MEDICARE, BC, SELFPAY ==
--- NOTE | 2024-04-07 | DI.US_ITS ---
Exam(s) US LOWER EXTREMITY VENOUS LT EXAM: US LOWER EXTREMITY VENOUS LT CLINICAL HISTORY: PAIN LT LOWER LIMB,M79.605 TECHNIQUE: Left lower extremity venous ultrasound performed using grayscale, color-flow, and spectra l Doppler analysis. COMPARISON: No exams were available for comparison FINDINGS: The left common femoral, femoral and popliteal veins demonstrate normal compressibility, augmentation , and color Doppler. The posterior tibial and peroneal veins are patent. The saphenofemoral junction is unremarkable. There is no evidence of a Vazquez cyst. The soft tissues are unremarkable. IMPRESSION: No evidence of a left lower extremity DVT. DATA REPOSITORY:
== END 2024-04-07 01:58 ==
LOC: DI 01:38
PROVIDERS: PCP Nurse Practitioner Family; Visit Provider Nurse Practitioner Family
DX: M79.605 Pain in left leg (principal)
CPT/HCPCS: 93971

== ENCOUNTER → 2024-08-05 11:04 | Outpatient (BNVA) | payer MEDICARE, BC, SELFPAY | PROVIDERS: PCP Nurse Practitioner Family; Referring Provider Nurse Practitioner Family; Visit Provider Psychiatry & Neurology Neurology | DX: R41.3 Other amnesia (principal); G25.0 Essential tremor; I63.81 Other cerebral infarction due to occlusion or stenosis of small artery | CPT/HCPCS: 99214 ==

== ENCOUNTER → 2024-09-09 11:20 | Outpatient (BNVA) | payer MEDICARE, BC, SELFPAY | PROVIDERS: PCP Nurse Practitioner Family; Referring Provider Nurse Practitioner Family; Visit Provider Podiatrist | DX: L60.0 Ingrowing nail (principal); M79.672 Pain in left foot | CPT/HCPCS: 11730 ==

== ENCOUNTER 2024-09-12 10:46 | Emergency (ER) | payer MEDICARE, BC, SELFPAY ==
[2024-09-12] VITALS (40 sets, daily range): BP systolic 140–186; BP diastolic 55–84; PULSE 53–71; RESP 14–24; TEMP 36.4; O2SAT 95–98
--- NOTE | 2024-09-12 10:45 | RT.EKG_ITS ---
APPROVED REPORT Exam: Resting ECG Reason for Exam: chest pain Patient Location: E HR:68 bpm ECG Measurements Heart Rate 68 AXIS MS 193 P -13 QRSd 91 QRS -46 QT 439 T 74 QTc 467 Conclusion Sinus rhythm...normal P axis, V-rate 60- 99 Left anterior fascicular block...axis(240,-40), init forces inf Low voltage, precordial leads...precordial leads <1.0mV Consider anterior infarct...Q >30mS in V2-V5 No stemi
[2024-09-12 11:16] LABS: Abs Immature Grans 0.02 10^3/uL (0.0-0.06); Absolute Basophil Count 0.03 10^3/uL (0.0-0.2); Absolute Eosinophil Count 0.26 10^3/uL (0.0-0.7); Absolute Neutrophil Count 5.99 10^3/uL (1.2-6.7); Basophils % 0.3 %; HCT 47.9 % (36.0-46.0); HGB 16.2 g/dL (11.2-15.7); Immature Grans % 0.2 %; Lymphocytes % 19.3 %; MCH 30.6 pg (27.0-33.0); MCHC 33.8 % (32.0-36.0); MCV 90 fL (80-95); MPV 10.1 fL (8.0-11.0); Monocytes % 9.1 %; Neutrophils % 68.1 %; Platelet Count 255 10^3/uL (130-400); RDW 12.9 % (11.7-14.6)
[2024-09-12 11:31] LABS: PTT Activated 24.1 sec (20.6-30.2)
[2024-09-12 11:34] LABS: ALT 21 U/L (14-59); AST 17 U/L (15-37); Albumin 3.7 g/dL (3.4-5.0); Alkaline Phosphatase 121 U/L (46-116); Anion Gap 6.8 mmol/L (3-11); BUN 16 mg/dL (7-18); Bilirubin, Total 0.4 mg/dL (0.2-1.0); CO2 28.2 mmol/L (21.0-32.0); CREATININE 0.7 mg/dL (0.55-1.02); Calcium 9.4 mg/dL (8.5-10.1); Chloride 108 mmol/L (98-107); Estimated GFR 84.17 (mL/min/1.73m2); Glucose 76 mg/dL (74-106); Magnesium 2.1 mg/dL (1.8-2.4); Potassium 3.6 mmol/L (3.5-5.1); Sodium 143 mmol/L (136-145); Total Protein 7.7 g/dL (6.4-8.2); Troponin I 6 ng/L (<or=51)
--- NOTE | 2024-09-12 12:15 | DI.RAD_ITS ---
Exam(s) XR CHEST 2V PA LATERAL EXAM: XR CHEST 2V PA LATERAL CLINICAL HISTORY: chest pain TECHNIQUE: 2D digital imaging was performed. Two views. COMPARISON: CT CT CHEST PE CTA from 02/27/2023 CR XR PORTABLE CHEST AP from 02/27/2023 FINDINGS: HEART: Normal size. Coronary artery stents. Aorta: Not dilated. PULMONARY VASCULATURE: Normal. MEDIASTINUM: Unremarkable. LUNGS: Clear. PLEURAL SPACE: No pleural effusion or pneumothorax. BONE:Unremarkable for age. SOFT TISSUES: Unremarkable. IMPRESSION: No acute abnormality. The preliminary [facility] report was reviewed. DATA REPOSITORY: RADIATION DOSE DELIVERED:
[2024-09-12 12:39] LABS: Troponin I 7 ng/L (<or=51)
--- NOTE | 2024-09-12 13:09 | DI.[facility]_ITS ---
PROCEDURE INFORMATION: Exam: XR Chest Exam date and time: 09/12/2024 12:37 PM Age: 88 years old Clinical indication: Pain; Chest pressure TECHNIQUE: Imaging protocol: Radiologic exam of the chest. Views: 2 views. COMPARISON: CT CHEST PE CTA 11/30/2022 10:44 FINDINGS: Tubes, catheters and devices: EKG wires overlie the chest. Lungs: Unremarkable. No consolidation. Pleural spaces: Unremarkable. No pleural effusion. No pneumothorax. Heart/Mediastinum: Unremarkable. No cardiomegaly. Vasculature: Atherosclerotic disease. Bones/joints: Unremarkable for patient's age. IMPRESSION: No acute cardiopulmonary findings. Dictated and Authenticated by: Toma May MD. Orderin Milly Crespo MD
--- NOTE | 2024-09-12 13:12 | ED.GENADUL_ITS ---
Discharge Plan Disposition Patient Disposition: Home Condition: Stable Discharge Details Clinical Impression: Chest pain Primary Care Provider: Elyssa Mi ED Provider: Zak Atkins Home Meds and New Rx's Prescriptions: New nitroglycerin 0.4 mg tablet, sublingual 0.4 mg sublingual Q5-15M PRN (Reason: chest pain) Qty: 30 0RF Rx Instructions: do not exceed 3 doses per episode Continued memantine 10 mg tablet 20 mg PO QAM Qty: 180 3RF metoprolol succinate 50 mg tablet extended release 24 hr 50 mg PO DAILY aspirin 81 mg tablet,delayed release (DR/EC) 81 mg PO DAILY rosuvastatin 20 mg tablet 20 mg PO HS amlodipine [Norvasc] 5 mg tablet 5 mg PO DAILY Patient Comments: Take 1 tablet by mouth once a day Discharge Instructions Instructions: Medicines for angina (chest pain), Chest Pain, Adult ED Additional Instructions: Avoid exertional activities. Please follow-up with your global [employer]. Please follow-up with your primary care physician. Return to the emergency department immediately for any worsening or new concerning symptoms. Referrals: Elyssa Mi [Primary Care Provider] - Crystal Silvestre MD [ [facility] - [facility] General Mode of arrival: ambulatory . Date/Time Provider Initiated Documentation: 09/12/24 10:56 . Limitations to Documentation: no limitations . Information obtained by: patient . HPI Narrative: HISTORY OF PRESENT ILLNESS The patient presents to the ER for chest pain, accompanied by her friend. She experienced a transient episode of mild, aching chest pain radiating to her left arm, lasting 30 minutes. The onset was just prior to hospital arrival. She took a single nitroglycerin which may have helped. Pain has since resolved completely. She is asymptomatic at this time. No associated symptoms such as nausea, dizziness, or shortness of breath. No abdominal pain or tenderness. History of stent placement 5 to 6 years ago. No history of diabetes or cancer. Diagnosed with hypercholesterolemia and hypertension, currently on medication. Adherent to antihypertensive regimen this morning. Takes aspirin daily. Related Data Home Medications ?Medication ?Instructions ?Recorded ?Confirmed amlodipine 5 mg tablet (Norvasc) 5 mg PO DAILY 07/20/21 09/12/24 aspirin 81 mg tablet,delayed 81 mg PO DAILY 08/04/21 09/12/24 release metoprolol succinate 50 mg 50 mg PO DAILY 08/04/21 09/12/24 tablet,extended release 24 hr rosuvastatin 20 mg tablet 20 mg PO HS 08/04/21 09/12/24 memantine 10 mg tablet 20 mg (2 x 10 mg) PO QAM #180 tabs 08/04/24 09/12/24 nitroglycerin 0.4 mg sublingual 0.4 mg sublingual Q5-15M PRN chest 09/12/24 tablet pain #30 tabs Previous Rx's ?Medication ?Instructions ?Recorded memantine 10 mg tablet 20 mg (2 x 10 mg) PO QAM #180 tabs 08/04/24 nitroglycerin 0.4 mg sublingual 0.4 mg sublingual Q5-15M PRN chest 09/12/24 tablet pain #30 tabs Allergies Allergy/AdvReac Type Severity Reaction Status Date / Time pravastatin Allergy Mild Other (See Verified 09/12/24 10:54 Comment) simvastatin Allergy Mild Other (See Verified 09/12/24 10:54 Comment) General Stated Complaint: Chest Pain NADINE: 2 Course Vital Signs Vital signs: Vital Signs Temperature 36.4 C L 09/12/24 10:48 Pulse 67 09/12/24 10:48 Respiratory Rate 16 09/12/24 10:48 Blood Pressure 140/84 09/12/24 10:48 Pulse Oximetry 96 09/12/24 10:48 Temperature 36.4 C L 09/12/24 10:48 Pulse 62 09/12/24 12:00 Pulse 62 09/12/24 12:00 Respiratory Rate 15 09/12/24 12:00 Respiratory Effort Normal 09/12/24 10:57 Blood Pressure 169/71 H 09/12/24 11:46 Blood Pressure Mean 105 09/12/24 11:46 Pulse Oximetry 95 09/12/24 12:00 Oxygen Delivery Method Room Air 09/12/24 10:48 Oxygen Flow Rate 0 09/12/24 10:48 Pain Level 5 09/12/24 10:48 Lab/Test Results Lab/Test Results: Laboratory Tests Range/Units 09/12/24 09/12/24 09/12/24 11:05 11:13 12:08 WBC (4.4-10.8) 10^3/uL 8.80 RBC (3.93-5.22) 10^6/uL 5.30 H Hgb (11.2-15.7) g/dL 16.2 H Hct (36.0-46.0) % 47.9 H MCV (80-95) fL 90 MCH (27.0-33.0) pg 30.6 MCHC (32.0-36.0) % 33.8 RDW (11.7-14.6) % 12.9 Plt Count (130-400) 10^3/uL 255 MPV (8.0-11.0) fL 10.1 Immature Gran % % 0.2 Neutrophils % % 68.1 Lymphocytes % % 19.3 Monocytes % % 9.1 Eosinophils % % 3.0 Basophils % % 0.3 Nucleated RBC % (0.0-0.3) % 0.0 Absolute Neutrophils (1.2-6.7) 10^3/uL 5.99 Absolute Lymphocytes (1.2-3.4) 10^3/uL 1.70 Absolute Monocytes (0.1-0.8) 10^3/uL 0.80 Absolute Eosinophils (0.0-0.7) 10^3/uL 0.26 Absolute Basophils (0.0-0.2) 10^3/uL 0.03 APTT (20.6-30.2) sec 24.1 Sodium (136-145) mmol/L 143 Potassium (3.5-5.1) mmol/L 3.6 Chloride (98-107) mmol/L 108 H Carbon Dioxide (21.0-32.0) mmol/L 28.2 Anion Gap (3-11) mmol/L 6.8 BUN (7-18) mg/dL 16 Creatinine (0.55-1.02) mg/dL 0.7 Est GFR (CKD-EPI 2020) (mL/min/1.73m2) 84.17 Glucose (74-106) mg/dL 76 Calcium (8.5-10.1) mg/dL 9.4 Magnesium (1.8-2.4) mg/dL 2.1 Total Bilirubin (0.2-1.0) mg/dL 0.4 AST (15-37) U/L 17 ALT (14-59) U/L 21 Alkaline Phosphatase (46-116) U/L 121 H Troponin I (<or=51) ng/L 6 7 Total Protein (6.4-8.2) g/dL 7.7 Albumin (3.4-5.0) g/dL 3.7 Medical Decision Making ASSESSMENT AND PLAN Initial Assessment: 88-year-old female with multiple medical problems including history of coronary artery disease, hypertension, hyperlipidemia, anxiety, patient presents with chest pain radiating to the left arm, described as a mild ache lasting about 30 minutes. Patient is hemodynamically stable. Saturating well in no respiratory distress. Asymptomatic at time of examination. ED Course: - Considered ACS. EKG reviewed and interpreted by me: Please see report, left anterior fascicular block. No STEMI. Initial troponin negative. Plan to trend. - Considered pneumothorax. Chest x-ray reviewed and interpreted by radiology: No acute cardiopulmonary findings. Mediastinum unremarkable. - Repeat 1 hour and and 3 hour trop negative and unchanged. - Considered PE, low risk, age adjusted ddimer negative. - Patient reassessed and has remained stable. No recurrent pain. She has remained hemodynamically stable. - All results were discussed with the patient. As part of a shared decision- making process, plan for discharge with close outpatient follow-up. Final Assessment: Chest pain, possible angina Clinical Impression: - Chest pain Disposition: -Plan for discharge with close outpatient follow-up MDM Components Evaluation: - Number of Differential Diagnoses or Management Options: Chest pain, elevated blood pressure - Amount and Complexity of Data Reviewed: Blood work, EKG, physical examination, X-ray - Risk of Complication and Morbidity or Mortality: High risk due to history of stents and arterial disease This document was written with the assistance of BIRDIE Ochoa. The patient consented to its use. Lab Data Lab results reviewed: Yes I reviewed the patient's lab results. Labs: Laboratory Tests Range/Units 09/12/24 09/12/24 09/12/24 11:05 11:13 12:08 WBC (4.4-10.8) 10^3/uL 8.80 RBC (3.93-5.22) 10^6/uL 5.30 H Hgb (11.2-15.7) g/dL 16.2 H Hct (36.0-46.0) % 47.9 H MCV (80-95) fL 90 MCH (27.0-33.0) pg 30.6 MCHC (32.0-36.0) % 33.8 RDW (11.7-14.6) % 12.9 Plt Count (130-400) 10^3/uL 255 MPV (8.0-11.0) fL 10.1 Immature Gran % % 0.2 Neutrophils % % 68.1 Lymphocytes % % 19.3 Monocytes % % 9.1 Eosinophils % % 3.0 Basophils % % 0.3 Nucleated RBC % (0.0-0.3) % 0.0 Absolute Neutrophils (1.2-6.7) 10^3/uL 5.99 Absolute Lymphocytes (1.2-3.4) 10^3/uL 1.70 Absolute Monocytes (0.1-0.8) 10^3/uL 0.80 Absolute Eosinophils (0.0-0.7) 10^3/uL 0.26 Absolute Basophils (0.0-0.2) 10^3/uL 0.03 APTT (20.6-30.2) sec 24.1 D-Dimer (<500) ng/mlFEU Sodium (136-145) mmol/L 143 Potassium (3.5-5.1) mmol/L 3.6 Chloride (98-107) mmol/L 108 H Carbon Dioxide (21.0-32.0) mmol/L 28.2 Anion Gap (3-11) mmol/L 6.8 BUN (7-18) mg/dL 16 Creatinine (0.55-1.02) mg/dL 0.7 Est GFR (CKD-EPI 2020) (mL/min/1.73m2) 84.17 Glucose (74-106) mg/dL 76 Calcium (8.5-10.1) mg/dL 9.4 Magnesium (1.8-2.4) mg/dL 2.1 Total Bilirubin (0.2-1.0) mg/dL 0.4 AST (15-37) U/L 17 ALT (14-59) U/L 21 Alkaline Phosphatase (46-116) U/L 121 H Troponin I (<or=51) ng/L 6 7 Total Protein (6.4-8.2) g/dL 7.7 Albumin (3.4-5.0) g/dL 3.7 Range/Units 09/12/24 09/12/24 14:05 14:15 WBC (4.4-10.8) 10^3/uL RBC (3.93-5.22) 10^6/uL Hgb (11.2-15.7) g/dL Hct (36.0-46.0) % MCV (80-95) fL MCH (27.0-33.0) pg MCHC (32.0-36.0) % RDW (11.7-14.6) % Plt Count (130-400) 10^3/uL MPV (8.0-11.0) fL Immature Gran % % Neutrophils % % Lymphocytes % % Monocytes % % Eosinophils % % Basophils % % Nucleated RBC % (0.0-0.3) % Absolute Neutrophils (1.2-6.7) 10^3/uL Absolute Lymphocytes (1.2-3.4) 10^3/uL Absolute Monocytes (0.1-0.8) 10^3/uL Absolute Eosinophils (0.0-0.7) 10^3/uL Absolute Basophils (0.0-0.2) 10^3/uL APTT (20.6-30.2) sec D-Dimer (<500) ng/mlFEU 831 H Sodium (136-145) mmol/L Potassium (3.5-5.1) mmol/L Chloride (98-107) mmol/L Carbon Dioxide (21.0-32.0) mmol/L Anion Gap (3-11) mmol/L BUN (7-18) mg/dL Creatinine (0.55-1.02) mg/dL Est GFR (CKD-EPI 2020) (mL/min/1.73m2) Glucose (74-106) mg/dL Calcium (8.5-10.1) mg/dL Magnesium (1.8-2.4) mg/dL Total Bilirubin (0.2-1.0) mg/dL AST (15-37) U/L ALT (14-59) U/L Alkaline Phosphatase (46-116) U/L Troponin I (<or=51) ng/L 7 Total Protein (6.4-8.2) g/dL Albumin (3.4-5.0) g/dL Quality:SDOH Health Related Social Needs: No Data to Display PFSH All Active Problems (Updated 09/12/24 @ 15:27 by Zak Atkins MD) Chest pain (Acute) Pain in left foot (Acute) DNR (do not resuscitate) (Acute) See June 2023 [facility]. Does want transfer and treat, IV hydration and abx History of stroke in adulthood (Acute) Lacunar infarct Advanced care planning/counseling discussion (Acute) Palliative care patient (Acute) Essential tremor (Acute) Memory impairment (Acute) Hepatic cyst (Chronic) Intrahepatic bile duct dilation (Chronic) Hyperlipidemia (Chronic) CAD (coronary artery disease) (Chronic) NSTEMI and coronary artery stenting 07/2021 [facility] [place], continues with stable angina Essential hypertension (Chronic) Medical History Left sided lacunar stroke Nail dystrophy Multiple nevi Dyspepsia Smoker Family history of breast cancer in first degree relative Osteopenia Seborrheic keratosis Anxiety Hypertension History of prediabetes Asymptomatic microscopic hematuria Vitamin D deficiency Non-ST elevation myocardial infarction (NSTEMI) 07/2021 [facility] [place] stents to RCA and cx LAD disease not intervened on. Surgical History Status post cardiac catheterization Hx of hysterectomy, total Family History Other Heart disease Hyperlipidemia Hypertension Social History Smoking/Tobacco Use Status: Current every day Tobacco Type: cigarettes Smoking packs per day: 0.5 Smoking cigarettes per day: 10.0 Smoking risk assessment performed?: Yes Alcohol Intake: current Alcohol Intake frequency: 0-2 drinks per day Alcohol type: wine Drug use: Never Substance use type: does not use Details: drinks a glass of wine each day Housing: house Number of Children: 4 current occupation: Retired What is your relationship status?: Panel score (0-1 are the most socially isolated patients): 0 Do you feel safe at home: Yes Do you feel safe in your relationship?: Yes
[2024-09-12 14:28] LABS: Troponin I 7 ng/L (<or=51)
[2024-09-12 14:46] LABS: D-Dimer 831 ng/mlFEU (<500)
== END 2024-09-12 15:40 | disposition home or self-care (01) ==
PROVIDERS: Emergency Provider Student in an Organized Health Care Education/Training Program; PCP Nurse Practitioner Family
DX: R07.9 Chest pain, unspecified (principal); Z86.79 Personal history of other diseases of the circulatory system; F17.210 Nicotine dependence, cigarettes, uncomplicated
CPT/HCPCS: 99284 ×2; 36415; 80053; 93005; 71046; 83735; 84484; 85025; 85379; 85730; 93010

== ENCOUNTER 2024-09-23 11:28 | Outpatient (REF) | payer MEDICARE, BC, SELFPAY ==
[2024-09-23 15:11] LABS: Hemoglobin A1C 6.1 % (<5.7)
[2024-09-23 15:47] LABS: ALT 21 U/L (14-59); AST 21 U/L (15-37); Albumin 3.7 g/dL (3.4-5.0); Alkaline Phosphatase 113 U/L (46-116); Anion Gap 9.4 mmol/L (3-11); BUN 18 mg/dL (7-18); Bilirubin, Total 0.5 mg/dL (0.2-1.0); CO2 28.6 mmol/L (21.0-32.0); CREATININE 0.9 mg/dL (0.55-1.02); Calcium 9.1 mg/dL (8.5-10.1); Calculated LDL 109 mg/dL (<100); Chloride 107 mmol/L (98-107); Cholesterol 190 mg/dL (<200); Estimated GFR 62.26 (mL/min/1.73m2); Glucose 72 mg/dL (74-106); HDL Cholesterol 66 mg/dL (>or=50); Potassium 4.1 mmol/L (3.5-5.1); Sodium 145 mmol/L (136-145); Triglyceride 75 mg/dL (<150); Vitamin D 25 Total 92 ng/mL (30-100)
[2024-09-23 16:15] LABS: COMMENT (LAB VIEW ONLY) 31.94 mg/dL
[2024-09-23 16:16] LABS: Microalb ug/mg Crea 105.5 ug/mg Cr
== END 2024-09-23 11:29 | disposition home or self-care (01) ==
LOC: NCHCN 11:28
PROVIDERS: PCP Nurse Practitioner Family; Visit Provider Nurse Practitioner Family
DX: I10 Essential (primary) hypertension (principal); R73.03 Prediabetes; M85.89 Other specified disorders of bone density and structure, multiple sites
CPT/HCPCS: 80053; 80061; 82306; 82043; 82570; 83036

== ENCOUNTER → 2025-02-03 11:10 | Outpatient (BNVA) | payer MEDICARE, BC, SELFPAY | PROVIDERS: PCP Nurse Practitioner Family; Visit Provider Psychiatry & Neurology Neurology | DX: R41.3 Other amnesia (principal); G25.0 Essential tremor; I63.81 Other cerebral infarction due to occlusion or stenosis of small artery; I10 Essential (primary) hypertension | CPT/HCPCS: 99214 ==